=== PATIENT | male | born 1955 | race Caucasian/White ===

== ENCOUNTER 2023-12-10 17:35 | Inpatient (IN) | payer MEDICARE, OTHER, SELFPAY ==
[2023-12-10] VITALS (11 sets, daily range): BP systolic 107–170; BP diastolic 59–107; BMI 24.8; BMI 25.1
[2023-12-10 13:47] LABS: % Basophils 0.2 % (0-2); % Eosinophils 1.8 % (0-6); % Immature Granulocytes 0.8 % (0-0.5); % Lymphocytes 5.8 % (20.5-51.1); % Monocytes 6.8 % (1.7-9.3); % Neutrophils 84.6 % (42.2-75.2); Absolute Eosinophils 0.3 10^3/uL (0-0.7); Absolute Immature Granulocytes 0.1 10^3/uL (0-0.05); Absolute Monocytes 1.2 10^3/uL (0.1-0.6); Absolute Neutrophils 14.5 10^3/uL (1.4-6.5); Hemoglobin 11.4 g/dL (13.0-18.0); Mean Corp Hgb Conc. 33.5 g/dL (33.0-37.0); Mean Corpuscular Hgb 32.9 pg (27.0-31.0); Mean Platelet Volume 11.4 fL (7.4-10.4); Nucleated Red Blood Cells % 0 % (-); Platelet Count 210 10^3/uL (130-400); Red Blood Cell Count 3.47 10^6/uL (4.70-6.10); Red Cell Dist. Width 15.8 % (11.5-14.5); White Blood Cell Count 17.1 10^3/uL (4.8-10.8)
[2023-12-10 13:48] LABS: Urine Albumin Trace (Neg - Trace); Urine Bilirubin Negative (Negative); Urine Character Clear (Clear); Urine Color Yellow; Urine Glucose Negative (Negative); Urine Ketone Negative (Negative); Urine Leukocyte 2+ (Negative); Urine Nitrite Negative (Negative); Urine Occult Blood Negative (Negative); Urine Specific Gravity 1.015 (<1.030); Urine Urobilinogen Negative (Neg - 1+)
[2023-12-10 14:10] LABS: ALT (SGPT) 14 U/L (0-50); AST (SGOT) 17 U/L (17-59); Albumin 3.3 g/dl (3.5-5.0); Alkaline Phosphatase 100 U/L (38-126); Blood Urea Nitrogen 28 mg/dl (9-20); Calcium 9.2 mg/dl (8.4-10.2); Carbon Dioxide 20 mmol/L (22-30); Chloride 113 mmol/L (98-107); Estimated Creatinine Clearance 61 ml/min; Glucose 88 mg/dl (70-99); Lactic Acid 1.2 mmol/L (0.7-2.0); Potassium 3.8 mmol/L (3.5-5.1); Sodium 139 mmol/L (135-145); Total Bilirubin 0.5 mg/dl (0.2-1.3); Total Protein 5.8 g/dl (6.3-8.2); eGFR > 60.00
[2023-12-10 14:12] LABS: COVID-19 Antigen Negative (Negative)
[2023-12-10 14:12] LABS: Urine Red Blood Cell 0-2 /HPF (0-2)
[2023-12-10] MEDS: TYLENOL 650 MG PO (14:17)
--- NOTE | 2023-12-10 15:08 | ED.GENMED ---
History of Present Illness
General
Chief Complaint: Weakness
Source: patient and spouse
Exam Limitations: none
Time Seen by Provider: 12/10/23 14:36
Nursing documentation reviewed up to this point in time: agreed with
Travel History
Have you had any contact with someone who has COVID-19?: No
Do you have any symptoms of coronavirus? Fever > 100 degrees, chills, cough, shortness of breath, sore throat, loss of taste or smell, muscle aches, or headache?: Yes
Symptoms:: see note
History of Present Illness
History of Present Illness:
68-year-old male with significant past medical history including CAD with multiple stents, renal transplants x 2, chronic Castillo's palsy, chronic pain on chronic narcotics,reflux hypertension heart murmur hyperlipidemia SD presents to the ER for
evaluation by reports patient was very confused when he woke up this morning. They were not aware that he had a fever until patient got to the ER. Patient feels tired. Patient denies any chest pain shortness of breath. reports no cough
no complains of runny nose sore throat. Patient does make urine but denies any urinary problems.
reports that patient has been' off' the past several weeks to months. They have adjusted some of his medications. He is on chronic opiates for chronic jhbs-wd-hnak arthritis. He does take 1 tablet every 4 hours of oxycodone/acetaminophen.
He in addition is on Xanax 1 mg 2 tablets at bedtime.
Patient is on antirejection medication
Past History
Past History
ED Past Medical History: CAD, Cancer (Testicular CA with left testicle removed), CVA, HTN, Hypercholesterolemia, SD and Other (kidney transplant)
ED Past Surgical History: Cardiac (Stents X3, CABG) and Other (Kidney transplant, Hernia repair X7, Parathyroidectomy, Bladder surgery)
Social History
Tobacco: Former smoker
Alcohol: None
Drug: None
Personal:
Living: alone
Review of Systems
Review of Systems
Allergies reviewed?: Yes
Other source history: family
All Other Systems: ROS reviewed and negative except as documented in HPI and ROS
Constitutional: Reports fatigue; Denies fever
EENT: Reports no symptoms
Respiratory: Reports no symptoms; Denies cough or trouble breathing
Cardiac: Reports no symptoms
ABD/GI: Reports no symptoms
Musculoskeletal: Reports no symptoms
Skin: Reports no symptoms
Neurological: Reports other (Increased confusion)
Psychiatric: Reports no symptoms
Phy Exam
General Physical Exam
General Presentation: no apparent distress
General age: appears stated age
General Skin: warm and dry
General Habitus: normal
General Mental: alert
General Hydration: appears well hydrated
Cardiovascular Exam
Cardiovascular Exam: regular rate/rhythm, normal peripheral pulses and systolic murmur
Pulmonary Exam
Pulmonary Exam: no respiratory distress and other (crackles left mid )
Gastrointestinal Exam
Gastrointestinal Exam: non tender and soft
Neurological Exam
Neurological Exam: alert
Musculoskeletal Exam
Musculoskeletal Exam: full ROM
Skin Exam
Skin Exam: normal color and warm/dry
Psychiatric Exam
Psychiatric Exam: normal mood/affect
Course
Orders/Labs/Results
Orders:
Orders
12/10/23 13:36
Electrocardiogram (*1) Urgent
Reason for Study: Other
Other Reason for Exam: Possible Sepsis
Cardiac Monitoring- Treatment ONCE
EKG- Treatment ONCE
IV Insert/Care/Rem.- Treatment PRN
CR Chest - 2 Views Urgent
Comment:
Reason For Exam: suspected infection
O2 Therapy [RESP] Urgent
Titrate/Wean O2 to maintain O2 sat greater than (%): 93
Special Instructions: TO MAINTAIN CONTINUOUS O2 SATS > OR = 93%
Pulse Ox/cont/shift [RESP] Urgent
Quantity: 1
Special Instructions: CONTINUOUS
12/10/23 13:39
Comprehensive Metabolic Panel Urgent
Lactic Acid Q4H
Comment: ON ICE, CANCEL 2ND ORDER IF FIRST LACTIC ACID LEVEL <2
Urinalysis Reflex To Culture Urgent
Date Specimen was Collected: 12/10/23
Time Specimen was Collected: 13:36
Urine Microscopic Reflex Cult Urgent
Blood Culture Q30M
GUILLERMO Source: Blood/Venous
Specimen Description:
Comment: FROM 2 SEPARATE SITES
Urine Culture Urgent
GUILLERMO Source: U
Specimen Description:
Date Specimen was Collected: 12/10/23
Time Specimen was Collected: 13:36
12/10/23 13:40
Complete Blood Count/With Diff Urgent
12/10/23 13:47
Blood Culture Q30M
GUILLERMO Source: Blood/Venous
Specimen Description:
Comment: FROM 2 SEPARATE SITES
12/10/23 13:48
COVID-19 Antigen Urgent
Source: Nasal Swab
Influenza A+B Rapid Molecular Urgent
GUILLERMO Source: Nasal Swab
Specimen Description:
12/10/23 14:09
Acetaminophen [Tylenol] 650 mg .ROUTE .STK-MED ONE
12/10/23 14:10
Acetaminophen [Tylenol] 650 mg PO NOW STA
12/10/23 15:20
0.9% Sodium Chloride 500 ml [Nss] 500 ml IV BOLUS
Abnormal Lab Results
12/10/23 12/10/23
13:39 13:40
WBC 17.1 H 10^3/uL
(4.8-10.8)
RBC 3.47 L 10^6/uL
(4.70-6.10)
Hgb 11.4 L g/dL
(13.0-18.0)
Hct 34.0 L %
(39.0-52.0)
MCV 98.0 H fL
(80.0-94.0)
MCH 32.9 H pg
(27.0-31.0)
RDW 15.8 H %
(11.5-14.5)
MPV 11.4 H fL
(7.4-10.4)
Abs Immat Gran (auto) 0.1 H 10^3/uL
(0-0.05)
Absolute Neuts (auto) 14.5 H 10^3/uL
(1.4-6.5)
Absolute Lymphs (auto) 1.0 L 10^3/uL
(1.2-3.4)
Absolute Monos (auto) 1.2 H 10^3/uL
(0.1-0.6)
Immature Gran % 0.8 H %
(0-0.5)
Neutrophils % 84.6 H %
(42.2-75.2)
Lymphocytes % 5.8 L %
(20.5-51.1)
Chloride 113 H mmol/L
(98-107)
Carbon Dioxide 20 L mmol/L
(22-30)
BUN 28 H mg/dl
(9-20)
Total Protein 5.8 L g/dl
(6.3-8.2)
Albumin 3.3 L g/dl
(3.5-5.0)
Leukocyte Esterase Rfl 2+ A
(Negative)
12/10/23 13:40
12/10/23 13:39
Vital Signs
Initial and Last Documented VS:
Initial Vital Signs
BP
140/107
12/10/23 13:11
Last Documented Vital Signs
Temp Pulse Resp BP Pulse Ox
101.1 F H 67 19 135/59 93
12/10/23 13:13 12/10/23 15:15 12/10/23 15:15 12/10/23 15:00 12/10/23 14:00
Recruitment Manager consulted with Physician
Recruitment Manager consulted with physician?: Yes
Name of Physician Consulted: Victor M
MDM/Problems Addressed
Differential Diagnosis Includes:
Not limited to dehydration electrolyte abnormality infection
MDM/Problems Addressed:
Patient is a 68-year-old male with significant medical history as documented end-stage renal disease with renal transplant, CAD with multiple stents along with other medical history presented for confusion as per . Patient was found to be
febrile at one 1.1 with a white count of 17,000 normal lactic acid. X-ray does show left-sided pneumonia. Patient negative for COVID-negative for flu. Patient appears dry on exam with an elevated BUN of 28 with a normal creatinine normal stable
potassium 3.8 normal sodium of 139. Patient was given fluids blood culture sent IV antibiotics will require mission
Chronic conditions affecting care:
Renal transplant on antirejection medication, multiple cardiac stents hypertension
Acute Exacerbation and/or Progression of Chronic Illness: Immunosuppressed
*Radiology
Radiology exam reviewed: radiology read reviewed
*Pulse Oximetry
Patient hypoxic: no
*EKG
Interpreted by ED Provider?: Yes
Heart Rate: 70
Rate: normal
Rhythm: sinus
Ischemia: non-specific ST changes
*Critical Care Note
Total Time (30-74mins, 75-104mins- exclusive of procedures): Not Applicable
ED Attending Note
-
Portions of this chart may have been created with voice recognition software.� Occasional wrong word or��sound alike� substitutions may have occurred due to the inherent limitations of voice recognition software.
Discharge Plan
Departure
Patient Disposition: Admit
Date of Disposition: 12/10/23
Time of Disposition: 16:49
Admit to: Med/Surg
Admit to doctor: hospitalist
Presentation/result/management discussed w/ accepting MD/DO: Hospitalist
Patient with high blood pressure during this ER visit?: Yes
Condition: Fair
Covid-19: Negative COVID-19
Discharge Problem:
Pneumonia, Altered mental status, Fever
Prescriptions:
No Action
metoprolol tartrate 50 MG tablet
50 mg PO BID
colchicine 0.6 MG tablet
0.6 mg PO DAILY
prednisone 5 MG tablet
5 mg PO DAILY
oxycodone-acetaminophen [Percocet] 1 EACH tablet
1 tab PO Q4HPRN PRN (Reason: moderate RA ANKLE pain)
Patient Comments:
PATIENT LASTED PICKED UP ON 10/18/20 #180
tamsulosin 0.4 MG capsule
0.8 mg PO HS
allopurinol 300 MG tablet
300 mg PO DAILY
ranolazine 500 MG tablet extended release 12 hr
500 mg PO BID
cholecalciferol (vitamin D3) 1,000 UNITS tablet
1,000 units PO DAILY
clopidogrel 75 MG tablet
75 mg PO DAILY Qty: 90 3RF
pantoprazole 40 MG tablet,delayed release (DR/EC)
40 mg PO DAILY Qty: 90 3RF
aspirin 81 MG tablet,delayed release (DR/EC)
81 mg PO DAILY Qty: 1 0RF
ezetimibe 10 MG tablet
10 mg PO HS
atorvastatin 40 MG tablet
40 mg PO HS
mycophenolate mofetil [CellCept] 250 MG capsule
250 mg PO BID
senna 8.6 MG capsule
2 tab PO HS
PreserVision AREDS 1 CAP capsule
1 cap PO BID
Propylene Glycol/Peg 400 [Genteal Tears Severe Gel Drops] 8 ML Drops.Gel
8 ml OP HS
methenamine hippurate [Hiprex] 1 gram Tablet
1 g PO BID
nitroglycerin 0.4 mg Tablet, Sublingual
0.4 mg SUBLINGUAL Q5-15M PRN (Reason: chest pain)
alprazolam [Xanax] 1 mg Tablet
1 mg PO TID
tacrolimus [Prograf] 1 mg Capsule
See Rx Instructions .ROUTE .COMPLEX
Rx Instructions:
3 mg orally every morning
2 mg orally every evening
valsartan 40 mg Tablet
40 mg PO BID
bupropion HCl [Wellbutrin XL] 300 mg Tablet Extended Release 24 Hr
300 mg PO DAILY
gabapentin 100 mg Capsule
200 mg PO HS
Systane (PF) 0.4-0.3 % Dropperette
1 drp OPHTHALMIC (EYE) TID
docusate sodium 100 mg Capsule
100 mg PO HS
isosorbide mononitrate 30 mg Tablet Extended Release 24 Hr
30 mg PO DAILY Qty: 90 5RF
Referrals:
Mode Rubio MD [Family Provider] -
Interventions
Interventions:
*Risk Screen - Suicide Last Done: 12/10/23 15:05
*General Assessment Last Done: 12/10/23 15:05
*Neglect/Abuse Screening Last Done: 12/10/23 13:35
ED- Fall Risk Assessment Last Done: 12/10/23 14:04
*ED COVID-19 Vaccine History Last Done: 12/10/23 13:38
ED- Cardiac Assessment Last Done: 12/10/23 14:04
ED- Neurological Assessment Last Done: 12/10/23 14:04
ED- Pulmonary Assessment Last Done: 12/10/23 14:04
[2023-12-10] MEDS: NSS 500 IV (15:28)
[2023-12-10] MEDS: AZACTAM 2000 MG IV (17:06)
[2023-12-10] MEDS: VANCOCIN 200 IV (17:22)
--- NOTE | 2023-12-10 17:27 | HPS.HSE ---
Family Physician
-
Family Physician: Mode Rubio
Chief Complaint
-
malaise
History of Present Illness
68yo M with PMHx of HTN, HLD, CAD s/p stents, L Eden palsy, kidney transplany @1996 and 2007 cmae with 1 day of weakness and mild confusion. He fell to the floor and had no strength to get up. XR in ED showed L midlung pneumonia
Medical History
Past Medical History
Past Medical History: Reports Other
Additional Past Medical History:
See HPI
Past Surgical History: Reports Other
Additional Past Surgical History:
See HPI
Social History
Tobacco: Non-smoker
Alcohol: None
Drug: None
Family History
Family History: Not pertinent
Allergies / Home Medications
Allergies reflects when Allergies were last updated in [employer].
Home Medications with original date entered in [employer]
Allergy/Medication List:
Allergies
Allergy/AdvReac Type Severity Reaction Status Date / Time
adhesive tape Allergy Rash Verified 07/10/23 11:46
amoxicillin Allergy Rash/NAUSEA Verified 04/25/22 21:39
levofloxacin [From Levaquin] Allergy Nausea Verified 04/25/22 14:12
nitrofurantoin Allergy Rash Verified 04/25/22 14:12
[From Macrobid]
sulfamethoxazole Allergy Nausea Verified 07/10/23 11:46
[From Bactrim]
Tetracyclines Allergy Rash/'swells Verified 04/25/22 21:39
Palate'
trimethoprim [From Bactrim] Allergy Nausea Verified 07/10/23 11:46
Home Medications
colchicine 0.6 mg tablet 0.6 mg PO DAILY Gout 04/27/19
allopurinol 300 mg tablet 300 mg PO DAILY Gout 10/03/19
cholecalciferol (vitamin D3) 25 mcg (1,000 unit) tablet 1,000 units PO DAILY Supplement 10/03/19
prednisone 5 mg tablet 5 mg PO DAILY Transplant 10/03/19
ranolazine 500 mg tablet,extended release,12 hr 500 mg PO BID Heart Failure 10/03/19
tamsulosin 0.4 mg capsule 0.8 mg PO HS Urinary issue 10/03/19
clopidogrel 75 mg tablet 75 mg PO DAILY #90 tabs 10/04/19
pantoprazole 40 mg tablet,delayed release 40 mg PO DAILY #90 tabs 10/04/19
ezetimibe 10 mg tablet 10 mg PO HS High cholesterol 01/26/20
atorvastatin 40 mg tablet 40 mg PO HS High cholesterol 10/24/20
mycophenolate mofetil 250 mg capsule (CellCept) 250 mg PO BID 07/25/21
vitamins A,C,X-lgyd-pamzef 4,296 mcg-226 mg-90 mg capsule (PreserVision AREDS) 1 cap PO BID 07/25/21
methenamine hippurate 1 gram tablet (Hiprex) 1 g PO BID 04/25/22
nitroglycerin 0.4 mg sublingual tablet 0.4 mg sublingual [id number] PRN chest pain 04/25/22
alprazolam 1 mg tablet (Xanax) 2 mg PO HS 07/10/23
bupropion HCl 300 mg 24 hr tablet, extended release (Wellbutrin XL) 300 mg PO DAILY 07/10/23
docusate sodium 100 mg capsule 100 mg PO HS 07/10/23
gabapentin 100 mg capsule 200 mg PO HS 07/10/23
peg 400-propylene glycol (PF) 0.4 %-0.3 % eye drops in a dropperette (Systane (PF)) 1 drp BOTH EYES HS 07/10/23
tacrolimus 1 mg capsule, immediate-release (Prograf) 3 mg PO DAILY 07/10/23
alprazolam 1 mg tablet 1 mg PO DAILY PRN anxiety 12/10/23
aspirin 81 mg tablet,delayed release 81 mg PO HS 12/10/23
isosorbide mononitrate 60 mg tablet,extended release 24 hr 60 mg PO BID 12/10/23
metoprolol succinate 50 mg tablet,extended release 24 hr 50 mg PO BID 12/10/23
oxycodone-acetaminophen 10 mg-325 mg tablet 1 tab PO Q4H PRN moderate to severe pain 12/10/23
tacrolimus 1 mg capsule, immediate-release 2 mg PO HS 12/10/23
valsartan 80 mg tablet 80 mg PO BID 12/10/23
Review of Systems
-
A 12 point ROS was completed and negative except as noted: Yes
Constitutional: Reports See HPI
Physical Exam
Vital Signs
Vital Signs
Temp Pulse Resp BP Pulse Ox
101.1 F H 60 20 135/70 94
12/10/23 13:13 12/10/23 16:30 12/10/23 16:30 12/10/23 16:23 12/10/23 16:30
Physical Exam
General: Well Developed, Well Nourished and No Apparent Distress
HEENT: NormoCephalic, Anicteric and Moist mucous membranes
Respiratory: Rales (on L base)
Cardiac: S1/S2 and Regular Rhythm
GI: Soft, Non Tender and Non Distended
Musculoskeletal: No Clubbing, No Cyanosis and No Edema
Skin: Warm; No Rash
Neuro: Awake, Alert, Oriented, AO x 3 and Cranial Nerves Intact (L face bells palsy )
Psych: Calm
Laboratory Results
-
12/10/23 13:40
12/10/23 13:39
Laboratory Results
Lactic Acid 1.2 mmol/L (0.7-2.0) 12/10/23 13:39
Lactic Acid Cancelled 12/10/23 13:39
Total Bilirubin 0.5 mg/dl (0.2-1.3) 12/10/23 13:39
AST 17 U/L (17-59) 12/10/23 13:39
ALT 14 U/L (0-50) 03/14/24 13:39
Alkaline Phosphatase 100 U/L (38-126) 12/10/23 13:39
Impression/Plan
-
A/P:
#malaise 2/2 L pneumonia with unspecified organism in immunocompromized patient
Ceftriaxone/Doxy since patient is non-toxic appearing, hemodynamically stable
not producing sputum
Bcx pending
COVID-19 and Influenza neg
UA also pending
#Recent fall
CT head
not on blood thinner
#Hx of kidney transplant
check Prograf level
Cellcept 250mg BID
Prograf 2mg BID (recently AM dose decreased)
#Mild macrocytic anemia
check B12, folate
#Essential HTN
#HLD
#CAD s/p PCI
#Aortic insufficiency
#PAD
#Iatrogenic adrenal insufficiency
cont home meds
DVT ppx hep
Full code
This interaction required high level of medical decision making due to PMHx complexity
[2023-12-10] MEDS: ZITHROMAX INFUSION 250 IV (18:32)
--- NOTE | 2023-12-10 21:09 | PTCARENOTE ---
Pt admitted to room 2124 from Ed, aaox3, no c/o pain, oriented to room and call light. Pt stating that has dentures in his personal bag and will get them out when needed for breakfast.
[2023-12-10] MEDS: PROGRAF 2 MG PO (22:19)
[2023-12-10] MEDS: ZETIA 10 MG PO (22:20)
[2023-12-10] MEDS: RANEXA EXTENDED RELEASE 500 MG PO (22:20)
[2023-12-10] MEDS: NEURONTIN 200 MG PO (22:21)
[2023-12-10] MEDS: CELLCEPT 250 MG PO (22:21)
[2023-12-10] MEDS: ASPIR LOW (ENTERIC COATED) 81 MG PO (22:22)
[2023-12-10] MEDS: TOPROL XL 50 MG PO (22:22)
[2023-12-10] MEDS: FLOMAX 0.800000000000000044 MG PO (22:22)
[2023-12-10] MEDS: DIOVAN 80 MG PO (22:22)
[2023-12-10] MEDS: IMDUR (EXTENDED RELEASE) 60 MG PO (22:22)
[2023-12-10] MEDS: LIPITOR 40 MG PO (22:23)
[2023-12-10] MEDS: COLACE 100 MG PO (22:23)
[2023-12-10] MEDS: XANAX 1 MG PO (23:03)
[2023-12-10] MEDS: HEPARIN 5000 UNITS SC (23:05)
[2023-12-10] MEDS: STERILE WATER FOR INJECTION 10 ML IV (23:05)
[2023-12-10] MEDS: ROCEPHIN 1000 MG IV (23:05)
[2023-12-11 05:46] LABS: % Basophils 0.2 % (0-2); % Eosinophils 1.9 % (0-6); % Immature Granulocytes 0.8 % (0-0.5); % Lymphocytes 10.3 % (20.5-51.1); % Monocytes 7.3 % (1.7-9.3); % Neutrophils 79.5 % (42.2-75.2); Absolute Eosinophils 0.2 10^3/uL (0-0.7); Absolute Immature Granulocytes 0.1 10^3/uL (0-0.05); Absolute Lymphocytes 1.3 10^3/uL (1.2-3.4); Absolute Monocytes 0.9 10^3/uL (0.1-0.6); Absolute Neutrophils 10.1 10^3/uL (1.4-6.5); Hematocrit 31.9 % (39.0-52.0); Hemoglobin 10.6 g/dL (13.0-18.0); Mean Corp Hgb Conc. 33.2 g/dL (33.0-37.0); Mean Corpuscular Hgb 32.4 pg (27.0-31.0); Mean Corpuscular Volume 97.6 fL (80.0-94.0); Nucleated Red Blood Cells % 0 % (-); Platelet Count 180 10^3/uL (130-400); Red Blood Cell Count 3.27 10^6/uL (4.70-6.10); Red Cell Dist. Width 15.6 % (11.5-14.5); White Blood Cell Count 12.7 10^3/uL (4.8-10.8)
[2023-12-11 06:00] VITALS: BMI 25.0
[2023-12-11 06:13] LABS: ALT (SGPT) 13 U/L (0-50); AST (SGOT) 16 U/L (17-59); Albumin 2.9 g/dl (3.5-5.0); Alkaline Phosphatase 93 U/L (38-126); Blood Urea Nitrogen 27 mg/dl (9-20); Calcium 9.3 mg/dl (8.4-10.2); Carbon Dioxide 21 mmol/L (22-30); Chloride 116 mmol/L (98-107); Estimated Creatinine Clearance 65 ml/min; Glucose 86 mg/dl (70-99); Magnesium 1.2 mg/dl (1.6-2.3); Potassium 4.2 mmol/L (3.5-5.1); Sodium 139 mmol/L (135-145); Total Bilirubin 0.6 mg/dl (0.2-1.3); Total Protein 5.4 g/dl (6.3-8.2); eGFR > 60.00
[2023-12-11 07:16] LABS: Folate 12.7 ng/ml (2.76-20); Vitamin B12 502 pg/ml (239-931)
[2023-12-11 07:30] VITALS: BP 162/74
[2023-12-11] MEDS: PROGRAF 2 MG PO ×2 (08:30→20:20)
[2023-12-11] MEDS: WELLBUTRIN XL (24 hour extended release) 300 MG PO (08:30)
[2023-12-11] MEDS: COLCHICINE 0.599999999999999978 MG PO (08:31)
[2023-12-11] MEDS: PROTONIX 40 MG PO (08:31)
[2023-12-11] MEDS: IMDUR (EXTENDED RELEASE) 60 MG PO ×2 (08:31→20:24)
[2023-12-11] MEDS: CELLCEPT 250 MG PO ×2 (08:31→20:19)
[2023-12-11] MEDS: PLAVIX 75 MG PO (08:31)
[2023-12-11] MEDS: ZYLOPRIM 300 MG PO (08:31)
[2023-12-11] MEDS: DIOVAN 80 MG PO ×2 (08:31→20:24)
[2023-12-11] MEDS: DELTASONE 5 MG PO (08:31)
[2023-12-11] MEDS: RANEXA EXTENDED RELEASE 500 MG PO ×2 (08:31→20:25)
[2023-12-11] MEDS: TOPROL XL 50 MG PO ×2 (08:31→20:20)
[2023-12-11] MEDS: HEPARIN 5000 UNITS SC ×3 (08:32→23:05)
--- NOTE | 2023-12-11 10:19 | W.PN.HOSP.TC ---
Today's Communication/Plan
-
AB
Stools
ID eval
Assessment / Plan
Assessment / Plan
68-year-old male with generalized weakness and mild confusion
Cardiovascular system S1-S2 appreciated
Chest clear to auscultation
Abdomen soft and nontender
No evidence of cellulitis
# Pneumonia in an immunocompromise patient
Due to his current pneumonia with ceftriaxone doxycycline
If possible get sputum cultures
Blood cultures ordered
Fluids none COVID-negative
White count better
Patient complains of diarrhea-check stool studies also
ID evaluation
# Recent fall
CT head-no acute changes
# Mild anemia hemoglobin
# Hypomagnesemia-replace
# History of kidney transplant 1996 which failed and got another transplant in 2007
Continue Prograf 2 mg twice daily-recently morning dose decreased
Continue CellCept 250 twice daily
Prednisone 5 mg daily
Check Prograf level
# Hypertension-valsartan 80 mg p.o. twice daily, metoprolol 50 twice daily
# Hyperlipidemia/atherosclerosis-Zetia, statin
# Coronary artery disease with history of stent
History of CABG
History of non-STEMI
Cath 06/2023-severe calcific multivessel CAD with patent THIBODEAUX-LAD and patent LRA�RPDA bypass grafts�.Unsuccessful attempted PCI of distal OM 2 branch due to inability to pass balloon catheter to the lesion site.
Medical therapy recommended
Continue Ranexa 500 twice daily, metoprolol 50 twice daily, valsartan 80 mg p.o. twice daily, Imdur 60 twice daily, Plavix, atorvastatin, aspirin
EKG-anterior ischemia the inversions in anterior inferior leads
Check troponins
# Aortic regurgitation
# Peripheral artery disease, antiplatelets and statin
# History of Castillo's palsy
# Chronic back pain/arthritis/sciatica/Neuropathy
Gabapentin
Opiate dependent for pain
# History of TIA-on aspirin, Plavix, statin
# History of testicular cancer with history of left orchiectomy
# Diverticulosis/History of IBS/History of hiatal hernia/History of bowel obstruction
# Anxiety/depression-continue Xanax 1 mg daily as needed 90 mg p.o. at bedtime
Continue Wellbutrin 300 mg p.o. daily
# Gout-continue colchicine, allopurinol
# History of rheumatoid arthritis
# History of parathyroidectomy
# History of alcohol abuse sober since 2008
# Hypoalbuminemia
# Ex-smoker
# DVT prophylaxis subcutaneous heparin
# Full code
Discussed with nursing
Anticipated Discharge: 24 - 48 hours
Subjective/Interval History
-
Date of Service: December 11, 2023
Objective Data
-
Labs:
Laboratory Results
12/11/23
05:36
WBC 12.7 H
Hgb 10.6 L
Hct 31.9 L
Plt Count 180
Sodium 139
Potassium 4.2
Chloride 116 H
Carbon Dioxide 21 L
BUN 27 H
Creatinine 0.9
Glucose 86
Calcium 9.3
Total Bilirubin 0.6
AST 16 L
ALT 13
Alkaline Phosphatase 93
Vital Signs:
Vital Signs
Temp Pulse Resp BP Pulse Ox
98.2 F 68 18 162/74 96
12/11/23 07:30 12/11/23 07:30 12/11/23 07:30 12/11/23 08:31 12/11/23 07:30
I&O
12/10/23 12/11/23 12/12/23
06:59 06:59 06:59
Intake Total 420 / 420
Balance 420 / 420
--- NOTE | 2023-12-11 10:28 | CON.ID ---
Consultation
-
Date/Time Consultation Requested: 12/11/2023, 1020
Date/Time Consultation Performed: 12/11/2023, 1030
Requesting Provider: Dr. Perez Jorge
Performing Provider: Dr. Sadaf Capone
Reason for Consultation: Renal transplant, PNA
Chief Complaint / Past History
Chief Complaint
Weakness
History of Present Illness
68 year old male with history of CAD s/p CABG/stents, renal transplant x 2, who presented to ED 12/09 c/o 1 day history of weakness and lethargy. No fever/chills at home. No MATUTE, rhinorrhea, sore throat. No cough/SOB. No chest pain. No dysuria or
pain over transplant kidney. No N/V. Had diarrhea last night, better today. No abd pain. No ill contacts. No recent travel. In ED temp 101.7, wbc 17.1. CXR: right mid lung opacity. He is feeling a little better today.
Past History
Additional Past Medical History:
HTN
Dyslipidemia
CAD s/p CABG, stents
Renal transplant x 2 1996, 2007
CVA
Left Castillo's palsy
PVD
Gout
BPH
Allergy History:
adhesive tape Allergy (Verified 07/10/23 11:46)
Rash
amoxicillin Allergy (Verified 04/25/22 21:39)
Rash/NAUSEA
levofloxacin [From Levaquin] Allergy (Verified 04/25/22 14:12)
Nausea
nitrofurantoin [From Macrobid] Allergy (Verified 04/25/22 14:12)
Rash
sulfamethoxazole [From Bactrim] Allergy (Verified 07/10/23 11:46)
Nausea
Tetracyclines Allergy (Verified 04/25/22 21:39)
Rash/'swells Palate'
trimethoprim [From Bactrim] Allergy (Verified 07/10/23 11:46)
Nausea
Medications Reviewed: Yes
Current Antibiotics:
Azithromycin
Ceftriaxone
Social History
Tobacco: Former Smoker
Alcohol: None
Drug: None
Living: Other (Girlfriend)
Employment: Retired
Family History
Family History: Not Pertinent
Review of Systems
Review of Systems
General: Change in Appetite
HEENT: Negative Stiff Neck, Sinus Problems, Headache or Pharyngitis
Cardiovascular: Negative Chest Pain
Respiratory: Negative Dyspnea or Cough
Gasteroenterology: Negative Nausea or Vomiting
Genital / Urological: Negative Dysuria or Flank Pain
Endocrine: Weakness
Musculoskeletal: Negative Arthralgias
Neurological: Negative Headache or Dizziness
All systems: All other systems were reviewed and were negative
Vital Signs
Temp Pulse Resp BP Pulse Ox
98.2 F 68 18 162/74 96
12/11/23 07:30 12/11/23 07:30 12/11/23 07:30 12/11/23 08:31 12/11/23 07:30
Selected Entries
12/10/23
13:13
Temp 101.1 F H
Physical Exam
Physical Exam
Constitutional: No Acute Distress and Comfortable
Eyes: No Conjunctival Hemorrhage and Sclera Anicteric
Cardiovascular: Regular Rate and S1/S2
Pulmonary: Clear
Gastrointestinal: Soft, Non Tender, Non Distended and Normal Bowel Sounds
Genito-Urinary: Other (Left lower abdomen renal transplant nontender); Negative Suprapubic Tenderness
Extremities: Negative Edema
Neurological: AO x 3
Lab / Diagnostic Study Results
12/11/23 05:36
12/11/23 05:36
Abs Immat Gran (auto) 0.1 10^3/uL (0-0.05) H 12/11/23 05:36
Absolute Neuts (auto) 10.1 10^3/uL (1.4-6.5) H 12/11/23 05:36
Absolute Lymphs (auto) 1.3 10^3/uL (1.2-3.4) 12/11/23 05:36
Absolute Monos (auto) 0.9 10^3/uL (0.1-0.6) H 12/11/23 05:36
Absolute Basos (auto) 0.0 10^3/uL (0-0.2) 12/11/23 05:36
Immature Gran % 0.8 % (0-0.5) H 12/11/23 05:36
Neutrophils % 79.5 % (42.2-75.2) H 12/11/23 05:36
Lymphocytes % 10.3 % (20.5-51.1) L 12/11/23 05:36
Monocytes % 7.3 % (1.7-9.3) 12/11/23 05:36
Eosinophils % 1.9 % (0-6) 12/11/23 05:36
Basophils % 0.2 % (0-2) 12/11/23 05:36
Lactic Acid 1.2 mmol/L (0.7-2.0) 12/10/23 13:39
Lactic Acid Cancelled 12/10/23 13:39
Microbiology Results
Micro:
12/10/23 13:48 Influenza Types A & B ([facility]) - Final
Nasal Swab Negative for Influenza A & B, NAAT
Negative results must be combined with clinical observations
and patient history.
Nucleic Acid Amplification test (NAAT)performed on the
[employer] platform.
12/10/23 13:39 Urine Culture - Pending
Urine
12/10/23 13:47 Blood Culture - Pending
Blood/Venous
12/10/23 13:39 Blood Culture - Pending
Blood/Venous
12/10/23 CXR: Airspace opacity in the left midlung compatible with pneumonia.�
Assessment / Plan
# CAP
# fever, leukocytosis
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
# Multiple abx allergies/intolerances
- Check urine legionella and pneumococcal Ag
-Follow blood cx's
-Agree with ceftriaxone and azithromycin
- Follow temp, wbc
[2023-12-11 11:14] LABS: Troponin I 0.015 ng/ml
[2023-12-11] MEDS: MAGNESIUM SULFATE 50 IV (12:03)
--- NOTE | 2023-12-11 15:28 | FALL ---
Description of Fall:
ringing appropriately all day but decided to take himself to bathroom. he was on his knees when the tech went in. pt states 'this happens all the time at home' and that he is fine. pt states he did not fall on butt or hit his head.
Injuries Noted:
skin tear on R upper arm
Action Taken:
pt placed on bed alarm and chair alarm. pt adamately upset about this. pt educated on ringing for assistance. pt skin tear cleaned and dressed. small on arm.
Name of Provider Notified: Dr. Jorge
[2023-12-11 16:01] VITALS: BP 151/77
--- NOTE | 2023-12-11 16:24 | CM ---
Patient sleeping soundly. Initial assessment completed with significant other, Andrey. Patient and Andrey live in a one story home, no basement, with ramp. Patient uses a hurricane cane when out of the home and no device in the home. He does have
a RW, and w/ch. No in-home services, no psychiatric hospitalizations. Pharmacy is [place] and PCP is Dr. Mode Rubio. Anticipate home with no needs vs VN.
[2023-12-11] MEDS: ZITHROMAX INFUSION 250 IV (17:22)
[2023-12-11 17:31] LABS: Troponin I < 0.012 ng/ml
--- NOTE | 2023-12-11 17:35 | W.PN.UPDATE ---
Update Note
Progress Note Update
Pt had a fall.
Says he was in the bathroom was looking for something and lost balance. He landed on the right side he denies hitting his head. No pain. He has a small laceration/skin tear on the right elbow.
Spoke to patient's significant other and updated.
She said that he loses balance and he needs to be careful about this which she always reminds him.
Updated about his medical condition.
[2023-12-11] MEDS: REFRESH EYE DROPS (PF) 1 DROPS BOTH EYES (20:25)
[2023-12-11] MEDS: NEURONTIN 200 MG PO (20:32)
[2023-12-11] MEDS: FLOMAX 0.800000000000000044 MG PO (20:33)
[2023-12-11] MEDS: ZETIA 10 MG PO (20:33)
[2023-12-11] MEDS: ASPIR LOW (ENTERIC COATED) 81 MG PO (20:34)
[2023-12-11] MEDS: COLACE PO (20:34)
[2023-12-11] MEDS: LIPITOR 40 MG PO (20:38)
[2023-12-11 23:02] VITALS: BP 168/75
[2023-12-11] MEDS: ROCEPHIN 1000 MG IV (23:04)
[2023-12-11] MEDS: STERILE WATER FOR INJECTION 10 ML IV (23:04)
[2023-12-11] MEDS: XANAX 1 MG PO (23:05)
[2023-12-12 07:20] VITALS: BP 138/69
[2023-12-12 07:45] LABS: Hemoglobin 11.2 g/dL (13.0-18.0); Mean Corp Hgb Conc. 33.9 g/dL (33.0-37.0); Mean Corpuscular Hgb 32.3 pg (27.0-31.0); Mean Corpuscular Volume 95.1 fL (80.0-94.0); Mean Platelet Volume 11.3 fL (7.4-10.4); Platelet Count 204 10^3/uL (130-400); Red Blood Cell Count 3.47 10^6/uL (4.70-6.10); Red Cell Dist. Width 15.7 % (11.5-14.5)
[2023-12-12 08:48] LABS: Blood Urea Nitrogen 29 mg/dl (9-20); Calcium 10.2 mg/dl (8.4-10.2); Carbon Dioxide 18 mmol/L (22-30); Chloride 113 mmol/L (98-107); Estimated Creatinine Clearance 58 ml/min; Glucose 92 mg/dl (70-99); Magnesium 1.6 mg/dl (1.6-2.3); Potassium 3.6 mmol/L (3.5-5.1); Sodium 143 mmol/L (135-145); eGFR > 60.00
[2023-12-12] MEDS: DIOVAN 80 MG PO ×2 (09:07→19:59)
[2023-12-12] MEDS: PROGRAF 2 MG PO ×2 (09:08→19:59)
[2023-12-12] MEDS: CELLCEPT 250 MG PO ×2 (09:08→19:59)
[2023-12-12] MEDS: WELLBUTRIN XL (24 hour extended release) 300 MG PO (09:08)
[2023-12-12] MEDS: PROTONIX 40 MG PO (09:08)
[2023-12-12] MEDS: RANEXA EXTENDED RELEASE 500 MG PO ×2 (09:08→19:58)
[2023-12-12] MEDS: TOPROL XL 50 MG PO ×2 (09:08→19:59)
[2023-12-12] MEDS: VITAMIN D3 (cholecalciferol) 25 MCG PO (09:08)
[2023-12-12] MEDS: COLCHICINE 0.599999999999999978 MG PO (09:09)
[2023-12-12] MEDS: IMDUR (EXTENDED RELEASE) 60 MG PO ×2 (09:09→19:59)
[2023-12-12] MEDS: HEPARIN 5000 UNITS SC ×3 (09:09→23:00)
[2023-12-12] MEDS: ZYLOPRIM 300 MG PO (09:09)
[2023-12-12] MEDS: DELTASONE 5 MG PO (09:09)
[2023-12-12] MEDS: PLAVIX 75 MG PO (09:09)
--- NOTE | 2023-12-12 09:28 | W.PN.ID1 ---
Date of Service
Date of Service: December 12, 2023
Today's Communication
Start po Vancomycin.
Assessment / Plan
# CAP
# fever, leukocytosis: improving
# Multiple abx allergies/intolerances
- Urine legionella and pneumococcal Ag negative
-Blood cx's - negative to date
- ceftriaxone and azithromycin (d3)
- Follow wbc
# Probable C. diff diarrhea
-Multiple BM's
-C. diff Ag+, toxin negative
- Will tx with Vancomycin 125mg po q6
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
#Additional Past Medical History:
HTN
Dyslipidemia
CAD s/p CABG, stents
Renal transplant x 2 1996, 2007
CVA
Left Castillo's palsy
PVD
Gout
BPH
Chief Complaint
-: Pneumonia
Subjective / Review of Systems
Loss balance and feel in bathroom yesterday. No injury.
Still with diarrhea.
Vital Signs / Physical Exam
Vital Signs
Vital Signs
Temp Pulse Resp BP Pulse Ox
98.3 F 65 18 138/69 93
12/12/23 07:20 12/12/23 09:08 12/12/23 07:20 12/12/23 09:08 12/12/23 07:20
Physical Exam
Constitutional: No Acute Distress and Comfortable
Cardiovascular: Regular Rate and S1/S2
Pulmonary: Clear
Gastrointestinal: Non Tender and Non Distended
Objective Data
Lab Data
Lab Results
12/12/23 07:22
12/12/23 07:22
Estimated Creat Clear 58 ml/min 12/12/23 07:22
Lactic Acid 1.2 mmol/L (0.7-2.0) 12/10/23 13:39
Lactic Acid Cancelled 12/10/23 13:39
Total Bilirubin 0.6 mg/dl (0.2-1.3) 12/11/23 05:36
AST 16 U/L (17-59) L 12/11/23 05:36
ALT 13 U/L (0-50) 12/11/23 05:36
Alkaline Phosphatase 93 U/L (38-126) 12/11/23 05:36
Most recent labs reviewed.
Micro Results:
12/11/23 23:36 C. difficile GDH Antigen & Toxins - Final
Feces/Stool C. difficile antigen positive, toxin negative.
Clostridium difficile present, but toxin not detected.
Patient may be a carrier, colonized with nontoxinogenic
strain or the level of toxin in sample is below detection
limits. This information should be used in conjunction with
the patient's clinical history.
12/10/23 13:39 Legionella Urinary Antigen - Final
Urine Negative for Legionella pneumophila Serogroup 1 antigen.
A negative result does not rule out the possiblity of
Legionella infection due to other serogroups or species of
Legionella. Clinical correlation is recommended.
Streptococcus pneumoniae Antigen (M - Final
Negative for Streptococcus pneumoniae antigen.
A negative result does not exclude infection with
Streptococcus pneumoniae. Clinical correlation is
recommended.
12/11/23 23:36 Salmonella/Shigella Culture - Pending
Feces/Stool Campylobacter Culture - Pending
Shiga Toxin Test - Pending
Stool Leukocytes - Pending
12/10/23 13:47 Blood Culture - Preliminary
Blood/Venous No Growth in 24 hours- Final report to follow
12/10/23 13:39 Blood Culture - Preliminary
Blood/Venous No Growth in 24 hours- Final report to follow
12/10/23 13:39 Urine Culture - Final
Urine
12/10/23 13:48 Influenza Types A & B (GISELLE) - Final
Nasal Swab Negative for Influenza A & B, NAAT
Negative results must be combined with clinical observations
and patient history.
Nucleic Acid Amplification test (NAAT)performed on the
[employer] platform.
12/10/23 CXR: Airspace opacity in the left midlung compatible with pneumonia.�
[2023-12-12] MEDS: FIRVANQ 125 MG PO ×3 (11:43→23:00)
[2023-12-12] MEDS: ZITHROMAX 500 MG PO (11:46)
--- NOTE | 2023-12-12 12:33 | W.PN.HOSP.TC ---
Today's Communication/Plan
-
AB
PO Vanco
Labs in am
Assessment / Plan
Assessment / Plan
68-year-old male with generalized weakness and mild confusion
Diarrhea
Cardiovascular system S1-S2 appreciated
Chest clear to auscultation
Abdomen soft and nontender
No evidence of cellulitis
# Pneumonia in an immunocompromise patient
ceftriaxone Zithromax
Blood cultures neg
Fluids none COVID-negative
White count better
ID evaluation
#C diff Ag positive- PO Vanco
# Recent fall
CT head-no acute changes
# Mild anemia hemoglobin
# Hypomagnesemia-replace
# History of kidney transplant 1996 which failed and got another transplant in 2007
Continue Prograf 2 mg twice daily-recently morning dose decreased
Continue CellCept 250 twice daily
Prednisone 5 mg daily
Check Prograf level
# Hypertension-valsartan 80 mg p.o. twice daily, metoprolol 50 twice daily
# Hyperlipidemia/atherosclerosis-Zetia, statin
# Coronary artery disease with history of stent
History of CABG
History of non-STEMI
Cath 06/2023-severe calcific multivessel CAD with patent THIBODEAUX-LAD and patent LRA�RPDA bypass grafts�.Unsuccessful attempted PCI of distal OM 2 branch due to inability to pass balloon catheter to the lesion site.
Medical therapy recommended
Continue Ranexa 500 twice daily, metoprolol 50 twice daily, valsartan 80 mg p.o. twice daily, Imdur 60 twice daily, Plavix, atorvastatin, aspirin
EKG-anterior ischemia the inversions in anterior inferior leads
Check troponins
# Aortic regurgitation
# Peripheral artery disease, Antiplatelets and Statin
# History of Castillo's palsy
# Chronic back pain/arthritis/sciatica/Neuropathy
Gabapentin
Opiate dependent for pain
# History of TIA-on Aspirin, Plavix, Statin
# History of testicular cancer with history of left orchiectomy
# Diverticulosis/History of IBS/History of hiatal hernia/History of bowel obstruction
# Anxiety/depression-continue Xanax 1 mg daily as needed 90 mg p.o. at bedtime
Continue Wellbutrin 300 mg p.o. daily
# Gout-continue colchicine, allopurinol
# History of rheumatoid arthritis
# History of parathyroidectomy
# History of alcohol abuse sober since 2008
# Hypoalbuminemia
# Ex-smoker
# DVT prophylaxis subcutaneous heparin
# Full code
Discussed with nursing
Anticipated Discharge: 24 - 48 hours
Subjective/Interval History
-
Date of Service: December 12, 2023
Objective Data
-
Labs:
Laboratory Results
12/12/23
07:22
WBC 12.0 H
Hgb 11.2 L
Hct 33.0 L
Plt Count 204
Sodium 143
Potassium 3.6
Chloride 113 H
Carbon Dioxide 18 L
BUN 29 H
Creatinine 1.0
Glucose 92
Calcium 10.2
Vital Signs:
Vital Signs
Temp Pulse Resp BP Pulse Ox
98.3 F 65 18 138/69 93
12/12/23 07:20 12/12/23 09:08 12/12/23 07:20 12/12/23 09:08 12/12/23 07:20
I&O
12/11/23 12/12/23 12/13/23
06:59 06:59 06:59
Intake Total 420 / 420 480 / 480
Output Total 500 / 500
Balance 420 / 420 -20 / -20
[2023-12-12] MEDS: MAGNESIUM SULFATE 100 IV (13:32)
[2023-12-12 15:15] VITALS: BP 131/65
[2023-12-12] MEDS: OCUVITE SOFTGEL 1 CAP PO (19:59)
[2023-12-12] MEDS: ZETIA 10 MG PO (22:30)
[2023-12-12] MEDS: REFRESH EYE DROPS (PF) 1 DROPS BOTH EYES (22:30)
[2023-12-12] MEDS: NEURONTIN 200 MG PO (22:30)
[2023-12-12] MEDS: FLOMAX 0.800000000000000044 MG PO (22:30)
[2023-12-12] MEDS: LIPITOR 40 MG PO (22:30)
[2023-12-12] MEDS: ASPIR LOW (ENTERIC COATED) 81 MG PO (22:30)
[2023-12-12] MEDS: COLACE PO (22:36)
[2023-12-12 22:57] LABS: Tacrolimus (Prograft - FK506) 10.8 ng/mL
[2023-12-12] MEDS: STERILE WATER FOR INJECTION 10 ML IV (23:00)
[2023-12-12] MEDS: ROCEPHIN 1000 MG IV (23:00)
[2023-12-12] MEDS: XANAX 1 MG PO (23:05)
[2023-12-12 23:23] VITALS: BP 153/74
[2023-12-13] MEDS: FIRVANQ 125 MG PO ×4 (05:03→23:04)
[2023-12-13 06:00] VITALS: BMI 24.3
[2023-12-13 07:05] VITALS: BP 157/71
[2023-12-13] MEDS: IMDUR (EXTENDED RELEASE) 60 MG PO ×2 (07:35→21:11)
[2023-12-13] MEDS: RANEXA EXTENDED RELEASE 500 MG PO ×2 (07:35→21:11)
[2023-12-13] MEDS: DIOVAN 80 MG PO ×2 (07:35→21:11)
[2023-12-13] MEDS: WELLBUTRIN XL (24 hour extended release) 300 MG PO (07:36)
[2023-12-13] MEDS: ZITHROMAX 500 MG PO (07:36)
[2023-12-13] MEDS: VITAMIN D3 (cholecalciferol) 25 MCG PO (07:36)
[2023-12-13] MEDS: PROTONIX 40 MG PO (07:36)
[2023-12-13] MEDS: ZYLOPRIM 300 MG PO (07:36)
[2023-12-13] MEDS: OCUVITE SOFTGEL 1 CAP PO ×2 (07:36→21:12)
[2023-12-13] MEDS: PLAVIX 75 MG PO (07:36)
[2023-12-13] MEDS: TOPROL XL 50 MG PO ×2 (07:36→21:10)
[2023-12-13] MEDS: COLCHICINE 0.599999999999999978 MG PO (07:36)
[2023-12-13] MEDS: CELLCEPT 250 MG PO ×2 (07:36→21:11)
[2023-12-13] MEDS: DELTASONE 5 MG PO (07:36)
[2023-12-13] MEDS: PROGRAF 2 MG PO ×2 (07:36→21:11)
[2023-12-13] MEDS: HEPARIN 5000 UNITS SC ×3 (07:37→23:04)
[2023-12-13 07:57] LABS: Hemoglobin 10.1 g/dL (13.0-18.0); Mean Corp Hgb Conc. 33.7 g/dL (33.0-37.0); Mean Corpuscular Hgb 32.3 pg (27.0-31.0); Mean Corpuscular Volume 95.8 fL (80.0-94.0); Mean Platelet Volume 11.9 fL (7.4-10.4); Platelet Count 211 10^3/uL (130-400); Red Blood Cell Count 3.13 10^6/uL (4.70-6.10); Red Cell Dist. Width 15.6 % (11.5-14.5); White Blood Cell Count 11.1 10^3/uL (4.8-10.8)
[2023-12-13 08:48] LABS: Blood Urea Nitrogen 27 mg/dl (9-20); Calcium 9.9 mg/dl (8.4-10.2); Carbon Dioxide 19 mmol/L (22-30); Chloride 113 mmol/L (98-107); Estimated Creatinine Clearance 58 ml/min; Glucose 90 mg/dl (70-99); Magnesium 1.7 mg/dl (1.6-2.3); Potassium 3.4 mmol/L (3.5-5.1); Sodium 143 mmol/L (135-145); eGFR > 60.00
[2023-12-13] MEDS: KCL 40 MEQ PO (10:02)
[2023-12-13] MEDS: MAGNESIUM SULFATE 102 GRAMS IV (10:02)
--- NOTE | 2023-12-13 10:12 | W.PN.HOSP.TC ---
Today's Communication/Plan
-
Replace potassium and magnesium
Continue antibiotics
Assessment / Plan
Assessment / Plan
68-year-old male with generalized weakness and mild confusion
Diarrhea better
Cardiovascular system S1-S2 appreciated
Chest clear to auscultation
Abdomen soft and nontender
No evidence of cellulitis
# Pneumonia in an immunocompromise patient
ceftriaxone Zithromax
Blood cultures neg
Fluids none COVID-negative
White count better
ID evaluation
#C diff Ag positive- PO Vanco
# Recent fall
CT head-no acute changes
# Mild anemia hemoglobin
# Hypomagnesemia-replace
# Hypokalemia - Replace
# History of kidney transplant 1996 which failed and got another transplant in 2007
Continue Prograf 2 mg twice daily-recently morning dose decreased
Continue CellCept 250 twice daily
Prednisone 5 mg daily
Prograf level with in range
# Hypertension-valsartan 80 mg p.o. twice daily, metoprolol 50 twice daily
# Hyperlipidemia/atherosclerosis-Zetia, statin
# Coronary artery disease with history of stent
History of CABG
History of non-STEMI
Cath 06/2023-severe calcific multivessel CAD with patent THIBODEAUX-LAD and patent LRA�RPDA bypass grafts�.Unsuccessful attempted PCI of distal OM 2 branch due to inability to pass balloon catheter to the lesion site.
Medical therapy recommended
Continue Ranexa 500 twice daily, metoprolol 50 twice daily, valsartan 80 mg p.o. twice daily, Imdur 60 twice daily, Plavix, atorvastatin, aspirin
EKG-anterior ischemia the inversions in anterior inferior leads
Check troponins
# Aortic regurgitation
# Peripheral artery disease, Antiplatelets and Statin
# History of Castillo's palsy
# Chronic back pain/arthritis/sciatica/Neuropathy
Gabapentin
Opiate dependent for pain
# History of TIA-on Aspirin, Plavix, Statin
# History of testicular cancer with history of left orchiectomy
# Diverticulosis/History of IBS/History of hiatal hernia/History of bowel obstruction
# Anxiety/depression-continue Xanax 1 mg daily as needed 90 mg p.o. at bedtime
Continue Wellbutrin 300 mg p.o. daily
# Gout-continue colchicine, allopurinol
# History of rheumatoid arthritis
# History of parathyroidectomy
# History of alcohol abuse sober since 2008
# Hypoalbuminemia
# Ex-smoker
# DVT prophylaxis subcutaneous heparin
# Full code
Discussed with nursing
Anticipated Discharge: Within 24 hours
Subjective/Interval History
-
Date of Service: December 13, 2023
Objective Data
-
Labs:
Laboratory Results
12/13/23
06:42
WBC 11.1 H
Hgb 10.1 L
Hct 30.0 L
Plt Count 211
Sodium 143
Potassium 3.4 L
Chloride 113 H
Carbon Dioxide 19 L
BUN 27 H
Creatinine 1.0
Glucose 90
Calcium 9.9
Vital Signs:
Vital Signs
Temp Pulse Resp BP Pulse Ox
97.7 F 62 12 157/71 92
12/13/23 07:05 12/13/23 07:36 12/13/23 07:05 12/13/23 07:36 12/13/23 07:05
I&O
12/12/23 12/13/23 12/14/23
06:59 06:59 06:59
Intake Total 480 / 480 600 / 600
Output Total 500 / 500
Balance -20 / -20 600 / 600
[2023-12-13 11:59] VITALS: BP 163/67; PULSE 66; O2SAT 97
--- NOTE | 2023-12-13 12:09 | PTOTSP ---
Pt is at functional baseline. PT will sign off.
--- NOTE | 2023-12-13 13:28 | W.PN.ID1 ---
Date of Service
Date of Service: December 13, 2023
Today's Communication
Tomorrow last day of ceftriaxone/azithromycin.
Continue po Vancomycin x 10d.
Assessment / Plan
# Probable C. diff diarrhea
-Multiple BM's resolving
-C. diff Ag+, toxin negative
- Continue Vancomycin 125mg po q6 x 10d through 12/22/23
# CAP
- Urine legionella and pneumococcal Ag negative
-Blood cx's - negative to date
- ceftriaxone and azithromycin (d4 of 5)
# fever resolved.
# leukocytosis: improving
# Multiple abx allergies/intolerances
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
#Additional Past Medical History:
HTN
Dyslipidemia
CAD s/p CABG, stents
Renal transplant x 2 1996, 2007
CVA
Left Castillo's palsy
PVD
Gout
BPH
Chief Complaint
-: Pneumonia
Subjective / Review of Systems
Feeling much improved. Had 2 loose BM today.
Vital Signs / Physical Exam
Vital Signs
Vital Signs
Temp Pulse Resp BP Pulse Ox
97.7 F 62 12 157/71 92
12/13/23 07:05 12/13/23 07:36 12/13/23 07:05 12/13/23 07:36 12/13/23 10:57
Physical Exam
Constitutional: No Acute Distress
Pulmonary: Clear
Gastrointestinal: Soft, Non Tender and Non Distended
Extremities: Negative Edema
Neurological: AO x 3
Objective Data
Lab Data
Lab Results
12/13/23 06:42
12/13/23 06:42
Estimated Creat Clear 58 ml/min 12/13/23 06:42
Lactic Acid 1.2 mmol/L (0.7-2.0) 12/10/23 13:39
Lactic Acid Cancelled 12/10/23 13:39
Total Bilirubin 0.6 mg/dl (0.2-1.3) 12/11/23 05:36
AST 16 U/L (17-59) L 12/11/23 05:36
ALT 13 U/L (0-50) 12/11/23 05:36
Alkaline Phosphatase 93 U/L (38-126) 12/11/23 05:36
Most recent labs reviewed.
Micro Results:
12/11/23 23:36 Salmonella/Shigella Culture - Preliminary
Feces/Stool Culture in Progress
Campylobacter Culture - Preliminary
Culture in Progress
Shiga Toxin Test - Pending
Stool Leukocytes - Final
12/10/23 13:47 Blood Culture - Preliminary
Blood/Venous No Growth in 48 hours- Final report to follow
12/10/23 13:39 Blood Culture - Preliminary
Blood/Venous No Growth in 48 hours- Final report to follow
12/11/23 23:36 C. difficile GDH Antigen & Toxins - Final
Feces/Stool C. difficile antigen positive, toxin negative.
Clostridium difficile present, but toxin not detected.
Patient may be a carrier, colonized with nontoxinogenic
strain or the level of toxin in sample is below detection
limits. This information should be used in conjunction with
the patient's clinical history.
12/10/23 13:39 Legionella Urinary Antigen - Final
Urine Negative for Legionella pneumophila Serogroup 1 antigen.
A negative result does not rule out the possiblity of
Legionella infection due to other serogroups or species of
Legionella. Clinical correlation is recommended.
Streptococcus pneumoniae Antigen (M - Final
Negative for Streptococcus pneumoniae antigen.
A negative result does not exclude infection with
Streptococcus pneumoniae. Clinical correlation is
recommended.
12/10/23 13:39 Urine Culture - Final
Urine
12/10/23 13:48 Influenza Types A & B (GISELLE) - Final
Nasal Swab Negative for Influenza A & B, NAAT
Negative results must be combined with clinical observations
and patient history.
Nucleic Acid Amplification test (NAAT)performed on the
[employer] platform.
12/10/23 CXR: Airspace opacity in the left midlung compatible with pneumonia.�
[2023-12-13 15:10] VITALS: BP 113/62
--- NOTE | 2023-12-13 15:48 | CM ---
Patient seen at bedside with . IMM completed and signed form placed on chart. Patient declined VN supports at this time. CM will continue to follow for discharge planning needs.
Plan; home with no needs
[2023-12-13] MEDS: REFRESH EYE DROPS (PF) 1 DROPS BOTH EYES (21:10)
[2023-12-13] MEDS: LIPITOR 40 MG PO (21:11)
[2023-12-13] MEDS: ASPIR LOW (ENTERIC COATED) 81 MG PO (21:12)
[2023-12-13] MEDS: NEURONTIN 200 MG PO (21:12)
[2023-12-13] MEDS: FLOMAX 0.800000000000000044 MG PO (21:12)
[2023-12-13] MEDS: COLACE PO (21:12)
[2023-12-13] MEDS: ZETIA 10 MG PO (21:12)
[2023-12-13] MEDS: STERILE WATER FOR INJECTION 10 ML IV (23:04)
[2023-12-13] MEDS: ROCEPHIN 1000 MG IV (23:04)
[2023-12-13] MEDS: XANAX 1 MG PO (23:05)
[2023-12-13 23:45] VITALS: BP 145/64
[2023-12-14] MEDS: FIRVANQ 125 MG PO ×3 (05:10→17:29)
[2023-12-14 05:38] LABS: Hematocrit 30.4 % (39.0-52.0); Hemoglobin 10.2 g/dL (13.0-18.0); Mean Corp Hgb Conc. 33.6 g/dL (33.0-37.0); Mean Corpuscular Volume 95.3 fL (80.0-94.0); Mean Platelet Volume 11.3 fL (7.4-10.4); Platelet Count 219 10^3/uL (130-400); Red Blood Cell Count 3.19 10^6/uL (4.70-6.10); Red Cell Dist. Width 15.6 % (11.5-14.5); White Blood Cell Count 8.1 10^3/uL (4.8-10.8)
[2023-12-14 05:52] LABS: Blood Urea Nitrogen 23 mg/dl (9-20); Calcium 9.7 mg/dl (8.4-10.2); Carbon Dioxide 18 mmol/L (22-30); Chloride 119 mmol/L (98-107); Estimated Creatinine Clearance 53 ml/min; Glucose 90 mg/dl (70-99); Magnesium 1.8 mg/dl (1.6-2.3); Potassium 3.9 mmol/L (3.5-5.1); Sodium 142 mmol/L (135-145); eGFR > 60.00
[2023-12-14 07:39] VITALS: BP 128/59
[2023-12-14] MEDS: OCUVITE SOFTGEL 1 CAP PO (09:06)
[2023-12-14] MEDS: PROGRAF 2 MG PO (09:06)
[2023-12-14] MEDS: RANEXA EXTENDED RELEASE 500 MG PO (09:07)
[2023-12-14] MEDS: HEPARIN 5000 UNITS SC ×2 (09:07→16:27)
[2023-12-14] MEDS: WELLBUTRIN XL (24 hour extended release) 300 MG PO (09:07)
[2023-12-14] MEDS: CELLCEPT 250 MG PO (09:07)
[2023-12-14] MEDS: ZITHROMAX 500 MG PO (09:08)
[2023-12-14] MEDS: PLAVIX 75 MG PO (09:08)
[2023-12-14] MEDS: ZYLOPRIM 300 MG PO (09:08)
[2023-12-14] MEDS: DELTASONE 5 MG PO (09:08)
[2023-12-14] MEDS: PROTONIX 40 MG PO (09:09)
[2023-12-14] MEDS: VITAMIN D3 (cholecalciferol) 25 MCG PO (09:09)
[2023-12-14] MEDS: COLCHICINE 0.599999999999999978 MG PO (09:09)
--- NOTE | 2023-12-14 09:16 | W.PN.HOSP.TC ---
Addendum entered and electronically signed by Perez Jorge MD 12/15/23 20:21:
TME from infection resolved
Addendum entered and electronically signed by Perez Jorge MD 12/14/23 10:01:
Per ID pharmacist okay to give Rocephin at 5 pm.
Changed. Spoke to patient's significant other she stated that he has mild confusion every now and then. We discussed about getting cognitive evaluation as outpatient.
She will be here to pick him up around 6 PM therefore will finish antibiotics prior to that.
D/W ID-Okay for discharge today
Time spent 33 min
Original Note:
Today's Communication/Plan
-
? Discharge
Assessment / Plan
Assessment / Plan
68-year-old male with generalized weakness and mild confusion
Diarrhea better. Pt feels 'great'. No diarrhea
Wants to walk on his own.
Cardiovascular system S1-S2 appreciated
Chest clear to auscultation
Abdomen soft and nontender
No evidence of cellulitis
# Pneumonia in an immunocompromise patient
ceftriaxone Zithromax
Blood cultures neg
Fluids none COVID-negative
White count better
ID evaluation
#C diff Ag positive- PO Vanco while on AB
# Recent fall
CT head-no acute changes
# Mild anemia hemoglobin
# Hypomagnesemia-replace
# Hypokalemia - Replace
# History of kidney transplant 1996 which failed and got another transplant in 2007
Continue Prograf 2 mg twice daily-recently morning dose decreased
Continue CellCept 250 twice daily
Prednisone 5 mg daily
Prograf level with in range
# Hypertension-valsartan 80 mg p.o. twice daily, metoprolol 50 twice daily
# Hyperlipidemia/atherosclerosis-Zetia, statin
# Coronary artery disease with history of stent
History of CABG
History of non-STEMI
Cath 06/2023-severe calcific multivessel CAD with patent THIBODEAUX-LAD and patent LRA�RPDA bypass grafts�.Unsuccessful attempted PCI of distal OM 2 branch due to inability to pass balloon catheter to the lesion site.
Medical therapy recommended
Continue Ranexa 500 twice daily, metoprolol 50 twice daily, valsartan 80 mg p.o. twice daily, Imdur 60 twice daily, Plavix, atorvastatin, aspirin
EKG-anterior ischemia the inversions in anterior inferior leads
Negative Trop
# Aortic regurgitation
# Peripheral artery disease, Antiplatelets and Statin
# History of Castillo's palsy
# Chronic back pain/arthritis/sciatica/Neuropathy
Gabapentin
Opiate dependent for pain
# History of TIA-on Aspirin, Plavix, Statin
# History of testicular cancer with history of left orchiectomy
# Diverticulosis/History of IBS/History of hiatal hernia/History of bowel obstruction
# Anxiety/depression-continue Xanax 1 mg daily as needed 90 mg p.o. at bedtime
Continue Wellbutrin 300 mg p.o. daily
# Gout-continue colchicine, allopurinol
# History of rheumatoid arthritis
# History of parathyroidectomy
# History of alcohol abuse sober since 2008
# Hypoalbuminemia
# Ex-smoker
# DVT prophylaxis subcutaneous heparin
# Full code
Discussed with nursing
Anticipated Discharge: Today
Subjective/Interval History
-
Date of Service: December 14, 2023
Objective Data
-
Labs:
Laboratory Results
12/14/23
05:06
WBC 8.1
Hgb 10.2 L
Hct 30.4 L
Plt Count 219
Sodium 142
Potassium 3.9
Chloride 119 H
Carbon Dioxide 18 L
BUN 23 H
Creatinine 1.1
Glucose 90
Calcium 9.7
Vital Signs:
Vital Signs
Temp Pulse Resp BP Pulse Ox
98.0 F 54 14 128/59 94
12/14/23 07:39 12/14/23 07:39 12/14/23 07:39 12/14/23 07:39 12/14/23 07:39
I&O
12/13/23 12/14/23 12/15/23
06:59 06:59 06:59
Intake Total 600 / 600 1320 / 1320
Balance 600 / 600 1320 / 1320
[2023-12-14] MEDS: TOPROL XL 50 MG PO (09:17)
[2023-12-14] MEDS: DIOVAN 80 MG PO (09:17)
[2023-12-14] MEDS: IMDUR (EXTENDED RELEASE) 60 MG PO (09:17)
[2023-12-14 12:25] VITALS: BP 135/64; PULSE 67; O2SAT 94
--- NOTE | 2023-12-14 12:34 | W.PN.ID1 ---
Date of Service
Date of Service: December 14, 2023
Today's Communication
Can dc home today to complete po Vancomycin.
See below.
Assessment / Plan
# Probable C. diff diarrhea
-Multiple BM's resolving
-C. diff Ag+, toxin negative
- Continue Vancomycin 125mg po q6 x 10d through 12/22/23
# CAP
- Urine legionella and pneumococcal Ag negative
-Blood cx's - negative to date
- ceftriaxone and azithromycin (d5 of 5)
# fever resolved.
# leukocytosis: improving
# Multiple abx allergies/intolerances
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
#Additional Past Medical History:
HTN
Dyslipidemia
CAD s/p CABG, stents
Renal transplant x 2 1996, 2007
CVA
Left Castillo's palsy
PVD
Gout
BPH
Chief Complaint
-: Pneumonia
Subjective / Review of Systems
No diarrhea. Feels good.
Vital Signs / Physical Exam
Vital Signs
Vital Signs
Temp Pulse Resp BP Pulse Ox
98.0 F 54 14 128/59 94
12/14/23 07:39 12/14/23 07:39 12/14/23 07:39 12/14/23 09:17 12/14/23 07:39
Physical Exam
Constitutional: No Acute Distress and Comfortable
Pulmonary: Clear
Gastrointestinal: Soft, Non Tender and Non Distended
Neurological: AO x 3
Objective Data
Lab Data
Lab Results
12/14/23 05:06
12/14/23 05:06
Estimated Creat Clear 53 ml/min 12/14/23 05:06
Lactic Acid 1.2 mmol/L (0.7-2.0) 12/10/23 13:39
Lactic Acid Cancelled 12/10/23 13:39
Total Bilirubin 0.6 mg/dl (0.2-1.3) 12/11/23 05:36
AST 16 U/L (17-59) L 12/11/23 05:36
ALT 13 U/L (0-50) 12/11/23 05:36
Alkaline Phosphatase 93 U/L (38-126) 12/11/23 05:36
Most recent labs reviewed.
Micro Results:
12/11/23 23:36 Salmonella/Shigella Culture - Preliminary
Feces/Stool Culture in Progress
Campylobacter Culture - Preliminary
No Campylobacter species isolated.
Shiga Toxin Test - Final
No E. coli Shiga Toxin 1 or 2 detected.
Stool Leukocytes - Final
12/10/23 13:47 Blood Culture - Preliminary
Blood/Venous No Growth in 72 hours- Final report to follow
12/10/23 13:39 Blood Culture - Preliminary
Blood/Venous No Growth in 72 hours- Final report to follow
12/11/23 23:36 C. difficile GDH Antigen & Toxins - Final
Feces/Stool C. difficile antigen positive, toxin negative.
Clostridium difficile present, but toxin not detected.
Patient may be a carrier, colonized with nontoxinogenic
strain or the level of toxin in sample is below detection
limits. This information should be used in conjunction with
the patient's clinical history.
12/10/23 13:39 Legionella Urinary Antigen - Final
Urine Negative for Legionella pneumophila Serogroup 1 antigen.
A negative result does not rule out the possiblity of
Legionella infection due to other serogroups or species of
Legionella. Clinical correlation is recommended.
Streptococcus pneumoniae Antigen (M - Final
Negative for Streptococcus pneumoniae antigen.
A negative result does not exclude infection with
Streptococcus pneumoniae. Clinical correlation is
recommended.
12/10/23 13:39 Urine Culture - Final
Urine
12/10/23 13:48 Influenza Types A & B (GISELLE) - Final
Nasal Swab Negative for Influenza A & B, NAAT
Negative results must be combined with clinical observations
and patient history.
Nucleic Acid Amplification test (NAAT)performed on the
[employer] platform.
12/10/23 CXR: Airspace opacity in the left midlung compatible with pneumonia.�
Care Review
Plan reviewed with: Physician (Dr. Jorge.)
--- NOTE | 2023-12-14 12:42 | PTOTSP ---
pt currently requires supervision to no assistance to complete simple ADLs, functional transfers, ambulation. no acute OT needs identified at this time, will sign off.
[2023-12-14 15:30] VITALS: BP 146/73
--- NOTE | 2023-12-14 15:34 | W.DS.TRANS ---
Addendum entered and electronically signed by Perez Jorge MD 12/14/23 15:37:
Dictation- [id number]
Original Note:
DC Summary - Opal Miner
-
Discharge Instructions:
Discharge Diagnosis/Procedures Pneumonia,C diff antigen Positive, fall, anemia,
low magnesium and potassium, history of kidney
transplant, hypertension, high cholesterol,
coronary artery disease, peripheral artery
disease, Castillo's palsy, neuropathy, history of
TIA, anxiety depression, gout
Diet 2 Gram Sodium,Low Cholesterol
Activity As tolerated
Driving Restrictions As prior to admission
Others Tests Chest x-ray 4 to 6 weeks to ensure clearing of
pneumonia.
Other Services VN
Instructions:
Stand-Alone Forms:
Changes to Home Medications: Yes
Discharge Medications:
DC Medications w/original date entered in [employer]
colchicine 0.6 mg tablet 0.6 mg PO DAILY Gout 04/27/19
allopurinol 300 mg tablet 300 mg PO DAILY Gout 10/03/19
cholecalciferol (vitamin D3) 25 mcg (1,000 unit) tablet 1,000 units PO DAILY Supplement 10/03/19
prednisone 5 mg tablet 5 mg PO DAILY Transplant 10/03/19
ranolazine 500 mg tablet,extended release,12 hr 500 mg PO BID Heart Failure 10/03/19
tamsulosin 0.4 mg capsule 0.8 mg PO HS Urinary issue 10/03/19
ezetimibe 10 mg tablet 10 mg PO HS High cholesterol 01/26/20
atorvastatin 40 mg tablet 40 mg PO HS High cholesterol 10/24/20
methenamine hippurate 1 gram tablet (Hiprex) 1 g PO BID 04/25/22
nitroglycerin 0.4 mg sublingual tablet 0.4 mg sublingual [id number] PRN chest pain 04/25/22
alprazolam 1 mg tablet 1 mg PO DAILY PRN anxiety 12/10/23
oxycodone-acetaminophen 10 mg-325 mg tablet 1 tab PO Q4H PRN moderate to severe pain 12/10/23
aspirin 81 mg tablet,delayed release 81 mg PO HS Blood clot prevention/tx #0 tabs 12/14/23
bupropion HCl 300 mg 24 hr tablet, extended release (Wellbutrin XL) 300 mg PO DAILY Mental Health/Anxiety #0 tabs 12/14/23
clopidogrel 75 mg tablet 75 mg PO DAILY Blood clot prevention/tx #90 tabs 12/14/23
docusate sodium 100 mg capsule 100 mg PO HS Constipation #0 caps 12/14/23
gabapentin 100 mg capsule 200 mg PO HS Neurological Condition #0 caps 12/14/23
isosorbide mononitrate 60 mg tablet,extended release 24 hr 60 mg PO BID Heart disease/condition #0 tabs 12/14/23
metoprolol succinate 50 mg tablet,extended release 24 hr 50 mg PO BID Heart disease/condition #0 tabs 12/14/23
mycophenolate mofetil 250 mg capsule (CellCept) 250 mg PO BID Transplant #0 caps 12/14/23
pantoprazole 40 mg tablet,delayed release 40 mg PO DAILY Gastrointestinal issue #90 tabs 12/14/23
peg 400-propylene glycol (PF) 0.4 %-0.3 % eye drops in a dropperette (Systane (PF)) 1 drp BOTH EYES HS Eye condition #0 ea 12/14/23
tacrolimus 1 mg capsule, immediate-release 2 mg PO Q12 Transplant #0 caps 12/14/23
valsartan 80 mg tablet 80 mg PO BID Blood pressure #0 tabs 12/14/23
vancomycin 125 mg capsule 125 mg PO QID cdiff #40 caps 12/14/23
vitamins A,C,D-xbjn-cjbwzz 4,296 mcg-226 mg-90 mg capsule (PreserVision AREDS) 1 cap PO BID Supplement #0 caps 12/14/23
Home Medication Changes
new
vancomycin 125 mg capsule 125 mg PO QID cdiff #40 caps 12/14/23
Pending Results: No
[2023-12-14] MEDS: ROCEPHIN 1000 MG IV (16:27)
[2023-12-14] MEDS: STERILE WATER FOR INJECTION 10 ML IV (16:28)
--- NOTE | 2023-12-14 16:32 | CM ---
Patient has been medically cleared for discharge to home with no additional skilled services. will transport home
--- NOTE | 2023-12-15 09:22 | PN.CDI ---
Addendum entered and electronically signed by Perez Jorge MD 12/15/23 20:25:
no change
Original Note:
CDI
- -
CDI:
Physician Documentation Request
Admit Date: 12/10/23 17:35
Dear Doctor Ania,
Please review the following and provide your response in the progress notes.
Clinical Indicators:
ER, 12/09
#Pneumonia, Altered mental status, Fever
12/09 Initial VS:101.1 67 19 135/59 93%
H+P, 12/09
#malaise 2/2 L pneumonia with unspecified organism in immunocompromized patient
Laboratory Tests
12/10/23 12/11/23 12/12/23
13:40 05:36 07:22
WBC 17.1 H 12.7 H 12.0 H
12/13/23 12/14/23
06:42 05:06
WBC 11.1 H 8.1
Please clarify which of the following most accurately describes the status of the patient's infection, POA:
Sepsis, POA
Localized Infection Only, Without Systemic Illness
- indicate the site/source, such as UTI, pneumonia etc.
Other
Sepsis
- Systemic manifestations of infection, with 2 or more SIRS criteria which include:
- Fever >100.4 degrees F or hypothermia < 96.8 degrees F
- Leukocytosis - WBC > 12,000 or leukopenia - WBC < 4,000 or > 10% bands
- Tachycardia > 90 beats per minute
- Tachypnea - RR > 20 breaths per minute or PaCO2 , 32mmHg
Source: Merck Manual 2013
- Indicate the known or suspected underlying infection, such as UTI, pneumonia or cellulitis
Use of terms such as suspected, likely, concern for, or probable (associated with a specific diagnosis that is being evaluated, monitored, or treated as if it exists) are acceptable and can be coded in the inpatient setting, when documented at the
time of discharge.
Thank you,
Tracy Babcock RN BSN CCDS
CDI Specialist
please contact via tiger text
Please use your independent medical judgment in providing your response.
--- NOTE | 2023-12-15 09:31 | PN.CDI ---
Addendum entered and electronically signed by Perez Jorge MD 12/15/23 20:22:
my note says opiate dependend . I done understand what other clarification is needed.
Original Note:
CDI
- -
CDI:
Physician Documentation Request
Admit Date: 12/10/23 17:35
Dear Doctor Ania,
Please review the following and provide your response in the progress notes.
Clinical Indicators:
ED, 12/09
#...past medical history including CAD ....chronic pain on chronic narcotics,
#...evaluation by reports patient was very confused when he woke up this morning. T
#He is on chronic opiates for chronic mvfm-gf-rads arthritis.
#He does take 1 tablet every 4 hours of oxycodone/acetaminophen.
#He in addition is on Xanax 1 mg 2 tablets at bedtime.
Home Meds:
oxycodone-acetaminophen 10 mg-325 mg tablet 1 tab PO Q4H PRN moderate to severe pain 12/10/23
Based on the above and you clinical assessment, please provide further specificity as outlined below:
Opioid Dependence, without abuse
Other
Unable to determine
Use of terms such as suspected, likely, concern for, or probable (associated with a specific diagnosis that is being evaluated, monitored, or treated as if it exists) are acceptable and can be coded in the inpatient setting, when documented at the
time of discharge.
Thank you,
Tracy Babcock RN BSN CCDS
CDI Specialist
please contact via tiger text
Please use your independent medical judgment in providing your response.
--- NOTE | 2023-12-15 09:40 | PN.CDI ---
CDI
- -
CDI:
Physician Documentation Request
Admit Date: 12/10/23 17:35
Dear Doctor Ania,
Please review the following and provide your response in the progress notes.
Clinical Indicators:
ED, 12/09
#...past medical history including CAD with multiple stents, renal transplants x 2,
#...chronic Castillo's palsy, chronic pain on chronic narcotics,
#...reflux hypertension heart murmur hyperlipidemia ID
#presents to the ER for evaluation by reports patient was very confused when he woke up this morning.
#They were not aware that he had a fever until patient got to the ER.
# reports that patient has been' off' the past several weeks to months.
#They have adjusted some of his medications.
#He is on chronic opiates for chronic vsnt-mp-stdq arthritis.
#He does take 1 tablet every 4 hours of oxycodone/acetaminophen.
#He in addition is on Xanax 1 mg 2 tablets at bedtime.
#Patient is on antirejection medication
#Pneumonia, Altered mental status, Fever
Discharge Summary, 12/13
#...admitted because of confusion.
#...found to have pneumonia.
#...immunocompromised state.
#...history of renal transplant.
#...started on Zithromax and ceftriaxone, which he finished a five-day course today.
#He also had diarrhea,and he was C diff antigen positive, toxin negative.
#...vancomycin was started, and the plan is to continue with the treatment
#...for 10 more days after discharge given his immunocompromised state.
#Patient had a lot of confusion on admission, which is slowly resolving.
#DISCHARGE INSTRUCTIONS:
#...Discharge Diagnosis/Procedures Pneumonia,C diff antigen Positive, fall, anemia,
Based on the above and your clinical assessment, please clarify in the Progress Note/Discharge Summary is the most likely etiology of the confusion/altered mental status.
Multifactorial, metabolic/septic encephalopathy, please specify,(PNA, C Diff antigen +, immunocompromised, multiple medications/opioids/benzodiazepine, etc.)
Altered mental status
Other
Use of terms such as suspected, likely, concern for, or probable (associated with a specific diagnosis that is being evaluated, monitored, or treated as if it exists) are acceptable and can be coded in the inpatient setting, when documented at the
time of discharge.
Thank you,
Tracy Babcock RN BSN CCDS
CDI Specialist
please contact via tiger text
Please use your independent medical judgment in providing your response.
== END 2023-12-14 18:04 | disposition home or self-care (01) | DRG 193 ==
LOC: 2 NORTH 17:35
PROVIDERS: Emergency Medicine; ADMITTING PHYSICIAN Internal Medicine; ATTENDING PHYSICIAN Hospitalist; CONSULT PHYSICIAN Internal Medicine Infectious Disease; EMERGENCY PHYSICIAN Student in an Organized Health Care Education/Training Program; FAMILY PHYSICIAN Family Medicine
DX: J18.9 Pneumonia, unspecified organism (principal); G92.8 Other toxic encephalopathy; F11.20 Opioid dependence, uncomplicated; Z94.0 Kidney transplant status; D84.821 Immunodeficiency due to drugs; A04.72 Enterocolitis due to Clostridium difficile, not specified as recurrent; D53.9 Nutritional anemia, unspecified; E83.42 Hypomagnesemia; I10 Essential (primary) hypertension; E78.00 Pure hypercholesterolemia, unspecified; I25.10 Atherosclerotic heart disease of native coronary artery without angina pectoris; I73.9 Peripheral vascular disease, unspecified; F41.9 Anxiety disorder, unspecified; M10.9 Gout, unspecified; M06.9 Rheumatoid arthritis, unspecified; F32.A Depression, unspecified; I25.2 Old myocardial infarction; Z95.1 Presence of aortocoronary bypass graft; Z87.891 Personal history of nicotine dependence
CPT/HCPCS: 70450; 71046; 80048; 80053; 80197; 81003; 81015; 82248; 82607; 82746; 83605; 83735; 84484; 85025; 85027; 87040; 87045; 87046; 87077; 87086; 87324; 87427; 87449; 87502; 87811; 87899; 89055; 93005; 96361; 96374; 97162; 97166; 99285

== ENCOUNTER 2023-12-21 11:14 | Emergency (ER) | payer MEDICARE, OTHER, SELFPAY ==
[2023-12-21] VITALS (10 sets, daily range): BP systolic 123–174; BP diastolic 64–113; PULSE 72; O2SAT 95; BMI 25.1
--- NOTE | 2023-12-21 11:35 | EDRN ---
Dr. Lopez in room w/ pt at this time.
--- NOTE | 2023-12-21 11:50 | ED.GENMED ---
History of Present Illness
General
Chief Complaint: Change in Mental Status
Source: patient
Time Seen by Provider: 12/21/23 11:29
Travel History
Have you had any contact with someone who has COVID-19?: No
Do you have any symptoms of coronavirus? Fever > 100 degrees, chills, cough, shortness of breath, sore throat, loss of taste or smell, muscle aches, or headache?: No
History of Present Illness
History of Present Illness:
This patient is a 68-year-old male presents to the emergency department with his long-term partner. He does not feel that he needs to be here and is upset that she encouraged him to come here. She states that ever since patient was discharged on
December 13, his confusion that developed while he was in the hospital has not resolved. She describes episodes where he does not seem to know what he is doing. For example, she notices that he took his iPhone lead producer and incorrectly tried to plug it
into the wall instead of into the phone. She says that he has been very fatigued, sleepy, with very poor appetite. She denies noticing patient is actually confused to person place or time. The patient states that he feels 'fine'. He does
acknowledge that his appetite has not yet returned fully, but he denies other complaints. He was recently admitted for pneumonia and he denies cough, dyspnea, chest pain or pressure, fever, chills, headache, dizziness, numbness, tingling, focal
weakness, nausea, vomiting, or other complaints. When asked about episodes of confusion in the past, his partner states that he he did see a neurologist last year, and his Prograf dosing was modified which resolved his confusion. Otherwise he has
not had confusion recently
Past History
Past History
ED Past Medical History: CAD, Cancer (Testicular CA with left testicle removed), CVA, HTN, Hypercholesterolemia, [place] and Other (kidney transplant)
ED Past Surgical History: Cardiac (Stents X3, CABG) and Other (Kidney transplant, Hernia repair X7, Parathyroidectomy, Bladder surgery)
Social History
Tobacco: Former smoker
Alcohol: None
Drug: None
Personal:
Living: other (Significant other)
Phy Exam
Physical Exam
Physical Exam:
GENERAL: Alert , in no apparent distress
EYE: pupils equal and reactive, conjunctive a pink, EOMI
NECK: Supple, no significant adenopathy.
ENT: o/p clr, mmm.
CARDIAC: Regular rate and rhythm .
LUNGS: Clear breath sounds bilaterally, no acute respiratory distress, no wheezes/rales/rhonchi
ABDOMEN: Soft, without focal tenderness, no r/g, no cvat
NEUROLOGICAL: Alert and oriented, left-sided 7th nerve palsy noted which is baseline as per patient, sbtdei-gu-yzbk normal, motor 5 out of 5, sensory intact to light touch. Patient has questionably slightly slurred speech which patient and
significant other status baseline. No imbalance with standing or walking.
SKIN: Warm and dry, skin intact.
MUSCULOSKELETAL: No edema, well perfused.
PSYCH: Normal and appropriate interaction.
Course
Orders/Labs/Results
Orders:
Orders
12/21/23 12:19
Complete Blood Count/With Diff Urgent
Comprehensive Metabolic Panel Urgent
Tacrolimus (Prograft - [id number]) [S] Urgent
Comment: ADD ON
Troponin I Urgent
12/21/23 13:00
Add On- LAB Urgent
Tests Added?: tacrolimus
12/21/23 13:44
Urinalysis Reflex To Culture Urgent
Date Specimen was Collected: 12/21/23
Time Specimen was Collected: 13:42
Urine Microscopic Reflex Cult Urgent
12/21/23 15:00
CT Head W/o Iv Contrast Urgent
Comment:
Reason For Exam: confusion
12/21/23 15:27
Case Management Consult ONCE
Case Management Consult: Other
PT Consult [Pt Eval And Treat] Urgent
Activity Level: Out of Bed-Early Mobility
Abnormal Lab Results
12/21/23 12/21/23
12:19 13:44
RBC 3.35 L 10^6/uL
(4.70-6.10)
Hgb 10.8 L g/dL
(13.0-18.0)
Hct 33.1 L %
(39.0-52.0)
MCV 98.8 H fL
(80.0-94.0)
MCH 32.2 H pg
(27.0-31.0)
MCHC 32.6 L g/dL
(33.0-37.0)
RDW 15.9 H %
(11.5-14.5)
MPV 10.9 H fL
(7.4-10.4)
Abs Immat Gran (auto) 0.2 H 10^3/uL
(0-0.05)
Absolute Neuts (auto) 7.6 H 10^3/uL
(1.4-6.5)
Immature Gran % 2.2 H %
(0-0.5)
Lymphocytes % 14.0 L %
(20.5-51.1)
Chloride 113 H mmol/L
(98-107)
Carbon Dioxide 21 L mmol/L
(22-30)
BUN 22 H mg/dl
(9-20)
Glucose 109 H mg/dl
(70-99)
Calcium 10.3 H mg/dl
(8.4-10.2)
Total Protein 6.1 L g/dl
(6.3-8.2)
Urine Bilirubin 1+ A
(Negative)
Leukocyte Esterase Rfl Trace A
(Negative)
Urine Bacteria (Reflex) Few A
(Negative)
Urine Albumin (Reflex) 1+ A
(Neg - Trace)
12/21/23 12:19
12/21/23 12:19
Vital Signs
Initial and Last Documented VS:
Initial Vital Signs
Temp Pulse Resp BP Pulse Ox
98.0 F 63 18 123/72 96
12/21/23 11:17 12/21/23 11:17 12/21/23 11:17 12/21/23 11:17 12/21/23 11:17
Last Documented Vital Signs
Temp Pulse Resp BP Pulse Ox
98.0 F 64 24 144/113 96
12/21/23 11:17 12/21/23 16:30 12/21/23 16:30 12/21/23 16:03 12/21/23 15:15
*Critical Care Note
Total Time (30-74mins, 75-104mins- exclusive of procedures): Not Applicable
Update Note
Update Note:
Patient presents to the Emergency Department with ___mental status change reportedly
Number and Complexity of Problems Addressed at the Encounter
� Chronic conditions affecting care:
� Acute Exacerbation and/or Progression of Chronic Illness:
� Differential Diagnosis includes: But not limited to electrolyte disorder, infection, CVA, etc.
Amount and/or Complexity of Data to be Reviewed and Analyzed
� I performed an independent evaluation of and my interpretation is:
EKG:
CT:ead by kiana spaulding
Xrays:
Laboratory Studies:no new abnl, baseline anemia, prograft level pending
Other:
� Review of other/old records reveals: Discharge summary reviewed from December 13, patient noted to be confused at that time but it was reportedly 'slowly resolving' upon discharge.
� Clinical information was obtained by an independent historian: Significant who is at bedside
� Prescriptions/Medications Considered but not given:
� Further testing considered but not performed:
Risk of Complications and/or Morbidity or Mortality of Patient Management
� Social determinants of health affecting care:
� Discussion with other providers (PCP, Hospitalists, Consultants, etc):
� Escalation of care including admission/observation vs risk of discharge considered: Although pt s.o. describes events of confusion, he is neuro intact here, no specific etiology noteda t this time. d/w pt and s.o. import ff/u
with neuro for futher eval, and reasons to rted. He is in PT once week, requesitn gmore frequent, cm consult ordered.....PTevaluated pt and agree with recommendation to continue PT as outpt, pt will do with pcp.
He remained aao times three in ED.
ED Attending Note
-
Portions of this chart may have been created with voice recognition software.� Occasional wrong word or��sound alike� substitutions may have occurred due to the inherent limitations of voice recognition software.
Discharge Plan
Departure
Patient Disposition: Home (Routine Discharge)
Date of Disposition: 12/21/23
Time of Disposition: 15:29
Patient with high blood pressure during this ER visit?: Yes
Condition: Good
Discharge Problem:
(reported) confusion
Instructions: BLOOD PRESSURE
Prescriptions:
No Action
colchicine 0.6 MG tablet
0.6 mg PO DAILY
prednisone 5 MG tablet
5 mg PO DAILY
tamsulosin 0.4 MG capsule
0.8 mg PO HS
allopurinol 300 MG tablet
300 mg PO DAILY
ranolazine 500 MG tablet extended release 12 hr
500 mg PO BID
cholecalciferol (vitamin D3) 1,000 UNITS tablet
1,000 units PO DAILY
ezetimibe 10 MG tablet
10 mg PO HS
atorvastatin 40 MG tablet
40 mg PO HS
methenamine hippurate [Hiprex] 1 gram Tablet
1 g PO BID
nitroglycerin 0.4 mg Tablet, Sublingual
0.4 mg SUBLINGUAL [id number] PRN (Reason: chest pain)
alprazolam 1 mg tablet
1 mg PO HS
Patient Comments:
12/10/2023: last filled 11/30/23, 90 tabs for 30 days from [facility]
tacrolimus 1 mg Capsule
2 mg PO Q12 Qty: 0 0RF
vancomycin 125 mg capsule
125 mg PO QID Qty: 40 0RF
metoprolol succinate 50 mg tablet extended release 24 hr
50 mg PO BID Qty: 0 0RF
mycophenolate mofetil [CellCept] 250 MG capsule
250 mg PO BID Qty: 0 0RF
valsartan 80 mg tablet
80 mg PO BID Qty: 0 0RF
clopidogrel 75 MG tablet
75 mg PO DAILY Qty: 90 3RF
aspirin 81 MG tablet,delayed release (DR/EC)
81 mg PO HS Qty: 0 0RF
isosorbide mononitrate 60 mg tablet extended release 24 hr
60 mg PO BID Qty: 0 0RF
pantoprazole 40 MG tablet,delayed release (DR/EC)
40 mg PO DAILY Qty: 90 3RF
docusate sodium 100 mg Capsule
100 mg PO HS Qty: 0 0RF
gabapentin 100 mg Capsule
200 mg PO HS Qty: 0 0RF
bupropion HCl [Wellbutrin XL] 300 mg Tablet Extended Release 24 Hr
300 mg PO DAILY Qty: 0 0RF
Systane (PF) 0.4-0.3 % Dropperette
1 drp BOTH EYES HS Qty: 0 0RF
PreserVision AREDS 1 CAP capsule
1 cap PO BID Qty: 0 0RF
Referrals:
Mode Rubio MD [Family Provider] -
Activity Restrictions/Additional Instructions:
PLEASE SEE NEUROLOGY IN CLOSE FOLLOW UP. IF YOU DEVELOP FEVER, VOMITING, DIZZINESS, CHEST PAIN, TROUBLE BREATHING, PERSISTENT/RECURRENT CONFUSION OR OTHER WORRISOME SIGNS, GO TO THE ER IMMEDIATELY!
Interventions
Interventions:
*Risk Screen - Suicide Last Done: 12/21/23 11:17
*General Assessment Last Done: 12/21/23 11:17
*Neglect/Abuse Screening Last Done: 12/21/23 11:17
ED- Fall Risk Assessment Last Done: 12/21/23 11:59
*ED COVID-19 Vaccine History Last Done: 12/21/23 11:59
*Nursing Disposition Last Done: 12/21/23 16:55
ED- Pulmonary Assessment Last Done: 12/21/23 11:59
ED-Psychological Assessment Last Done: 12/21/23 11:59
ED- Neurological Assessment Last Done: 12/21/23 11:59
ED- Cardiac Assessment Last Done: 12/21/23 11:59
ED Swallowing Screen Last Done: 12/21/23 12:05
Discharge Date and Time
Discharge Date/Time: 12/21/23 16:56
[2023-12-21 12:30] LABS: % Basophils 0.5 % (0-2); % Eosinophils 3.2 % (0-6); % Immature Granulocytes 2.2 % (0-0.5); % Monocytes 5.5 % (1.7-9.3); % Neutrophils 74.6 % (42.2-75.2); Absolute Basophils 0.1 10^3/uL (0-0.2); Absolute Eosinophils 0.3 10^3/uL (0-0.7); Absolute Immature Granulocytes 0.2 10^3/uL (0-0.05); Absolute Lymphocytes 1.4 10^3/uL (1.2-3.4); Absolute Monocytes 0.6 10^3/uL (0.1-0.6); Absolute Neutrophils 7.6 10^3/uL (1.4-6.5); Hematocrit 33.1 % (39.0-52.0); Hemoglobin 10.8 g/dL (13.0-18.0); Mean Corp Hgb Conc. 32.6 g/dL (33.0-37.0); Mean Corpuscular Hgb 32.2 pg (27.0-31.0); Mean Corpuscular Volume 98.8 fL (80.0-94.0); Mean Platelet Volume 10.9 fL (7.4-10.4); Nucleated Red Blood Cells % 0 % (-); Platelet Count 254 10^3/uL (130-400); Red Blood Cell Count 3.35 10^6/uL (4.70-6.10); Red Cell Dist. Width 15.9 % (11.5-14.5); White Blood Cell Count 10.2 10^3/uL (4.8-10.8)
--- NOTE | 2023-12-21 12:32 | EDRN ---
Pt informed urine spec needed at this time.
--- NOTE | 2023-12-21 12:40 | EDRN ---
Pt's partner came out and said pt needs help to void in urinal. This RN said she would be in. Pt upon leaving room just a couple of minutes prior said he could not void at this time. On return to room just now. Pt awoke from nap and said he cannot
void at this time. At present Shraddha roa is in room doing med rec.
[2023-12-21 12:43] LABS: ALT (SGPT) 16 U/L (0-50); AST (SGOT) 17 U/L (17-59); Albumin 3.7 g/dl (3.5-5.0); Alkaline Phosphatase 93 U/L (38-126); Blood Urea Nitrogen 22 mg/dl (9-20); Calcium 10.3 mg/dl (8.4-10.2); Carbon Dioxide 21 mmol/L (22-30); Chloride 113 mmol/L (98-107); Estimated Creatinine Clearance 49 ml/min; Glucose 109 mg/dl (70-99); Potassium 3.9 mmol/L (3.5-5.1); Sodium 138 mmol/L (135-145); Total Bilirubin 0.6 mg/dl (0.2-1.3); Total Protein 6.1 g/dl (6.3-8.2); eGFR > 60.00
[2023-12-21 12:54] LABS: Troponin I < 0.012 ng/ml
--- NOTE | 2023-12-21 13:02 | EDRN ---
CT for PE study cancelled.
[2023-12-21 14:24] LABS: Urine Albumin 1+ (Neg - Trace); Urine Bilirubin 1+ (Negative); Urine Character Clear (Clear); Urine Color Yellow; Urine Glucose Negative (Negative); Urine Ketone Negative (Negative); Urine Leukocyte Trace (Negative); Urine Nitrite Negative (Negative); Urine Occult Blood Negative (Negative); Urine Urobilinogen 1+ (Neg - 1+)
[2023-12-21 14:36] LABS: Urine Bacteria Few (Negative); Urine Red Blood Cell 0-2 /HPF (0-2)
--- NOTE | 2023-12-21 15:11 | EDRN ---
Pt OOB to commode on return from CT and had a BM at this time, small unformed brown.
--- NOTE | 2023-12-21 15:20 | EDRN ---
Pt requesting to eat at this time.
--- NOTE | 2023-12-21 15:28 | EDRN ---
Dr. Lopez said okay for pt to have turkey sandwich. Dr. Lopez was in to see pt. Pt was just administered a turkey sandwich.
--- NOTE | 2023-12-21 16:08 | EDRN ---
Physical Therapy in room w/ pt at this time.
--- NOTE | 2023-12-21 16:35 | EDRN ---
CM spoke to both pt and his terminal carman partner in detail at this time.
--- NOTE | 2023-12-21 16:37 | EDRN ---
Dr. Lopez was informed that PT was in to see pt. Pt ambulated well with walker in HW w/ PT. Parent and skilled nursing partner requested reinstitution of PT at home, needing a prescription. senior care partner stated can get script from his PCP. THis RN
attempted to cancel CM consult and CM called me and is now speaking w/ pt at this time.
--- NOTE | 2023-12-21 16:43 | CM ---
Patient with Dx confusion. Head CT done. PT Eval; No skilled PT needed.
Spoke with patient and his SO Andrey;
the patient resides with his SO in a one story house with ramp at entrance.
He has been independent in ADLs and ambulation without using any assistive devices.
The patient had recently been going to [facility], however he is not going there currently.
The patient fell on the day of his last admission on 12/10/23.
DME: RW, najma, jesse gtz, w/c
PCP - Mode Rubio
[facility]
Patient was instructed by Dr Leslie Lopez to request a script for outpatient PT from the PCP, and Andrey is aware.
Andrey works from home and feels she is able to stay with the patient and assist him as needed.
Andrey will provide transport home today.
No CM d/c needs identified.
Plan home.
--- NOTE | 2023-12-21 17:00 | CM ---
Patient with Dx confusion. Head CT done. PT Eval; No skilled PT needed.
Spoke with patient and his SO Andrey;
the patient resides with his SO in a one story house with ramp at entrance.
He has been independent in ADLs and ambulation without using any assistive devices.
The patient had recently been going to [facility], however he is not going there currently.
The patient fell on the day of his last admission on 12/10/23.
Andrey says patient's mentation seems improved to her however not completely at his baseline.
DME: RW, commode, hurry cane, w/c
No prior VN.
PCP - Mode Rubio
[facility]
Patient was instructed by Dr Leslie Lopez to request a script for outpatient PT from the PCP, and Andrey is aware.
Andrey works from home and feels she is able to stay with the patient and assist him as needed.
Andrey will provide transport home today.
No CM d/c needs identified.
Plan home.
[2023-12-24 01:18] LABS: Tacrolimus (Prograft - FK506) 15.6 ng/mL
== END 2023-12-21 16:56 | disposition home or self-care (01) ==
LOC: EMR 11:14
PROVIDERS: EMERGENCY PHYSICIAN Emergency Medicine; FAMILY PHYSICIAN Family Medicine
DX: R41.0 Disorientation, unspecified (principal); I10 Essential (primary) hypertension; Z87.891 Personal history of nicotine dependence
CPT/HCPCS: 99284; 70450; 80053; 80197; 81003; 81015; 84484; 85025

== ENCOUNTER 2024-03-13 14:31 | Inpatient (IN) | payer MEDICARE, OTHER, SELFPAY ==
[2024-03-13] VITALS (16 sets, daily range): BP systolic 105–182; BP diastolic 50–78; BMI 24.6; BMI 24.3
[2024-03-13 07:50] LABS: % Basophils 0.3 % (0-2); % Immature Granulocytes 0.5 % (0-0.5); % Lymphocytes 11.2 % (20.5-51.1); % Monocytes 5.2 % (1.7-9.3); % Neutrophils 79.8 % (42.2-75.2); Absolute Eosinophils 0.4 10^3/uL (0-0.7); Absolute Immature Granulocytes 0.1 10^3/uL (0-0.05); Absolute Lymphocytes 1.3 10^3/uL (1.2-3.4); Absolute Monocytes 0.6 10^3/uL (0.1-0.6); Absolute Neutrophils 9.6 10^3/uL (1.4-6.5); Hematocrit 32.1 % (39.0-52.0); Hemoglobin 10.5 g/dL (13.0-18.0); Mean Corp Hgb Conc. 32.7 g/dL (33.0-37.0); Mean Corpuscular Hgb 32.7 pg (27.0-31.0); Mean Platelet Volume 11.1 fL (7.4-10.4); Nucleated Red Blood Cells % 0 % (-); Platelet Count 216 10^3/uL (130-400); Red Blood Cell Count 3.21 10^6/uL (4.70-6.10)
[2024-03-13] MEDS: TYLENOL 650 MG PO (07:52)
[2024-03-13] MEDS: DUONEB 3 ML INH (07:52)
--- NOTE | 2024-03-13 07:56 | ED.GENMED ---
Addendum entered and electronically signed by Leighton Christianson DO 03/13/24 11:54:
Repeat EKG noted appears improved, will trend his troponin, give full dose aspirin
CRITICAL CARE STATEMENT: A total of 31 minutes of critical care time was provided for this patient. This includes management of unstable vital signs, evaluation of the patient at bedside, reviewing the patient's pertinent medical records discussion
with EMS providers and patient's family in addition to discussion with consultants, review of old EKGs and review of pertinent medical records. This time with separate from time utilized to perform the aforementioned documented procedures
Addendum entered and electronically signed by Leighton Christianson DO 03/13/24 11:45:
Update second troponin noted will repeat EKG
Original Note:
History of Present Illness
General
Chief Complaint: Chest Pain
Source: patient and records
Exam Limitations: none
Time Seen by Provider: 03/13/24 07:36
Nursing documentation reviewed up to this point in time: agreed with
Travel History
Have you had any contact with someone who has COVID-19?: No
Do you have any symptoms of coronavirus? Fever > 100 degrees, chills, cough, shortness of breath, sore throat, loss of taste or smell, muscle aches, or headache?: No
History of Present Illness
History of Present Illness:
69-year-old male presents with chest pain
Woke up from his sleep around 4 AM with cough fever chills
Significant other has been sick with similar complaints
History of renal transplant x 2 CAD status post multiple stenting procedures
Patient states he had pain in his chest similar to his prior angina
See nurses notes for what transpired prior to the patient's arrival by EMS of note patient had pulse ox in the high 80s placed on oxygen
Past History
Past History
ED Past Medical History: CAD, Cancer (Testicular CA with left testicle removed), CVA, HTN, Hypercholesterolemia, [place] and Other (kidney transplant)
ED Past Surgical History: Cardiac (Stents X3, CABG) and Other (Kidney transplant, Hernia repair X7, Parathyroidectomy, Bladder surgery)
Social History
Tobacco: Former smoker
Alcohol: None
Drug: None
Personal:
Living: other (Significant other)
Employment: Retired
Review of Systems
Review of Systems
All Other Systems: Not applicable
Constitutional: Reports fever, fatigue and chills
Respiratory: Reports cough and trouble breathing
Cardiac: Reports chest pain; Denies syncope
ABD/GI: Reports no symptoms
: Reports no symptoms
Musculoskeletal: Reports no symptoms
Skin: Reports no symptoms
Neurological: Reports weakness
Hematologic/Lymphatic: Reports no symptoms
Phy Exam
Physical Exam
Physical Exam:
Physical Exam
General: Chronically ill-appearing warm to touch
Neck: No jaundice
Heart: Tachycardia
Lungs: Crackles or rhonchi
Abdomen: Not tender
Neuro: alert and oriented. no focal neurological deficits
Skin: no rash
Psychiatric: well kept. interactive and cooperative
Extremities: no edema.
Scores
Heart Score for Chest Pain Patients
STEMI patient?: No
History: Moderately Suspicious
ECG: Nonspecific Repolarization
Age: >/= 65 years
Risk Factors: >/= 3 Risk Factors or History of CAD
Troponin: </= Normal Limit
Heart Score for Chest Pain Patients: 6
Heart Score Risk: 20.3% MACE over next 6 weeks
Course
Orders/Labs/Results
Orders:
Orders
03/13/24 07:25
Electrocardiogram (*1) Urgent
Reason for Study: Chest Pain
CR Chest - 2 Views Urgent
Comment:
Reason For Exam: shortness of breath
03/13/24 07:27
EKG- Treatment ONCE
03/13/24 07:28
C-Reactive Protein Urgent
Comprehensive Metabolic Panel Urgent
Blood Culture Urgent
GUILLERMO Source: Blood/Venous
Specimen Description:
03/13/24 07:29
COVID-19 Antigen Urgent
Source: Nasal Swab
Complete Blood Count/With Diff Urgent
Lactic Acid Urgent
NT-proBNP Urgent
Troponin I Urgent
Influenza A+B Rapid Molecular Urgent
GUILLERMO Source: Nasal Swab
Specimen Description:
Date Specimen was Collected: 03/13/24
Time Specimen was Collected: 07:26
03/13/24 07:46
Acetaminophen [Tylenol] 650 mg PO NOW STA
03/13/24 07:47
Ipratropium/Albuterol Sulfate [Duoneb] 3 ml INH R NOW STA
03/13/24 08:57
CefTRIAXone [Rocephin] 1,000 mg IV NOW STA
03/13/24 08:58
Dexamethasone Sod Phosphate [Decadron] 6 mg IV NOW STA
03/13/24 09:08
Lorazepam [Ativan] 1 mg .ROUTE .STK-MED ONE
03/13/24 09:11
Lorazepam [Ativan] 1 mg PO NOW STA
03/13/24 16:00
Alprazolam [Xanax] 1 mg PO TID
Abnormal Lab Results
03/13/24 03/13/24
07:28 07:29
WBC 12.0 H 10^3/uL
(4.8-10.8)
RBC 3.21 L 10^6/uL
(4.70-6.10)
Hgb 10.5 L g/dL
(13.0-18.0)
Hct 32.1 L %
(39.0-52.0)
MCV 100.0 H fL
(80.0-94.0)
MCH 32.7 H pg
(27.0-31.0)
MCHC 32.7 L g/dL
(33.0-37.0)
RDW 16.0 H %
(11.5-14.5)
MPV 11.1 H fL
(7.4-10.4)
Abs Immat Gran (auto) 0.1 H 10^3/uL
(0-0.05)
Absolute Neuts (auto) 9.6 H 10^3/uL
(1.4-6.5)
Neutrophils % 79.8 H %
(42.2-75.2)
Lymphocytes % 11.2 L %
(20.5-51.1)
Chloride 108 H mmol/L
(98-107)
BUN 26 H mg/dl
(9-20)
C-Reactive Protein 19.60 H mg/L
(0.0-10.00)
SARS-CoV-2 Antigen Positive A
(Negative)
03/13/24 07:29
03/13/24 07:28
Vital Signs
Initial and Last Documented VS:
Initial Vital Signs
Temp Pulse Resp BP Pulse Ox
99.5 F 93 22 182/78 94
03/13/24 07:28 03/13/24 07:28 03/13/24 07:28 03/13/24 07:28 03/13/24 07:28
Last Documented Vital Signs
Temp Pulse Resp BP Pulse Ox
99.5 F 97 20 166/73 96
03/13/24 07:28 03/13/24 08:30 03/13/24 08:30 03/13/24 08:27 03/13/24 08:30
MDM/Problems Addressed
Differential Diagnosis Includes:
Angina in the setting of infection, immunosuppressed with infection, pneumonia UTI bacteremia
MDM/Problems Addressed:
Chest pain fever cough
Chronic conditions affecting care: CAD, Neurological disorder, Immunosuppressed and Kidney disease
Acute Exacerbation and/or Progression of Chronic Illness: CAD, Neurological disorder, Immunosuppressed and Kidney disease
*Radiology
Radiology exam reviewed: preliminary read by ED provider
*Pulse Oximetry
Patient hypoxic: no
*EKG
Interpreted by ED Provider?: Yes
Interpretation: abnormal
Comparison EKG: no changes
Heart Rate: 78
Rate: normal
Rhythm: sinus
Ischemia: ST depression
*Md Urologist Interpretation
Rate: normal
Interpretation: normal
Heart Rate: 78
Rhythm: sinus
*Critical Care Note
Total Time (30-74mins, 75-104mins- exclusive of procedures): 15
ED Attending Note
-
Portions of this chart may have been created with voice recognition software.� Occasional wrong word or��sound alike� substitutions may have occurred due to the inherent limitations of voice recognition software.
Discharge Plan
Departure
Patient Disposition: Admit
Date of Disposition: 03/13/24
Time of Disposition: 09:52
Admit to: Telemetry
Presentation/result/management discussed w/ accepting MD/DO: Hospitalist
Patient with high blood pressure during this ER visit?: No
Condition: Fair
Covid-19: Confirmed COVID-19
Discharge Problem:
Fever, Immunocompromised, History of kidney transplant, Kidney transplant status
Prescriptions:
No Action
colchicine 0.6 MG tablet
0.6 mg PO DAILY
prednisone 5 MG tablet
5 mg PO DAILY
tamsulosin 0.4 MG capsule
0.8 mg PO HS
allopurinol 300 MG tablet
300 mg PO DAILY
ranolazine 500 MG tablet extended release 12 hr
500 mg PO BID
cholecalciferol (vitamin D3) 1,000 UNITS tablet
1,000 units PO DAILY
ezetimibe 10 MG tablet
10 mg PO HS
atorvastatin 40 MG tablet
40 mg PO HS
methenamine hippurate [Hiprex] 1 gram Tablet
1 g PO BID
nitroglycerin 0.4 mg Tablet, Sublingual
0.4 mg SUBLINGUAL [id number] PRN (Reason: chest pain)
alprazolam 1 mg tablet
1 mg PO TID PRN (Reason: anxiety)
Patient Comments:
12/10/2023: last filled 11/30/23, 90 tabs for [address] days [facility]
tacrolimus 1 mg Capsule
2 mg PO Q12 Qty: 0 0RF
metoprolol succinate 50 mg tablet extended release 24 hr
50 mg PO BID Qty: 0 0RF
mycophenolate mofetil [CellCept] 250 MG capsule
250 mg PO BID Qty: 0 0RF
valsartan 80 mg tablet
80 mg PO BID Qty: 0 0RF
clopidogrel 75 MG tablet
75 mg PO DAILY Qty: 90 3RF
aspirin 81 MG tablet,delayed release (DR/EC)
81 mg PO HS Qty: 0 0RF
isosorbide mononitrate 60 mg tablet extended release 24 hr
60 mg PO BID Qty: 0 0RF
pantoprazole 40 MG tablet,delayed release (DR/EC)
40 mg PO DAILY Qty: 90 3RF
docusate sodium 100 mg Capsule
100 mg PO HS Qty: 0 0RF
bupropion HCl [Wellbutrin XL] 300 mg Tablet Extended Release 24 Hr
300 mg PO DAILY Qty: 0 0RF
Systane (PF) 0.4-0.3 % Dropperette
1 drp BOTH EYES HS Qty: 0 0RF
PreserVision AREDS 1 CAP capsule
1 cap PO BID Qty: 0 0RF
Referrals:
Mode Rubio MD [Family Provider] -
Interventions
Interventions:
*Risk Screen - Suicide Last Done: 03/13/24 07:28
*General Assessment Last Done: 03/13/24 07:28
*Neglect/Abuse Screening Last Done: 03/13/24 07:28
ED- Fall Risk Assessment Last Done: 03/13/24 07:28
*ED COVID-19 Vaccine History Last Done: 03/13/24 07:28
ED- Cardiac Assessment Last Done: 03/13/24 07:28
Discharge Date and Time
Print Language: ARMENIAN
[2024-03-13 07:59] LABS: Lactic Acid 1.9 mmol/L (0.7-2.0)
[2024-03-13 08:01] LABS: ALT (SGPT) 15 U/L (0-50); AST (SGOT) 19 U/L (17-59); Albumin 3.7 g/dl (3.5-5.0); Alkaline Phosphatase 105 U/L (38-126); Blood Urea Nitrogen 26 mg/dl (9-20); Calcium 10.2 mg/dl (8.4-10.2); Carbon Dioxide 25 mmol/L (22-30); Chloride 108 mmol/L (98-107); Estimated Creatinine Clearance 58 ml/min; Glucose 92 mg/dl (70-99); Potassium 4.8 mmol/L (3.5-5.1); Sodium 142 mmol/L (135-145); Total Bilirubin 0.4 mg/dl (0.2-1.3); Total Protein 6.5 g/dl (6.3-8.2); eGFR > 60.00
[2024-03-13 08:05] LABS: COVID-19 Antigen Positive (Negative)
[2024-03-13 08:11] LABS: NT-proBNP 1710 pg/ml; Troponin I < 0.012 ng/ml
[2024-03-13] MEDS: DECADRON 6 MG IV (09:10)
[2024-03-13] MEDS: ROCEPHIN 1000 MG IV (09:10)
[2024-03-13] MEDS: ATIVAN 1 MG PO (09:11)
--- NOTE | 2024-03-13 09:55 | EDRN ---
the pt is resting in stretcher in the lowest position, side rails up x2, call machado within reach, HOB elevated, VS WNL, no c/o chest pain, no c/o SOB, the pt rings the call machado when he needs to get up and use the bathroom, the pt is a x1 assist to
and from the bathroom, the pts fiance is currently at the pts bedside, will continue to monitor the pt closely
[2024-03-13 11:44] LABS: Troponin I 0.373 ng/ml
[2024-03-13] MEDS: ASPIRIN 325 MG PO (11:55)
--- NOTE | 2024-03-13 13:25 | HPS.HSE ---
Family Physician
-
Family Physician: Mode Rubio
Chief Complaint
-
Chest pain
History of Present Illness
69-year-old male workup with chest pain around 4 AM. States that he had pain at the 'heart area' with no radiation. No shortness of breath. He took 4 nitro tablets and then called ambulance to come to the hospital. Pain slowly got better. He
also had cough with chills.
Medical History
Past Medical History
Past Medical History: Reports Other
Additional Past Medical History:
Hypertension, hyperlipidemia, atherosclerosis, coronary artery disease with history of stent, aortic regurgitation, peripheral artery disease, history of Castillo's palsy, chronic back pain/arthritis/sciatica/neuropathy, history of TIA, history of
testicular cancer, anxiety and depression, gout, rheumatoid arthritis,, history of alcohol abuse sober since 2008
Past Surgical History: Reports Other
Additional Past Surgical History:
History of kidney transplant 1997 failed and got another transplant in 2007, CABG, orchiectomy, history of parathyroidectomy
Social History
Tobacco: Former Smoker
Alcohol: Former
Drug: None
Family History
Family History: Not pertinent
Allergies / Home Medications
Allergies reflects when Allergies were last updated in [employer].
Home Medications with original date entered in [employer]
Allergy/Medication List:
Allergies
Allergy/AdvReac Type Severity Reaction Status Date / Time
adhesive tape Allergy Rash Verified 07/10/23 11:46
amoxicillin Allergy Rash/NAUSEA Verified 04/25/22 21:39
levofloxacin [From Levaquin] Allergy Nausea Verified 04/25/22 14:12
nitrofurantoin Allergy Rash Verified 04/25/22 14:12
[From Macrobid]
sulfamethoxazole Allergy Nausea Verified 07/10/23 11:46
[From Bactrim]
Tetracyclines Allergy Rash/'swells Verified 04/25/22 21:39
Palate'
trimethoprim [From Bactrim] Allergy Nausea Verified 07/10/23 11:46
Allergies
Allergy/AdvReac Type Severity Reaction Status Date / Time
adhesive tape Allergy Rash Verified 12/21/23 11:16
amoxicillin Allergy Rash/NAUSEA Verified 12/21/23 11:16
levofloxacin [From Levaquin] Allergy Nausea Verified 12/21/23 11:16
nitrofurantoin Allergy Rash Verified 12/21/23 11:16
[From Macrobid]
sulfamethoxazole Allergy Nausea Verified 12/21/23 11:16
[From Bactrim]
Tetracyclines Allergy Rash/'swells Verified 12/21/23 11:16
Palate'
trimethoprim [From Bactrim] Allergy Nausea Verified 12/21/23 11:16
Home Medications
colchicine 0.6 mg tablet 0.6 mg PO DAILY Gout 04/27/19
allopurinol 300 mg tablet 300 mg PO DAILY Gout 10/03/19
prednisone 5 mg tablet 5 mg PO DAILY Transplant 10/03/19
ranolazine 500 mg tablet,extended release,12 hr 500 mg PO BID Heart Failure 10/03/19
tamsulosin 0.4 mg capsule 0.4 mg PO BID@1700,2200 Urinary issue 10/03/19
ezetimibe 10 mg tablet 10 mg PO HS High cholesterol 01/26/20
atorvastatin 40 mg tablet 40 mg PO HS High cholesterol 10/24/20
methenamine hippurate 1 gram tablet (Hiprex) 1 g PO BID 04/25/22
nitroglycerin 0.4 mg sublingual tablet 0.4 mg sublingual [id number] PRN chest pain 04/25/22
alprazolam 1 mg tablet 2 mg PO HSPRN PRN anxiety 12/10/23
bupropion HCl 300 mg 24 hr tablet, extended release (Wellbutrin XL) 300 mg PO DAILY Mental Health/Anxiety #0 tabs 12/14/23
clopidogrel 75 mg tablet 75 mg PO DAILY Blood clot prevention/tx #90 tabs 12/14/23
docusate sodium 100 mg capsule 100 mg PO HS Constipation #0 caps 12/14/23
isosorbide mononitrate 60 mg tablet,extended release 24 hr 60 mg PO BID Heart disease/condition #0 tabs 12/14/23
metoprolol succinate 50 mg tablet,extended release 24 hr 50 mg PO BID Heart disease/condition #0 tabs 12/14/23
mycophenolate mofetil 250 mg capsule (CellCept) 250 mg PO BID Transplant #0 caps 12/14/23
pantoprazole 40 mg tablet,delayed release 40 mg PO DAILY Gastrointestinal issue #90 tabs 12/14/23
valsartan 80 mg tablet 80 mg PO BID Blood pressure #0 tabs 12/14/23
artificial tears(hypromellose) 0.3 % eye gel 1 drp BOTH EYES HS 03/13/24
aspirin 81 mg tablet,delayed release 81 mg PO DAILY Blood clot prevention/tx 03/13/24
cholecalciferol (vitamin D3) 25 mcg (1,000 unit) tablet 25 mcg PO DAILY 03/13/24
isosorbide mononitrate 30 mg tablet,extended release 24 hr 30 mg PO BID 03/13/24
oxycodone-acetaminophen 10 mg-325 mg tablet 1 tab PO Q4H PRN severe pain 03/13/24
propylene glycol 0.6 % eye drops (Systane Complete) 1 drp BOTH EYES TID 03/13/24
sennosides 8.6 mg tablet (senna) 17.2 mg PO HS 03/13/24
tacrolimus 1 mg capsule, immediate-release 1 mg PO Q12H Transplant 03/13/24
vitamins A,C,[id number] 4,296 mcg-226 mg-90 mg capsule (PreserVision AREDS) 1 cap PO BID 03/13/24
Review of Systems
-
A 12 point ROS was completed and negative except as noted: Yes
Respiratory: Denies Trouble Breathing
Cardiac: Reports Chest Pain; Denies Palpitations
Abdomen/GI: Denies Abdominal Pain or Diarrhea
Physical Exam
Vital Signs
Vital Signs
Temp Pulse Resp BP Pulse Ox
98.5 F 73 19 134/63 96
03/13/24 11:49 03/13/24 12:30 03/13/24 12:30 03/13/24 12:00 03/13/24 11:49
Physical Exam
General: Conversant
Respiratory: Rales (left) and Rhonchi (left)
Cardiac: S1/S2 and Regular Rhythm
GI: Soft, Non Tender and Normal Bowel Sounds
Musculoskeletal: No Edema
Neuro: Nonfocal/grossly intact
Psych: Calm
Laboratory Results
-
03/13/24 07:29
03/13/24 07:28
Laboratory Results
Lactic Acid 1.9 mmol/L (0.7-2.0) 03/13/24 07:29
Total Bilirubin 0.4 mg/dl (0.2-1.3) 03/13/24 07:28
AST 19 U/L (17-59) 03/13/24 07:28
ALT 15 U/L (0-50) 03/13/24 07:28
Alkaline Phosphatase 105 U/L (38-126) 03/13/24 07:28
Troponin I 0.373 ng/ml H* D 03/13/24 11:10
Data Reviewed
-
Diagnostic Radiology: Image Personally Visualized and interpreted (Moderate left lower lobe pneumonia)
Medical Tests (Nuc Med, Echo, EKG etc): Image Personally Visualized and interpreted (EKG-sinus rhythm nonspecific ST-T changes)
Impression/Plan
-
IMPRESSION/PLAN:
# Elevated troponin treat as non-STEMI
Follow troponin
EKG without acute ischemia
Heparin drip started
Aspirin load was given
Continue baby aspirin and also Plavix with a now dose
Continue metoprolol Statin, and valsartan
Patient is also on Ranexa as outpatient
Imdur was recently increased to 90 twice daily-continue
Cardiology evaluation
Routine echo
# Coronary artery disease with history of stent
History of CABG
History of non-STEMI
Cath 06/2023-severe calcific multivessel CAD with patent THIBODEAUX-LAD and patent LRA�RPDA bypass grafts�.Unsuccessful attempted PCI of distal OM 2 branch due to inability to pass balloon catheter to the lesion site.
Medical therapy recommended
# COVID-19 infection
Not hypoxic
Start Paxlovid given high risk
Infectious disease consultation requested
# Left lower lobe pneumonia-because of low immunity will also treat for bacterial pneumonia
Ceftriaxone and Zithromax
Sputum cultures are possible
Check blood cultures
# Anemia-check iron studies
# History of kidney transplant 1996 which failed and got another transplant in 2007
Continue Prograf 1 mg twice daily
Continue CellCept 250 twice daily
Prednisone 5 mg daily
Follow[address] with Dr. Diane at [facility] had a Zoom appointment on January 19, [address]24
[address] with [address] Murrieta at [facility]
Recent YURY treated at [facility] per patient
# Hypertension-valsartan 80 mg p.o. twice daily, metoprolol 50 twice daily
# Hyperlipidemia/atherosclerosis-Zetia, statin
# Aortic regurgitation
# Peripheral artery disease, Antiplatelets and Statin
# History of Castillo's palsy
# Chronic back pain/arthritis/sciatica/Neuropathy
Gabapentin
Opiate dependent for pain
# History of TIA-on Aspirin, Plavix, Statin
# History of testicular cancer with history of left orchiectomy
# Diverticulosis/History of IBS/History of hiatal hernia/History of bowel obstruction
# Anxiety/depression-continue Xanax 1 mg daily as needed
Continue Wellbutrin 300 mg p.o. daily
# Gout-continue colchicine, allopurinol
# History of rheumatoid arthritis
# History of parathyroidectomy
# History of alcohol abuse sober since 2008
# Hypoalbuminemia
# Ex-smoker
# DVT prophylaxis subcutaneous heparin
# Full code
D/W Significant other at bed side
D/W ER attending
Time spent over 75 min
--- NOTE | 2024-03-13 13:44 | CON.CAR ---
Consultation
Consultation Request
Date/Time Consultation Requested: 03/13/2024
Date/Time Consultation Performed: 03/13/2024
Reason for Consultation: Chest pain
Medical History
-
Chief Complaint: Chest pain
History of Present Illness:
69-year-old gentleman with a known history of coronary artery disease, status post coronary bypass graft with THIBODEAUX to LAD and LRA to RPDA, end-stage renal failure status post kidney transplant 1996, failed and second transplant in 2007,
hypertension, hyperlipidemia, peripheral artery disease, Castillo's palsy, chronic back pain, neuropathy, TIA, history of testicular cancer, anxiety and depression, gout, rheumatoid arthritis, history of alcohol abuse with sobriety since 2008,
orchiectomy, history of parathyroidectomy presented with new onset of chest pain starting at 4 AM this morning. Patient took 4 tablets of nitroglycerin and called paramedics to come to the ER. Patient was noted to be COVID-positive in the ER.
In the ER patient was noted to have no significant ischemic changes on the EKG. Patient's initial troponin was negative but the repeat shows increased in troponin levels. Patient does have a history of severe multivessel coronary disease with
history of CABG. Cardiac catheterization in June 2023 showed severe calcific multivessel CAD with patent THIBODEAUX-LAD and patent LRA�RPDA bypass grafts, Unsuccessful attempted PCI of distal OM 2 branch due to inability to pass balloon catheter to
the lesion site.
Patient has been deemed medical management since then and nitroglycerin has been increased.
Left heart cath 07/10/2023:
1: Systemic hypertension
2: Normal left ventricular function with EF 61%
3.� Severe calcific multivessel CAD with patent THIBODEAUX-LAD and patent LRA�RPDA bypass grafts
4.� Unsuccessful attempted PCI of distal OM 2 branch due to inability to pass balloon catheter to the lesion site
5.� Continue medical therapy.� We will increase the Isordil from 10 mg daily to 30 mg daily.
Past Medical History
Past Medical History: CAD (Severe calcific multivessel CAD with patent THIBODEAUX-LAD and patent LRA-RPDA bypass grafts, Unsuccessful attempted PCI of distal OM 2 branch due to inability to pass balloon catheter to the lesion site. ), HTN,
Hypercholesterolemia and Other (aortic regurgitation, peripheral artery disease, history of Castillo's palsy, chronic back pain/arthritis/sciatica/neuropathy, history of TIA, history of testicular cancer, anxiety and depression, gout, rheumatoid
arthritis,, history of alcohol abuse sober since 2008)
Social History
Tobacco: Former Smoker
Alcohol: Former
Drug: None
Family History
Family History: Reviewed & Not Pertinent
Allergies / Home Medications
Allergy/AdvReac Type Severity Reaction Status Date / Time
adhesive tape Allergy Rash Verified 12/21/23 11:16
amoxicillin Allergy Rash/NAUSEA Verified 12/21/23 11:16
levofloxacin [From Levaquin] Allergy Nausea Verified 12/21/23 11:16
nitrofurantoin Allergy Rash Verified 12/21/23 11:16
[From Macrobid]
sulfamethoxazole Allergy Nausea Verified 12/21/23 11:16
[From Bactrim]
Tetracyclines Allergy Rash/'swells Verified 12/21/23 11:16
Palate'
trimethoprim [From Bactrim] Allergy Nausea Verified 12/21/23 11:16
�Medication �Instructions �Recorded �Confirmed �Type
colchicine 0.6 mg tablet 0.6 mg PO DAILY Gout 04/27/19 03/13/24 History
allopurinol 300 mg tablet 300 mg PO DAILY Gout 10/03/19 03/13/24 History
prednisone 5 mg tablet 5 mg PO DAILY Transplant 10/03/19 03/13/24 History
ranolazine 500 mg tablet,extended 500 mg PO BID Heart Failure 10/03/19 03/13/24 History
release,12 hr
tamsulosin 0.4 mg capsule 0.4 mg PO BID@1700,2200 Urinary 10/03/19 03/13/24 History
issue
ezetimibe 10 mg tablet 10 mg PO HS High cholesterol 01/26/20 03/13/24 History
atorvastatin 40 mg tablet 40 mg PO HS High cholesterol 10/24/20 03/13/24 History
methenamine hippurate 1 gram 1 g PO BID 04/25/22 03/13/24 History
tablet (Hiprex)
nitroglycerin 0.4 mg sublingual 0.4 mg sublingual [id number] PRN 04/25/22 03/13/24 History
tablet chest pain
alprazolam 1 mg tablet 2 mg PO HSPRN PRN anxiety 12/10/23 03/13/24 History
bupropion HCl 300 mg 24 hr tablet, 300 mg PO DAILY Mental 12/14/23 03/13/24 Rx
extended release (Wellbutrin XL) Health/Anxiety #0 tabs
clopidogrel 75 mg tablet 75 mg PO DAILY Blood clot 12/14/23 03/13/24 Rx
prevention/tx #90 tabs
docusate sodium 100 mg capsule 100 mg PO HS Constipation #0 caps 12/14/23 03/13/24 Rx
isosorbide mononitrate 60 mg 60 mg PO BID Heart 12/14/23 03/13/24 Rx
tablet,extended release 24 hr disease/condition #0 tabs
metoprolol succinate 50 mg 50 mg PO BID Heart 12/14/23 03/13/24 Rx
tablet,extended release 24 hr disease/condition #0 tabs
mycophenolate mofetil 250 mg 250 mg PO BID Transplant #0 caps 12/14/23 03/13/24 Rx
capsule (CellCept)
pantoprazole 40 mg tablet,delayed 40 mg PO DAILY Gastrointestinal 12/14/23 03/13/24 Rx
release issue #90 tabs
valsartan 80 mg tablet 80 mg PO BID Blood pressure #0 tabs 12/14/23 03/13/24 Rx
artificial tears(hypromellose) 0.3 1 drp BOTH EYES HS 03/13/24 03/13/24 History
% eye gel
aspirin 81 mg tablet,delayed 81 mg PO DAILY Blood clot 03/13/24 03/13/24 History
release prevention/tx
cholecalciferol (vitamin D3) 25 25 mcg PO DAILY 03/13/24 03/13/24 History
mcg (1,000 unit) tablet
isosorbide mononitrate 30 mg 30 mg PO BID 03/13/24 03/13/24 History
tablet,extended release 24 hr
oxycodone-acetaminophen 10 mg-325 1 tab PO Q4H PRN severe pain 03/13/24 03/13/24 History
mg tablet
propylene glycol 0.6 % eye drops 1 drp BOTH EYES TID 03/13/24 03/13/24 History
(Systane Complete)
sennosides 8.6 mg tablet (senna) 17.2 mg PO HS 03/13/24 03/13/24 History
tacrolimus 1 mg capsule, 1 mg PO Q12H Transplant 03/13/24 03/13/24 History
immediate-release
vitamins A,C,G-hnqr-rznbeg 4,296 1 cap PO BID 03/13/24 03/13/24 History
mcg-226 mg-90 mg capsule
(PreserVision AREDS)
Review of Systems
-
All other systems: Negative unless noted
Physical Exam
Vital Signs
Temp Pulse Resp BP Pulse Ox
98.5 F 73 19 134/63 96
03/13/24 11:49 03/13/24 12:30 03/13/24 12:30 03/13/24 12:00 03/13/24 11:49
Lab Results
03/13/24 07:29
03/13/24 07:28
Troponin I 0.373 ng/ml H* D 03/13/24 11:10
Jlw-Q-Ypmqijzuhwf Pept 1710 pg/ml 03/13/24 07:29
Physical Exam
General: Well Developed, Well Nourished, No Apparent Distress and Other (Limited examination done due to COVID-positive isolation restrictions. Patient is chest pain free. Appears comfortable.)
HEENT: Normocephalic and Moist Mucous Membranes
Impression / Plan
-
69-year-old gentleman with severe coronary disease status post CABG with patent THIBODEAUX to LAD and LRA to RPDA on last cath, end-stage renal failure status post kidney transplant 1996, failed and second transplant in 2007, hypertension, hyperlipidemia,
peripheral artery disease, Castillo's palsy, chronic back pain, neuropathy, TIA, history of testicular cancer, anxiety and depression, gout, rheumatoid arthritis, history of alcohol abuse with sobriety since 2008, orchiectomy, history of
parathyroidectomy presented with chest pain.
Coronary artery disease
-Last cardiac cath in June 2023 with unsuccessful attempt of PCI to OM
-Patent THIBODEAUX to LAD and LRA to RPDA graft. Severe agdaagux vessel disease not amenable to intervention.
-Mild troponin leak could be manifestation of severe coronary disease as noted above.
-Currently chest pain-free. If chest pain starts, okay to start nitroglycerin drip.
-Sublingual nitroglycerin as needed.
-Continue Imdur 90 mg twice a day
-Continue metoprolol 50 mg twice a day
-Continue aspirin and Plavix 81/75 once a day.
-Continue Lipitor 40 mg nightly and Zetia 10 mg once a day
Hypertension
-On valsartan 80 mg twice a day and metoprolol 50 twice daily along with Imdur 90 twice daily
-With possible need for nitroglycerin, hold valsartan.
Renal transplant
-On immunosuppressive therapy including tacrolimus, allopurinol, colchicine
Data Reviewed
-
EKG: Tracing Personally Visualized and interpreted
Radiology: Report Reviewed by me
Medical Tests (Nuc Med, Echo etc): Image Personally Visualized and interpreted and Report Reviewed by me
Labs: Labs Reviewed by me
Old Records: Reviewed
Total Time Spent with Patient (in minutes): 76
[2024-03-13] MEDS: HEPARIN 25000 UNITS/250 ML IV (13:49)
[2024-03-13] MEDS: HEPARIN 3900 UNITS IV (13:49)
[2024-03-13 14:09] LABS: APTT 32.2 Sec (23.4-35.0)
[2024-03-13 14:56] LABS: Iron 34 ug/dl (49-181)
[2024-03-13 15:05] LABS: Percent Saturation 15 % (20-50); Total Iron Binding Capacity 217 ug/dl (261-462)
[2024-03-13] MEDS: PROTONIX 40 MG PO (15:35)
[2024-03-13] MEDS: ZITHROMAX 500 MG PO (15:35)
[2024-03-13] MEDS: PLAVIX 75 MG PO (15:35)
[2024-03-13] MEDS: XANAX 1 MG PO (15:38)
--- NOTE | 2024-03-13 15:50 | EDRN ---
verbal report called to the receiving IMU nurse
[2024-03-13] MEDS: CELLCEPT 250 MG PO ×2 (15:52→20:51)
[2024-03-13] MEDS: PROGRAF 1 MG PO ×2 (15:52→20:39)
[2024-03-13 16:04] LABS: Vitamin B12 435 pg/ml (239-931)
--- NOTE | 2024-03-13 16:32 | W.PN.UPDATE ---
Update Note
Progress Note Update
Discussed with pharmacy.
Paxlovid has interaction with Tacrolimus
Molnupiravir with no contraindications
Patient was given materials to read about Molnupiravir.
I have also reached out to ID.
[2024-03-13] MEDS: REFRESH EYE DROPS (PF) 1 DROPS BOTH EYES (18:20)
[2024-03-13] MEDS: FLOMAX 0.400000000000000022 MG PO ×2 (18:20→20:37)
[2024-03-13 20:03] LABS: APTT 54.6 Sec (23.4-35.0)
[2024-03-13] MEDS: SENOKOT 17.1999999999999993 MG PO (20:34)
[2024-03-13] MEDS: COLACE 100 MG PO (20:34)
[2024-03-13] MEDS: MUCINEX 600 MG PO (20:34)
[2024-03-13] MEDS: ZETIA 10 MG PO (20:35)
[2024-03-13] MEDS: LIPITOR 40 MG PO (20:35)
[2024-03-13] MEDS: REFRESH CELLUVISC GEL 1 DROPS BOTH EYES (20:35)
[2024-03-13] MEDS: IMDUR (EXTENDED RELEASE) 90 MG PO (20:36)
[2024-03-13] MEDS: TOPROL XL 50 MG PO (20:37)
[2024-03-13] MEDS: DIOVAN 80 MG PO (20:38)
[2024-03-13] MEDS: RANEXA EXTENDED RELEASE 500 MG PO (20:50)
--- NOTE | 2024-03-13 23:00 | PTCARENOTE ---
Care assumed of Pt from previous RN. Pt alert, forgetful at times, bed alarm on as precautions. Pt ringing to use bathroom as needed. Heparin gtt at 1000 units/ hr / 10 ml/hr, based off of most recent PTT which was 54.6. Pt took all Pm meds with
water. This RN provided education regarding purpose and use of each med with Pt. Pt Provided pm snack of jello and crackers. See nursing shift assessment for full head to toe. Call machado in reach.
[2024-03-13] MEDS: MOLNUPIRAVIR (EUA) 800 MG PO (23:31)
[2024-03-13] MEDS: XANAX 2 MG PO (23:36)
[2024-03-14] VITALS (13 sets, daily range): BP systolic 110–142; BP diastolic 60–125; BMI 24.1
[2024-03-14 01:17] LABS: Troponin I 0.505 ng/ml
[2024-03-14 03:12] LABS: APTT 69.8 Sec (23.4-35.0)
[2024-03-14 06:35] LABS: Magnesium 1.7 mg/dl (1.6-2.3)
[2024-03-14] MEDS: PROGRAF 1 MG PO ×2 (08:06→20:34)
[2024-03-14] MEDS: ROCEPHIN 1000 MG IV (08:07)
[2024-03-14] MEDS: TOPROL XL 50 MG PO ×2 (08:07→20:33)
[2024-03-14] MEDS: WELLBUTRIN XL (24 hour extended release) 300 MG PO (08:07)
[2024-03-14] MEDS: REFRESH EYE DROPS (PF) 1 DROPS BOTH EYES ×3 (08:08→16:39)
[2024-03-14] MEDS: STERILE WATER FOR INJECTION 10 ML IV (08:08)
[2024-03-14] MEDS: MOLNUPIRAVIR (EUA) 800 MG PO (08:08)
[2024-03-14] MEDS: DIOVAN 80 MG PO ×2 (08:08→20:36)
[2024-03-14] MEDS: MUCINEX 600 MG PO ×2 (08:08→20:33)
[2024-03-14] MEDS: RANEXA EXTENDED RELEASE 500 MG PO ×2 (08:09→20:34)
[2024-03-14] MEDS: VITAMIN D3 (cholecalciferol) 25 MCG PO (08:09)
[2024-03-14] MEDS: COLCHICINE 0.599999999999999978 MG PO (08:09)
[2024-03-14] MEDS: DELTASONE 5 MG PO (08:09)
[2024-03-14] MEDS: PLAVIX 75 MG PO (08:09)
[2024-03-14] MEDS: PROTONIX 40 MG PO (08:09)
[2024-03-14] MEDS: ZYLOPRIM 300 MG PO (08:09)
[2024-03-14] MEDS: ASPIR LOW (ENTERIC COATED) 81 MG PO (08:12)
[2024-03-14] MEDS: CELLCEPT 250 MG PO ×2 (08:17→20:34)
[2024-03-14] MEDS: MAGNESIUM SULFATE 102 GRAMS IV (08:18)
[2024-03-14] MEDS: ZITHROMAX 500 MG PO (08:32)
[2024-03-14] MEDS: IMDUR (EXTENDED RELEASE) PO (08:32)
--- NOTE | 2024-03-14 08:46 | W.PN.HOSP.TC ---
Today's Communication/Plan
-
Echo
Heparin drip
Continue antibiotics and molnupiravir
Follow labs-pending
Assessment / Plan
Assessment / Plan
69-year-old male workup with chest pain around 4 AM. States that he had pain at the 'heart area' with no radiation. No shortness of breath. He took 4 nitro tablets and then called ambulance to come to the hospital. Pain slowly got better. He
also had cough with chills.
Had one episode of CP this am. Resolved with SL Nitro.
CVS: S1-S2 normal
Chest: raeles left base
Abdomen: Soft, NT / Bowel sounds present
Extremities: No edema
SOIL CHEMIST: Non focal exam
# Elevated troponin treated as non-STEMI
Troponin trending down
EKG without acute ischemia
Heparin drip
Aspirin / Plavix /metoprolol /Statin /valsartan/Imdur
Imdur was recently increased to 90 twice daily
Patient is also on Ranexa as outpatient
Cardiology following
Routine echo
# Coronary artery disease with history of stent
History of CABG
History of non-STEMI
Cath 06/2023-severe calcific multivessel CAD with patent THIBODEAUX-LAD and patent LRA�RPDA bypass grafts�.Unsuccessful attempted PCI of distal OM 2 branch due to inability to pass balloon catheter to the lesion site.
Medical therapy recommended
# COVID-19 infection
Not hypoxic
Paxlovid has interaction with Tacrolimus. So Molnupiravir started
(Patient was given materials to read about)
Infectious disease consultation requested
# Left lower lobe pneumonia-because of low immunity will also treat for bacterial pneumonia
Ceftriaxone and Zithromax
Sputum cultures are possible
Pending blood cultures
# Anemia-add p.o. iron
# Leukocytosis-likely secondary to Decadron given in the ER yesterday
# History of kidney transplant 1996 which failed and got another transplant in 2007
Continue Prograf 1 mg twice daily
Continue CellCept 250 twice daily
Prednisone 5 mg daily
Follow[address] with Dr. Diane at [facility] had a Zoom appointment on January 19, 2024
[address] follows with [address] Murrieta at [facility]
Recent YURY treated at [facility] per patient
# Hypertension-valsartan 80 mg p.o. twice daily, metoprolol 50 twice daily
# Hyperlipidemia/atherosclerosis-Zetia, statin
# Aortic regurgitation
# Peripheral artery disease, Antiplatelets and Statin
# History of Castillo's palsy
# Chronic back pain/arthritis/sciatica/Neuropathy
Gabapentin
Opiate dependent for pain
# History of TIA-on Aspirin, Plavix, Statin
# History of testicular cancer with history of left orchiectomy
# Diverticulosis/History of IBS/History of hiatal hernia/History of bowel obstruction
# Anxiety/depression-continue Xanax
Patient states that he takes 2 mg at nighttime and 1 mg usually around 2 PM when he feels anxious.
Continue Wellbutrin 300 mg p.o. daily
# Gout-continue colchicine, allopurinol
# History of rheumatoid arthritis
# History of parathyroidectomy
# History of alcohol abuse sober since 2008
# Hypoalbuminemia
# Ex-smoker
# DVT prophylaxis subcutaneous heparin
# Full code
Discussed with patient's on the phone -from his cell phone reviewed about. Troponin, COVID, treatment plan
Patient requested a probiotic therefore added
Discussed with nursing
time spent 54 min
Anticipated Discharge: > 48 hours
Subjective/Interval History
-
Date of Service: March 14, 2024
Objective Data
-
Labs:
Laboratory Results
03/14/24 03/14/24
02:38 09:30
APTT 69.8 H Pending
Vital Signs:
Vital Signs
Temp Pulse Resp BP Pulse Ox
98.4 F 71 23 135/79 95
03/14/24 03:10 03/14/24 08:07 03/14/24 04:15 03/14/24 08:07 03/14/24 04:15
I&O
03/13/24 03/14/24 03/15/24
06:59 06:59 06:59
Intake Total 720 / 720
Balance 720 / 720
[2024-03-14] MEDS: NITROSTAT (SUBLINGUAL) 0.400000000000000022 MG SL ×5 (09:22→19:57)
--- NOTE | 2024-03-14 09:22 | PTCARENOTE ---
Pt Is AAOx3 very anxious and fearful that he is ging to . At 8a he had cp asked for Nitro, EKG done, Dr Jorge tt nitro order given, when I tried to give him Nitro he refused because CP was gone. Now he is yelling for a nurse because he has CP
and needs nitro one nitro given as ordered. Pt has stated his pian was a 10, immediately after getting Nitro he states the pain is subsiding
--- NOTE | 2024-03-14 09:27 | PTCARENOTE ---
2nd nitro given as he states his pain is at 3.vss good color
[2024-03-14 10:01] LABS: Hematocrit 28.3 % (39.0-52.0); Hemoglobin 9.2 g/dL (13.0-18.0); Mean Corp Hgb Conc. 32.5 g/dL (33.0-37.0); Mean Corpuscular Hgb 32.2 pg (27.0-31.0); Mean Platelet Volume 11.2 fL (7.4-10.4); Platelet Count 198 10^3/uL (130-400); Red Blood Cell Count 2.86 10^6/uL (4.70-6.10); Red Cell Dist. Width 16.2 % (11.5-14.5); White Blood Cell Count 14.3 10^3/uL (4.8-10.8)
[2024-03-14 10:11] LABS: APTT 52.1 Sec (23.4-35.0)
[2024-03-14 10:24] LABS: Blood Urea Nitrogen 29 mg/dl (9-20); Carbon Dioxide 23 mmol/L (22-30); Chloride 107 mmol/L (98-107); Estimated Creatinine Clearance 82 ml/min; Glucose 145 mg/dl (70-99); Sodium 139 mmol/L (135-145); eGFR > 60.00
[2024-03-14] MEDS: IMDUR (EXTENDED RELEASE) 60 MG PO (10:52)
[2024-03-14] MEDS: FLORASTOR 250 MG PO (10:52)
[2024-03-14] MEDS: FEOSOL 325 MG PO (10:52)
[2024-03-14] MEDS: ROXICODONE 10 MG PO ×2 (11:32→17:01)
--- NOTE | 2024-03-14 11:34 | PTCARENOTE ---
Pt states he has cp of 8 nitro given also roxicodone that he takes at home. Pt moaning and hamnging over the side of the bed . Now states CP is decreasing
--- NOTE | 2024-03-14 11:40 | W.PN.CD ---
Addendum entered and electronically signed by Jermain Chavez MD 03/14/24 19:27:
reviewed with [employer]OTE [employer] UNDERWRITER. agree with below.
Echo with normal LVF
Continue with medical therapy for CAD as patient is treated for Covid
Original Note:
Today's Communication / Plan
-
Echocardiogram today
Impression / Plan
-
BACKGROUND: 69M with severe coronary disease status post CABG with patent THIBODEAUX to LAD and LRA to RPDA on last cath, end-stage renal failure status post kidney transplant 1996, failed and second transplant in 2007, hypertension, hyperlipidemia,
peripheral artery disease, Castillo's palsy, chronic back pain, neuropathy, TIA, history of testicular cancer, anxiety and depression, gout, rheumatoid arthritis, history of alcohol abuse with sobriety since 2008, orchiectomy, history of
parathyroidectomy presented with chest pain & chills.
Cafeteria Server: BRIA
Associate Professor Of Surgery: Dr. Murrieta
Transplant: Dr. Diane ([facility])
Abnormal troponin, likely Type II AR
-Chest pain free
-Known medically managed CAD (see below)
-Peak troponin 0.540
-Echocardiogram today
Coronary artery disease
-Last cardiac cath in June 2023 with unsuccessful attempt of PCI to OM
-Patent THIBODEAUX to LAD and LRA to RPDA graft. Severe [place] vessel disease not amenable to intervention.
-Currently chest pain-free
-Continue medical mgmt (Imdur 90 mg twice a day, Ranexa 500 mg BID, metoprolol succinate 50 mg twice a day, aspirin 81mg, clopidogrel 75mg)
-Continue Lipitor 40 mg nightly and Zetia 10 mg once a day
Covid-19 infection, in an immunosuppressed host, not hypoxic, per primary
Hypertension, on valsartan 80 mg twice a day and metoprolol 50 twice daily along with Imdur 90 twice daily
Prior renal transplant, on immunosuppressive therapy including tacrolimus, allopurinol, colchicine
Prior TIA
Physical Exam
Vital Signs/Labs
Vital Signs
Temp Pulse Resp BP Pulse Ox
97.8 F 71 23 135/79 95
03/14/24 07:13 03/14/24 08:07 03/14/24 04:15 03/14/24 08:07 03/14/24 04:15
03/13/24 03/14/24 03/15/24
06:59 06:59 06:59
Actual Weight 63.6 kg
03/14/24 09:39
03/14/24 09:39
APTT 52.1 Sec (23.4-35.0) H 03/14/24 09:39
Magnesium 1.7 mg/dl (1.6-2.3) 03/14/24 06:06
03/13/24
07:29
Yec-Y-Btxpsabqftd Pept 1710
LAB Results
03/13/24 03/13/24 03/13/24
07:29 11:10 17:21
Troponin I < 0.012 0.373 H* D 0.540 H* D
03/13/24 03/14/24
23:26 00:12
Troponin I Cancelled 0.505 H*
Physical Exam
Constitutional: No acute distress and Comfortable
EENT: Anicteric and Moist mucous membranes
Cardiovascular: Rhythm & rate is regular, S1S2 is normal and Murmur/rub/gallop absent
Respiratory: Respiratory effort normal
GI: Soft, Distention absent, Flat, Non tender and Normal bowel sounds
Neuro/Psych: AO x 3
Other: Skin (warm and dry)
Data Reviewed
-
Date of Service: March 14, 2024
[2024-03-14] MEDS: XANAX 1 MG PO (13:21)
[2024-03-14] MEDS: HEPARIN 25000 UNITS/250 ML IV (13:21)
--- NOTE | 2024-03-14 14:33 | CM ---
Addendum entered by Vida Deng RN 03/14/24 14:45:
correction typo below: quad mac = quad cane
Original Note:
Patient with Dx NSTEMI, COVID-19 infection, pneumonia, anemia. Room air. Receiving IV Abx, Heparin gtt, molnupiravir. Per nurse assessment; assist of 1, ambulatory, forgetful. PT Screen; No skilled PT needed.
Spoke with patient's SO Andrey;
the patient resides with Andrey in a 1 story house with ramp.
He has been independent in ADLs an ambulation using his SPC when he goes out.
DME - RW, SPC, quad mac, shower chair, commode, w/c
Prior remote VN, possibly [facility]
No prior SNF
PCP - Mode Rubio
[facility]
Andrey is a nurse and works at a call center. She is unsure if patient will agree to VN for nurse check as after his last admission he cancelled it. She can assist the patient at home as needed.
Plan home.
--- NOTE | 2024-03-14 14:39 | W.CON.NEPH ---
Consultation
-
Date/Time Consultation Requested: 03/13/2024 16:30
Date/Time Consultation Performed: 03/14/2024 2:39PM
Requesting Provider: Perez Jorge
Performing Provider: Belkis Mcmahon
Reason for Consultation: hx of txp
Medical History
-
Chief Complaint: renal transplant
History of Present Illness:
Mr. Portillo is a 69YOM with PMH of renal transplant, HTN, DLD, AR, PAD, back pain, hx of TIA, diverticulosis, anxiety/depression, gout, RA, alcohol abuse who presents to the hospital after having an episode of chest pain. The patient was also found to
be COVID +.
Regarding his renal transplant, he originally had a kidney translant in 1996 which failed. He recieved another transplant in 2007. He is followed by Dr. Diane at [facility]. He also follows with Dr. Murrieta at [facility]. He states
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 His baseline Cr is normally around 0.7-1.
For his hypertension, he is managed with valsartan and metoprolol. Typically he is well coontrolled.
He also has a history of stroke for which he is on AC.
Regarding his chest pain, he states that he had another episode just prior to my initial visit with him. Improved with nitro.
Past Medical History
Hypertension, hyperlipidemia, atherosclerosis, coronary artery disease with history of stent, aortic regurgitation, peripheral artery disease, history of Castillo's palsy, chronic back pain/arthritis/sciatica/neuropathy, history of TIA, history of
testicular cancer, anxiety and depression, gout, rheumatoid arthritis,, history of alcohol abuse sober since 2008
Past Surgical History: Other
Social History
Tobacco: Former Smoker
Alcohol: Former
Drug: None
Family History
Family History: Not Pertinent
Allergies / Home Medications
Allergy/AdvReac Type Severity Reaction Status Date / Time
adhesive tape Allergy Rash Verified 12/21/23 11:16
amoxicillin Allergy Rash/NAUSEA Verified 12/21/23 11:16
levofloxacin [From Levaquin] Allergy Nausea Verified 12/21/23 11:16
nitrofurantoin Allergy Rash Verified 12/21/23 11:16
[From Macrobid]
sulfamethoxazole Allergy Nausea Verified 12/21/23 11:16
[From Bactrim]
Tetracyclines Allergy Rash/'swells Verified 12/21/23 11:16
Palate'
trimethoprim [From Bactrim] Allergy Nausea Verified 12/21/23 11:16
�Medication �Instructions �Recorded �Confirmed �Type
colchicine 0.6 mg tablet 0.6 mg PO DAILY Gout 04/27/19 03/13/24 History
allopurinol 300 mg tablet 300 mg PO DAILY Gout 10/03/19 03/13/24 History
prednisone 5 mg tablet 5 mg PO DAILY Transplant 10/03/19 03/13/24 History
ranolazine 500 mg tablet,extended 500 mg PO BID Heart Failure 10/03/19 03/13/24 History
release,12 hr
tamsulosin 0.4 mg capsule 0.4 mg PO BID@1700,2200 Urinary 10/03/19 03/13/24 History
issue
ezetimibe 10 mg tablet 10 mg PO HS High cholesterol 01/26/20 03/13/24 History
atorvastatin 40 mg tablet 40 mg PO HS High cholesterol 10/24/20 03/13/24 History
methenamine hippurate 1 gram 1 g PO BID Urinary Issue 04/25/22 03/13/24 History
tablet (Hiprex)
nitroglycerin 0.4 mg sublingual 0.4 mg sublingual [id number] PRN 04/25/22 03/13/24 History
tablet chest pain
alprazolam 1 mg tablet 2 mg PO HSPRN PRN anxiety 12/10/23 03/13/24 History
bupropion HCl 300 mg 24 hr tablet, 300 mg PO DAILY Mental 12/14/23 03/13/24 Rx
extended release (Wellbutrin XL) Health/Anxiety #0 tabs
clopidogrel 75 mg tablet 75 mg PO DAILY Blood clot 12/14/23 03/13/24 Rx
prevention/tx #90 tabs
docusate sodium 100 mg capsule 100 mg PO HS Constipation #0 caps 12/14/23 03/13/24 Rx
isosorbide mononitrate 60 mg 60 mg PO BID Heart 12/14/23 03/13/24 Rx
tablet,extended release 24 hr disease/condition #0 tabs
metoprolol succinate 50 mg 50 mg PO BID Heart 12/14/23 03/13/24 Rx
tablet,extended release 24 hr disease/condition #0 tabs
mycophenolate mofetil 250 mg 250 mg PO BID Transplant #0 caps 12/14/23 03/13/24 Rx
capsule (CellCept)
pantoprazole 40 mg tablet,delayed 40 mg PO DAILY Gastrointestinal 12/14/23 03/13/24 Rx
release issue #90 tabs
valsartan 80 mg tablet 80 mg PO BID Blood pressure #0 tabs 12/14/23 03/13/24 Rx
artificial tears(hypromellose) 0.3 1 drp BOTH EYES HS Eye Condition 03/13/24 03/13/24 History
% eye gel
aspirin 81 mg tablet,delayed 81 mg PO DAILY Blood clot 03/13/24 03/13/24 History
release prevention/tx
cholecalciferol (vitamin D3) 25 25 mcg PO DAILY Supplement 03/13/24 03/13/24 History
mcg (1,000 unit) tablet
isosorbide mononitrate 30 mg 30 mg PO BID Heart 03/13/24 03/13/24 History
tablet,extended release 24 hr Disease/Condition
oxycodone-acetaminophen 10 mg-325 1 tab PO Q4H PRN severe pain 03/13/24 03/13/24 History
mg tablet
propylene glycol 0.6 % eye drops 1 drp BOTH EYES TID Eye Condition 03/13/24 03/13/24 History
(Systane Complete)
sennosides 8.6 mg tablet (senna) 17.2 mg PO HS Gastrointestinal 03/13/24 03/13/24 History
Issue
tacrolimus 1 mg capsule, 1 mg PO Q12H Transplant 03/13/24 03/13/24 History
immediate-release
vitamins A,C,N-bybj-nhwqbi 4,296 1 cap PO BID Supplement 03/13/24 03/13/24 History
mcg-226 mg-90 mg capsule
(PreserVision AREDS)
Review of Systems
-
History Source: Patient
All other systems: Negative unless noted
Constitutional: Fatigue
Respiratory: Trouble Breathing
Cardiac: Chest Pain
Physical Exam
Vital Signs
Vital Signs
Temp Pulse Resp BP Pulse Ox
97.8 F 64 20 140/68 95
03/14/24 11:12 03/14/24 12:00 03/14/24 12:00 03/14/24 12:00 03/14/24 10:15
Lab Results
WBC 14.3 10^3/uL (4.8-10.8) H 03/14/24 09:39
RBC 2.86 10^6/uL (4.70-6.10) L 03/14/24 09:39
Hgb 9.2 g/dL (13.0-18.0) L 03/14/24 09:39
Hct 28.3 % (39.0-52.0) L 03/14/24 09:39
Plt Count 198 10^3/uL (130-400) 03/14/24 09:39
Sodium 139 mmol/L (135-145) 03/14/24 09:39
Potassium 5.0 mmol/L (3.5-5.1) 03/14/24 09:39
Chloride 107 mmol/L (98-107) 03/14/24 09:39
Carbon Dioxide 23 mmol/L (22-30) 03/14/24 09:39
BUN 29 mg/dl (9-20) H 03/14/24 09:39
Creatinine 0.7 mg/dL (0.7-1.3) 03/14/24 09:39
eGFR > 60.00 03/14/24 09:39
Glucose 145 mg/dl (70-99) H 03/14/24 09:39
Calcium 10.0 mg/dl (8.4-10.2) 03/14/24 09:39
Rkz-I-Odgtmucftxw Pept 1710 pg/ml 03/13/24 07:29
Albumin 3.7 g/dl (3.5-5.0) 03/13/24 07:28
Physical Exam
General: AOx3, No Distress and Nontoxic
HEENT: PERRL, EOMI, Anicteric, Conjunctivae Clear, Ear/Nose Intact, Hearing Normal, Dentition Intact, Facial Symmetry, Neck Supple and Trachea Midline
Respiratory: Rhonchi (L side)
Cardiac: S1/S2, Regular Rate/Rhythm and No Edema
Breast: N/A
Abdomen: Soft, Nontender, Nondistended, Normal Bowel Sounds and No Hepatosplenomegaly
Rectal: Deferred by Provider
Genito-urinary: No Costovertebral Tender
Musculoskeletal: No Clubbing, No Cyanosis and No Edema
Skin: No Rash, Warm and Dry
Neuro: Nonfocal/Grossly Intact
Hematologic/Lymphatic: No Cervical Lymphadenopathy
Psych: Mood/afflect pleasant, Insight/judgement good and Appropriate
Data Reviewed
-
Radiology: Image Personally Visualized and interpreted (LLL PNA)
Labs: Labs Reviewed by me, Discussed with Physician, Discussed with Nurse and Discussed with Patient
Old Records: Reviewed
Assessment/Plan
-
Assessment:
renal txp in 2007 (prior 1996, failed)
COVID 19
LLL PNA
Type II [place]
CAD
HTN
back pain
hx of TIA
Plan:
- Cr is currently at baseline
- cardiology on board for chest pain and known CAD, no plans for cath
- COVID-19 infection. should NOT use paxlovid as this can affect tac levels
- continue current IS with MMF, tac and prednisone as he is on room air. no need to hold MMF at this time
- plan for tac level tomorrow AM
--- NOTE | 2024-03-14 15:21 | CON.ID ---
Consultation
-
Date/Time Consultation Requested: 03/13/24 14:00
Date/Time Consultation Performed: 03/14/24 15:21
Requesting Provider: Dr Jorge
Performing Provider: Dr Roberts
Reason for Consultation: COVID,PNA
Chief Complaint / Past History
Chief Complaint
chest pain
History of Present Illness
Mr Portillo is a 69 year old male with history of RT s/p transplant x2 last 2007 (MMF 250 mg PO BID, tacro 1 q12, Pred 5 mg; solitary kidney with reflux nephropathy), RA, numerous antibiotic intolerances/allergies, presented here for chest pain which
has responded to nitro. EKG without ischemic changed, troponin negative. COVID ag positive. Patient previously vaccinated for covid.
Since arrival here he has been afebrile, bp stable, saturating mid to low 90s on room air, afebrile, bp stable, minimal O2 requirement, mild leukocytosis on home dose of prednisone which is 5 mg PO qday, wbc 14 on arrival, L shfit and mild
lymphopenia noted, cr 0.7, troponins mildly elevated at 0.5 - now downtrending, crp 19, pro bnp 1710, CXR: moderate LLL pneumonia, covid ag +, flu pcr neg, single blood culture done, currently on cefdinir/azithromycin/molnupiravir. ID is consulted
for assistance with management.
Past History
Additional Past Medical History:
Hypertension, hyperlipidemia, atherosclerosis, coronary artery disease with history of stent, aortic regurgitation, peripheral artery disease, history of Castillo's palsy, chronic back pain/arthritis/sciatica/neuropathy, history of TIA, history of
testicular cancer, anxiety and depression, gout, rheumatoid arthritis,, history of alcohol abuse sober since 2008
Additional Past Surgical History:
History of kidney transplant 1997 failed and got another transplant in 2007, CABG, orchiectomy, history of parathyroidectomy
Allergy History:
adhesive tape Allergy (Verified 12/21/23 11:16)
Rash
amoxicillin Allergy (Verified 12/21/23 11:16)
Rash/NAUSEA
levofloxacin [From Levaquin] Allergy (Verified 12/21/23 11:16)
Nausea
nitrofurantoin [From Macrobid] Allergy (Verified 12/21/23 11:16)
Rash
sulfamethoxazole [From Bactrim] Allergy (Verified 12/21/23 11:16)
Nausea
Tetracyclines Allergy (Verified 12/21/23 11:16)
Rash/'swells Palate'
trimethoprim [From Bactrim] Allergy (Verified 12/21/23 11:16)
Nausea
Medications Reviewed: Yes
Social History
Tobacco: Former Smoker
Alcohol: Former
Drug: None
Family History
Family History: Not Pertinent
Review of Systems
Review of Systems
General: Negative Fever or Chills
All systems: All other systems were reviewed and were negative
Vital Signs
Temp Pulse Resp BP Pulse Ox
97.8 F 64 20 140/68 95
03/14/24 11:12 03/14/24 12:00 03/14/24 12:00 03/14/24 12:00 03/14/24 10:15
Physical Exam
Lab / Diagnostic Study Results
03/14/24 09:39
03/14/24 09:39
Abs Immat Gran (auto) 0.1 10^3/uL (0-0.05) H 03/13/24 07:29
Absolute Neuts (auto) 9.6 10^3/uL (1.4-6.5) H 03/13/24 07:29
Absolute Lymphs (auto) 1.3 10^3/uL (1.2-3.4) 03/13/24 07:29
Absolute Monos (auto) 0.6 10^3/uL (0.1-0.6) 03/13/24 07:29
Absolute Basos (auto) 0.0 10^3/uL (0-0.2) 03/13/24 07:29
Immature Gran % 0.5 % (0-0.5) 03/13/24 07:
Neutrophils % 79.8 % (42.2-75.2) H 03/13/24 07:
Lymphocytes % 11.2 % (20.5-51.1) L 03/13/24 07:
Monocytes % 5.2 % (1.7-9.3) 03/13/24:
Eosinophils % 3.0 % (0-6) 03/13/24 07:
Basophils % 0.3 % (0-2) 03/13/24:
Lactic Acid 1.9 mmol/L (0.7-2.0) 03/13/24:
C-Reactive Protein 19.60 mg/L (0.0-10.00) H 03/13/24 07:28
Microbiology Results
Micro:
03/13/24 07:28 Blood Culture - Preliminary
Blood/Venous No Growth in 24 hours- Final report to follow
03/13/24 07:29 Influenza Types A & B (GISELLE) - Final
Nasal Swab Negative for Influenza A & B, NAAT
Negative results must be combined with clinical observations
and patient history.
Nucleic Acid Amplification test (NAAT)performed on the
[employer] platform.
Assessment / Plan
COVID 19 Infection
Immunosuppression - MMF, tacrolimus
Renal Transplant
RA
Multiple drug allergies/intolerances
- cat D interaction between tacrolimus and Paxlovid; AST recommends against combination outside of intensive monitoring
- saturations acceptable on room air
- agree with molnupiravir x5 days - called in molnupiravir to [facility] at patient request - it is in stock
- would not increase steroids at this time
- agree with cefdinir/azithromcyin x5 days - still needs script
- echo is planned
- likely stable for dc in the near future
Care Review
Plan reviewed with: Other Provider (pharmacy - [facility])
[2024-03-14] MEDS: FLOMAX 0.400000000000000022 MG PO ×2 (16:39→20:36)
--- NOTE | 2024-03-14 17:02 | PTCARENOTE ---
Pt yelling help states he has heart pain at 9 given Nitro sl states its decreasing. DRawing lsbs for PTT and blood cultures
[2024-03-14 19:10] LABS: Hepatitis C Antibody Negative (Negative)
--- NOTE | 2024-03-14 19:42 | PTCARENOTE ---
awaiting results from PTT drawn at 17:19. Called lab, states pending in [facility]. I was told it was never received. Placed repeat order for PTT.
--- NOTE | 2024-03-14 20:30 | PTCARENOTE ---
Addendum entered by Chester Burciaga RN 03/14/24 20:50:
trop sent
Original Note:
Pt c/o 04/06 chest pain. Pt awake engaging in conversation with nurse, sitting upright in bed. Pt given nitro 1x. EKG done. NSR. EKG sent to [facility]. Pt admitted to relief of pain after nitro.
[2024-03-14] MEDS: LIPITOR 40 MG PO (20:33)
[2024-03-14] MEDS: ZETIA 10 MG PO (20:33)
[2024-03-14] MEDS: SENOKOT 17.1999999999999993 MG PO (20:33)
[2024-03-14] MEDS: COLACE 100 MG PO (20:33)
[2024-03-14] MEDS: REFRESH CELLUVISC GEL 1 DROPS BOTH EYES (20:34)
[2024-03-14 21:23] LABS: Troponin I 0.452 ng/ml
[2024-03-14] MEDS: XANAX 2 MG PO (22:13)
[2024-03-14] MEDS: IMDUR (EXTENDED RELEASE) 90 MG PO (22:13)
[2024-03-15] VITALS (12 sets, daily range): BP systolic 98–144; BP diastolic 49–97; PULSE 79; O2SAT 95; BMI 23.6
[2024-03-15] MEDS: MOLNUPIRAVIR (EUA) 800 MG PO ×3 (00:20→20:17)
[2024-03-15 02:36] LABS: APTT 89.6 Sec (23.4-35.0)
[2024-03-15 04:29] LABS: Hematocrit 27.4 % (39.0-52.0); Hemoglobin 9.2 g/dL (13.0-18.0); Mean Corp Hgb Conc. 33.6 g/dL (33.0-37.0); Mean Corpuscular Hgb 32.4 pg (27.0-31.0); Mean Corpuscular Volume 96.5 fL (80.0-94.0); Mean Platelet Volume 11.6 fL (7.4-10.4); Platelet Count 205 10^3/uL (130-400); Red Blood Cell Count 2.84 10^6/uL (4.70-6.10); Red Cell Dist. Width 16.1 % (11.5-14.5); White Blood Cell Count 13.3 10^3/uL (4.8-10.8)
[2024-03-15 04:58] LABS: Blood Urea Nitrogen 31 mg/dl (9-20); Calcium 10.5 mg/dl (8.4-10.2); Carbon Dioxide 26 mmol/L (22-30); Chloride 107 mmol/L (98-107); Estimated Creatinine Clearance 72 ml/min; Glucose 95 mg/dl (70-99); Magnesium 1.9 mg/dl (1.6-2.3); Potassium 4.5 mmol/L (3.5-5.1); Sodium 140 mmol/L (135-145); eGFR > 60.00
[2024-03-15] MEDS: PROGRAF 1 MG PO ×2 (07:59→20:16)
[2024-03-15] MEDS: CELLCEPT 250 MG PO ×2 (07:59→20:16)
[2024-03-15] MEDS: FLORASTOR 250 MG PO (08:00)
[2024-03-15] MEDS: TOPROL XL 50 MG PO ×2 (08:00→20:16)
[2024-03-15] MEDS: ZITHROMAX 500 MG PO (08:01)
[2024-03-15] MEDS: ROXICODONE 10 MG PO ×2 (08:01→20:22)
[2024-03-15] MEDS: IMDUR (EXTENDED RELEASE) 90 MG PO ×2 (08:02→20:16)
[2024-03-15] MEDS: ASPIR LOW (ENTERIC COATED) 81 MG PO (08:02)
[2024-03-15] MEDS: REFRESH EYE DROPS (PF) 1 DROPS BOTH EYES ×3 (08:03→16:37)
[2024-03-15] MEDS: DIOVAN 80 MG PO ×2 (08:04→20:16)
[2024-03-15] MEDS: MUCINEX 600 MG PO ×2 (08:04→20:16)
[2024-03-15] MEDS: DELTASONE 5 MG PO (08:04)
[2024-03-15] MEDS: RANEXA EXTENDED RELEASE 500 MG PO ×2 (08:04→20:16)
[2024-03-15] MEDS: ZYLOPRIM 300 MG PO (08:05)
[2024-03-15] MEDS: FEOSOL 325 MG PO (08:05)
[2024-03-15] MEDS: PLAVIX 75 MG PO (08:05)
[2024-03-15] MEDS: COLCHICINE 0.599999999999999978 MG PO (08:05)
[2024-03-15] MEDS: PROTONIX 40 MG PO (08:05)
[2024-03-15] MEDS: WELLBUTRIN XL (24 hour extended release) 300 MG PO (08:05)
[2024-03-15] MEDS: VITAMIN D3 (cholecalciferol) 25 MCG PO (08:06)
[2024-03-15] MEDS: ROCEPHIN 1000 MG IV (08:06)
[2024-03-15] MEDS: STERILE WATER FOR INJECTION 10 ML IV (08:07)
--- NOTE | 2024-03-15 10:15 | W.PN.ID1 ---
Date of Service
Date of Service: March 15, 2024
Today's Communication
- agree with molnupiravir x5 days - called in molnupiravir to [facility] at patient request - it is in stock
- would not increase steroids at this time
- agree with cefdinir/azithromcyin x5 days 03/13-03/17
- follow clinically
Assessment / Plan
COVID 19 Infection - mild
Immunosuppression - MMF, tacrolimus
Renal Transplant
RA
Multiple drug allergies/intolerances
- cat D interaction between tacrolimus and Paxlovid; AST recommends against combination outside of intensive monitoring
- saturations mid 90s on room air throughout my exam
- agree with molnupiravir x5 days - called in molnupiravir to [facility] at patient request - it is in stock
- would not increase steroids at this time
- agree with cefdinir/azithromcyin x5 days 03/13-03/17
- follow clinically
Chief Complaint
-: Other (covid-19 infection, immunosuppression)
Subjective / Review of Systems
remains afebrile
remains on room air saturating high 80s to low 90s
wbc slight improvement
cr 0.8
blood cultures non growth to date
echo: normal EF
Vital Signs / Physical Exam
Vital Signs
Vital Signs
Temp Pulse Resp BP Pulse Ox
97.6 F 68 17 135/70 90
03/15/24 08:22 03/15/24 08:00 03/15/24 06:30 03/15/24 08:00 03/15/24 06:30
Physical Exam
Constitutional: No Acute Distress and Chronically Ill
Cardiovascular: Regular Rate and S1/S2; Negative Murmur or Rub
Pulmonary: Clear and Symmetric; Negative Wheezes or Rales
Gastrointestinal: Soft, Non Tender, Non Distended and Normal Bowel Sounds
Skin: Warm and Dry; Negative Rash or Jaundice
Neurological: Awake
Objective Data
Lab Data
Lab Results
03/15/24 04:16
03/15/24 04:16
APTT 89.6 Sec (23.4-35.0) H 03/15/24 02:14
Estimated Creat Clear 72 ml/min 03/15/24 04:16
Lactic Acid 1.9 mmol/L (0.7-2.0) 03/13/24 07:29
Total Bilirubin 0.4 mg/dl (0.2-1.3) 03/13/24 07:28
AST 19 U/L (17-59) 03/13/24 07:28
ALT 15 U/L (0-50) 03/13/24 07:28
Alkaline Phosphatase 105 U/L (38-126) 03/13/24 07:28
C-Reactive Protein 19.60 mg/L (0.0-10.00) H 03/13/24 07:28
Most recent labs reviewed.
Micro Results:
03/13/24 07:28 Blood Culture - Preliminary
Blood/Venous No Growth in 48 hours- Final report to follow
03/14/24 17:19 Blood Culture - Pending
Blood/Venous
03/13/24 07:29 Influenza Types A & B (GISELLE) - Final
Nasal Swab Negative for Influenza A & B, NAAT
Negative results must be combined with clinical observations
and patient history.
Nucleic Acid Amplification test (NAAT)performed on the
[employer] platform.
Care Review
Plan reviewed with: Physician (Dr Ania laura)
[2024-03-15] MEDS: HEPARIN 25000 UNITS/250 ML IV (10:46)
--- NOTE | 2024-03-15 11:07 | W.PN.HOSP.TC ---
Today's Communication/Plan
-
Per discussion with cardiology heparin drip can be stopped today and watch patient another 24 hours and if stable can be discharged tomorrow.
PT OT
Assessment / Plan
Assessment / Plan
69-year-old male workup with chest pain around 4 AM. States that he had pain at the 'heart area' with no radiation. No shortness of breath. He took 4 nitro tablets and then called ambulance to come to the hospital. Pain slowly got better. He
also had cough with chills.
CVS: S1-S2 normal
Chest:few rales left base
Abdomen: Soft, NT / Bowel sounds present
Extremities: No edema
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
# Elevated troponin -type II [place] per discussion cardiology
Troponin trending down
EKG without acute ischemia
Heparin drip to be stopped per cards
Aspirin / Plavix /metoprolol /Statin /valsartan/Imdur
Imdur was recently increased to 90 twice daily
Patient is also on Ranexa as outpatient
Cardiology following
Routine echo-03/14/2024-normal LV size and function. Mild concentric LVH. EF 65 to 70%. Mild MR. Trace AI. Trace TR
# Coronary artery disease with history of stent
History of CABG
History of non-STEMI
Cath 06/2023-severe calcific multivessel CAD with patent THIBODEAUX-LAD and patent LRA�RPDA bypass grafts�.Unsuccessful attempted PCI of distal OM 2 branch due to inability to pass balloon catheter to the lesion site.
Medical therapy recommended
# COVID-19 infection
Not hypoxic
Paxlovid has interaction with Tacrolimus. So Molnupiravir started
(Patient was given materials to read about)
Infectious disease consultation appreciated
# Left lower lobe pneumonia-because of low immunity will also treat for bacterial pneumonia
Ceftriaxone and Zithromax
Sputum cultures are possible
Cultures negative
# Anemia-added p.o. iron
# Leukocytosis-likely secondary to Decadron given in the ER -improving
# History of kidney transplant 1996 which failed and got another transplant in 2007
Continue Prograf 1 mg twice daily
Continue CellCept 250 twice daily
Prednisone 5 mg daily
Follow[address] with Dr. Diane at [facility] had a Zoom appointment on January 19, 2024
Also follows with Dr. Murrieta at [facility]
Recent YURY treated at [facility] per patient
# Hypertension-valsartan 80 mg p.o. twice daily, metoprolol 50 twice daily
# Hyperlipidemia/atherosclerosis-Zetia, statin
# Aortic regurgitation
# Peripheral artery disease, Antiplatelets and Statin
# History of Castillo's palsy
# Chronic back pain/arthritis/sciatica/Neuropathy
Gabapentin
Opiate dependent for pain
# History of TIA-on Aspirin, Plavix, Statin
# History of testicular cancer with history of left orchiectomy
# Diverticulosis/History of IBS/History of hiatal hernia/History of bowel obstruction
# Anxiety/depression-continue Xanax
Patient states that he takes 2 mg at nighttime and 1 mg usually around 2 PM when he feels anxious.
Continue Wellbutrin 300 mg p.o. daily
# Gout-continue colchicine, allopurinol
# History of rheumatoid arthritis
# History of parathyroidectomy
# History of alcohol abuse sober since 2008
# Hypoalbuminemia
# Ex-smoker
# DVT prophylaxis subcutaneous heparin
# Full code
Discussed with Cards
D/W ID
D/W Nephrology
Patient requested a probiotic therefore added 03/14/24
Discussed with nursing
time spent 51 min
Anticipated Discharge: Within 24 hours
Subjective/Interval History
-
Date of Service: March 15, 2024
Objective Data
-
Labs:
Laboratory Results
03/15/24 03/15/24
02:14 04:16
WBC 13.3 H
Hgb 9.2 L
Hct 27.4 L
Plt Count 205
APTT 89.6 H
Sodium 140
Potassium 4.5
Chloride 107
Carbon Dioxide 26
BUN 31 H
Creatinine 0.8
Glucose 95
Calcium 10.5 H
Vital Signs:
Vital Signs
Temp Pulse Resp BP Pulse Ox
97.6 F 68 17 135/70 90
03/15/24 08:22 03/15/24 08:00 03/15/24 06:30 03/15/24 08:00 03/15/24 06:30
I&O
03/14/24 03/15/24 03/16/24
06:59 06:59 06:59
Intake Total 720 / 720 720 / 720
Balance 720 / 720 720 / 720
--- NOTE | 2024-03-15 12:31 | W.PN.CD ---
Today's Communication / Plan
-
-
-
Will stop IV heparin.
-
Impression / Plan
-
Background: 69M with severe coronary disease status post CABG with patent THIBODEAUX to LAD and LRA to RPDA on last cath, end-stage renal failure status post kidney transplant 1996, failed and second transplant in 2007, hypertension, hyperlipidemia,
peripheral artery disease, Castillo's palsy, chronic back pain, neuropathy, TIA, history of testicular cancer, anxiety and depression, gout, rheumatoid arthritis, history of alcohol abuse with sobriety since 2008, orchiectomy, history of
parathyroidectomy presented with chest pain & chills. Casino Runner: BRIA Director Of Casework Department: Dr. Murrieta Transplant: Dr. Diane ([facility])
Covid-19 infection, in an immunosuppressed host
Left lobe pneumonia
Abnormal troponin with chest pain on admit, peak trop 0.54. Will call it a Type II KS
- echo normal LVEF/wall motion, EKG w/o dynamic changes
- Given known CAD the stress to infection likely precipitated this small KS, cannot ruled out non-ischemic myocardial injury from Covid infection
Established CAD
- Last cardiac cath in June 2023 with unsuccessful attempt of PCI to OM with Patent THIBODEAUX to LAD and LRA to RPDA graft. Severe [place] vessel disease not amenable to intervention.
Hypertension, on valsartan 80 mg twice a day and metoprolol 50 twice daily along with Imdur 90 twice daily
Prior renal transplant, on immunosuppressive therapy including tacrolimus, allopurinol, colchicine
Prior TIA
Subjective:
No CP
Physical Exam
Vital Signs/Labs
Vital Signs
Temp Pulse Resp BP Pulse Ox
97.6 F 65 23 143/77 94
03/15/24 08:22 03/15/24 11:45 03/15/24 11:45 03/15/24 08:00 03/15/24 11:45
03/14/24 03/15/24 03/16/24
06:59 06:59 06:59
Actual Weight 63.6 kg 62.4 kg
03/15/24 04:16
03/15/24 04:16
APTT 89.6 Sec (23.4-35.0) H 03/15/24 02:14
Magnesium 1.9 mg/dl (1.6-2.3) 03/15/24 04:16
03/13/24
07:29
Ppc-Y-Ycuuzcultva Pept 1710
LAB Results
03/13/24 03/13/24 03/13/24
07:29 11:10 17:21
Troponin I < 0.012 0.373 H* D 0.540 H* D
03/13/24 03/14/24 03/14/24
23:26 00:12 20:45
Troponin I Cancelled 0.505 H* 0.452 H*
Physical Exam
Constitutional: No acute distress
EENT: Anicteric
Cardiovascular: Rhythm & rate is regular and Pedal edema is absent
Respiratory: Respiratory effort normal and Crackles Present (only at left base)
GI: Soft and Distention absent
Neuro/Psych: AO x 3
Data Reviewed
-
Date of Service: March 15, 2024
--- NOTE | 2024-03-15 13:14 | PTCARENOTE ---
Pt AAOx3 no cp today. Heparin DC awaiting PT . visited for a short time
--- NOTE | 2024-03-15 14:39 | W.PN.NEPH.PH ---
Today's Communication / Plan
-
plan for discharge tomorrow
awaiting tac elvel
Assessment/Plan
-
Assessment:
renal txp in 2007 (prior 1996, failed)
COVID 19
LLL PNA
Type II [place]
CAD
HTN
back pain
hx of TIA
Plan:
- Cr is currently at baseline
- cardiology on board for chest pain and known CAD, no plans for cath
- COVID-19 infection. should NOT use paxlovid as this can affect tac levels
- continue current IS with MMF, tac and prednisone as he is on room air. no need to hold MMF at this time
- awaiting tac level from this AM
-
-
Date of Service: March 15, 2024
CC / HPI / ROS
-
Chief Complaint:
hx of renal txp
History of Present Illness:
COVID
chest pain
Review of Systems:
feeling improved
Labs
-
Labs:
WBC 13.3 10^3/uL (4.8-10.8) H 03/15/24 04:16
RBC 2.84 10^6/uL (4.70-6.10) L 03/15/24 04:16
Hgb 9.2 g/dL (13.0-18.0) L 03/15/24 04:16
Hct 27.4 % (39.0-52.0) L 03/15/24 04:16
Plt Count 205 10^3/uL (130-400) 03/15/24 04:16
Sodium 140 mmol/L (135-145) 03/15/24 04:16
Potassium 4.5 mmol/L (3.5-5.1) 03/15/24 04:16
Chloride 107 mmol/L (98-107) 03/15/24 04:16
Carbon Dioxide 26 mmol/L (22-30) 03/15/24 04:16
BUN 31 mg/dl (9-20) H 03/15/24 04:16
Creatinine 0.8 mg/dL (0.7-1.3) 03/15/24 04:16
eGFR > 60.00 03/15/24 04:16
Glucose 95 mg/dl (70-99) 03/15/24 04:16
Calcium 10.5 mg/dl (8.4-10.2) H 03/15/24 04:16
Ksf-G-Jhbedyijxvi Pept 1710 pg/ml 03/13/24 07:29
Albumin 3.7 g/dl (3.5-5.0) 03/13/24 07:28
Physical Exam
-
Vital Signs:
Vital Signs
Temp Pulse Resp BP Pulse Ox
97.6 F 65 23 143/77 94
03/15/24 08:22 03/15/24 11:45 03/15/24 11:45 03/15/24 08:00 03/15/24 11:45
Cardiovascular:: Regular rate and rhythm
Respiratory:: Bilateral: Coarse
Lung Excursion:: Normal
Abdomen:: Nontender and Soft
Bowel Sounds:: Normal
Extremity Edema:: None: Bilateral:
Lopez Catheter: No
[2024-03-15] MEDS: LOVENOX 40 MG SC (16:36)
[2024-03-15] MEDS: FLOMAX 0.400000000000000022 MG PO ×2 (16:36→20:16)
[2024-03-15] MEDS: ZETIA 10 MG PO (20:16)
[2024-03-15] MEDS: LIPITOR 40 MG PO (20:16)
[2024-03-15] MEDS: COLACE 100 MG PO (20:16)
[2024-03-15] MEDS: REFRESH CELLUVISC GEL 1 DROPS BOTH EYES (20:17)
[2024-03-15] MEDS: XANAX 2 MG PO (21:26)
[2024-03-16] VITALS (8 sets, daily range): BP systolic 110–162; BP diastolic 59–78; PULSE 66; O2SAT 95; BMI 23.8
--- NOTE | 2024-03-16 03:49 | DOWNTIME ---
There was a [employer] Client Surgical Training Specialist Downtime on 03/16/2024 from 0100 to 03/16/2024 at 0337. Downtime documentation of patient's care, including medication administrations, has been reconciled in the electronic record per guidelines. Refer to the
patient's paper chart under the miscellaneous tab to see printed paper medication records and downtime forms.
[2024-03-16 06:12] LABS: Blood Urea Nitrogen 26 mg/dl (9-20); Calcium 10.3 mg/dl (8.4-10.2); Carbon Dioxide 24 mmol/L (22-30); Chloride 107 mmol/L (98-107); Estimated Creatinine Clearance 72 ml/min; Glucose 86 mg/dl (70-99); Potassium 4.5 mmol/L (3.5-5.1); Sodium 138 mmol/L (135-145); eGFR > 60.00
--- NOTE | 2024-03-16 08:24 | W.PN.CD ---
Today's Communication / Plan
-
-
-
Cardiology will sign off
He knows to see his usual human resources benefits specialist in followup.
-
-
Impression / Plan
-
Background: 69M with severe coronary disease status post CABG with patent THIBODEAUX to LAD and LRA to RPDA on last cath, end-stage renal failure status post kidney transplant 1996, failed and second transplant in 2007, hypertension, hyperlipidemia,
peripheral artery disease, Castillo's palsy, chronic back pain, neuropathy, TIA, history of testicular cancer, anxiety and depression, gout, rheumatoid arthritis, history of alcohol abuse with sobriety since 2008, orchiectomy, history of
parathyroidectomy presented with chest pain & chills. Chief Risk Officer: BRIA Barclay Plum Packer: Dr. Murrieta Transplant: Dr. Diane ([place])
Current Issues:
Covid-19 infection, in an immunosuppressed host
Left lobe pneumonia
Abnormal troponin with chest pain on admit, peak trop 0.54. Will call it a Type II WY
- echo normal LVEF/wall motion, EKG w/o dynamic changes
- Given known CAD the stress to infection likely precipitated this small WY, cannot ruled out non-ischemic myocardial injury from Covid infection
- No further CP despite being off IV heparin
Established CAD
- Last cardiac cath in June 2023 with unsuccessful attempt of PCI to OM with Patent THIBODEAUX to LAD and LRA to RPDA graft. Severe [place] vessel disease not amenable to intervention.
Hypertension, on valsartan 80 mg twice a day and metoprolol 50 twice daily along with Imdur 90 twice daily
Prior renal transplant, on immunosuppressive therapy including tacrolimus, allopurinol, colchicine
Prior TIA
Subjective:
No CP
Physical Exam
Vital Signs/Labs
Vital Signs
Temp Pulse Resp BP Pulse Ox
98.5 F 58 19 150/76 92
03/16/24 04:57 03/16/24 06:00 03/16/24 06:00 03/16/24 06:00 03/16/24 02:00
03/15/24 03/16/24 03/17/24
06:59 06:59 06:59
Actual Weight 62.4 kg 62.8 kg
03/15/24 04:16
03/16/24 05:28
APTT 89.6 Sec (23.4-35.0) H 03/15/24 02:14
Magnesium 1.9 mg/dl (1.6-2.3) 03/15/24 04:16
03/13/24
07:29
Ovo-Y-Ysngepxbtgb Pept 1710
LAB Results
03/13/24 03/13/24 03/13/24
11:10 17:21 23:26
Troponin I 0.373 H* D 0.540 H* D Cancelled
03/14/24 03/14/24
00:12 20:45
Troponin I 0.505 H* 0.452 H*
Physical Exam
Constitutional: No acute distress
EENT: Anicteric
Cardiovascular: Rhythm & rate is regular
Respiratory: Respiratory effort normal
GI: Soft and Distention absent
Neuro/Psych: AO x 3
Data Reviewed
-
Date of Service: March 16, 2024
[2024-03-16] MEDS: IMDUR (EXTENDED RELEASE) 90 MG PO (09:09)
[2024-03-16] MEDS: MOLNUPIRAVIR (EUA) 800 MG PO (09:10)
[2024-03-16] MEDS: DIOVAN 80 MG PO (09:10)
[2024-03-16] MEDS: MUCINEX 600 MG PO (09:10)
[2024-03-16] MEDS: FLORASTOR 250 MG PO (09:11)
[2024-03-16] MEDS: TOPROL XL 50 MG PO (09:11)
[2024-03-16] MEDS: ZITHROMAX 500 MG PO (09:11)
[2024-03-16] MEDS: OMNICEF 300 MG PO (09:11)
[2024-03-16] MEDS: XANAX 1 MG PO (09:11)
[2024-03-16] MEDS: ASPIR LOW (ENTERIC COATED) 81 MG PO (09:11)
[2024-03-16] MEDS: REFRESH EYE DROPS (PF) 1 DROPS BOTH EYES (09:11)
[2024-03-16] MEDS: WELLBUTRIN XL (24 hour extended release) 300 MG PO (09:11)
[2024-03-16] MEDS: CELLCEPT 250 MG PO (09:12)
[2024-03-16] MEDS: VITAMIN D3 (cholecalciferol) 25 MCG PO (09:12)
[2024-03-16] MEDS: ROXICODONE 10 MG PO (09:12)
[2024-03-16] MEDS: PLAVIX 75 MG PO (09:12)
[2024-03-16] MEDS: PROGRAF 1 MG PO (09:12)
[2024-03-16] MEDS: PROTONIX 40 MG PO (09:13)
[2024-03-16] MEDS: COLCHICINE 0.599999999999999978 MG PO (09:13)
[2024-03-16] MEDS: ZYLOPRIM 300 MG PO (09:13)
[2024-03-16] MEDS: DELTASONE 5 MG PO (09:13)
[2024-03-16] MEDS: RANEXA EXTENDED RELEASE 500 MG PO (09:13)
[2024-03-16] MEDS: FEOSOL 325 MG PO (09:13)
--- NOTE | 2024-03-16 10:11 | W.PN.HOSP.TC ---
Today's Communication/Plan
-
Discharge
Assessment / Plan
Assessment / Plan
69-year-old male workup with chest pain around 4 AM. States that he had pain at the 'heart area' with no radiation. No shortness of breath. He took 4 nitro tablets and then called ambulance to come to the hospital. Pain slowly got better. He
also had cough with chills.
No chest pain last night. Slept well.
CVS: S1-S2 normal
Chest:few rales left base
Abdomen: Soft, NT / Bowel sounds present
Extremities: No edema
# Elevated troponin -type II AK per discussion cardiology
Troponin trending down
EKG without acute ischemia
Heparin drip to be stopped per cards
Aspirin / Plavix /metoprolol /Statin /valsartan/Imdur
Imdur was recently increased to 90 twice daily
Patient is also on Ranexa as outpatient
Routine echo-03/14/2024-normal LV size and function. Mild concentric LVH. EF 65 to 70%. Mild MR. Trace AI. Trace TR
# Coronary artery disease with history of stent
History of CABG
History of non-STEMI
Cath 06/2023-severe calcific multivessel CAD with patent THIBODEAUX-LAD and patent LRA�RPDA bypass grafts�.Unsuccessful attempted PCI of distal OM 2 branch due to inability to pass balloon catheter to the lesion site.
Medical therapy recommended
# COVID-19 infection
Not hypoxic
Paxlovid has interaction with Tacrolimus. Molnupiravir 6/10 doses given
Infectious disease consultation appreciated
# Left lower lobe pneumonia-because of low immunity will also treat for bacterial pneumonia
Ceftin and Zithromax 7/10 and 4/5 doses given
Sputum cultures are possible
Cultures negative
# Anemia-added p.o. iron
Pt aware re OP work up.
# Leukocytosis-likely secondary to Decadron given in the ER -improving
# History of kidney transplant 1996 which failed and got another transplant in 2007
Continue Prograf 1 mg twice daily
Continue CellCept 250 twice daily
Prednisone 5 mg daily
Follow[address] with [address]. Diane at [facility] had a Zoom appointment on January 19, [address] Murrieta at [facility]
Recent YURY treated at [facility] per patient
# Hypertension-valsartan 80 mg p.o. twice daily, metoprolol 50 twice daily
# Hyperlipidemia/atherosclerosis-Zetia, statin
# Aortic regurgitation
# Peripheral artery disease, Antiplatelets and Statin
# History of Castillo's palsy
# Chronic back pain/arthritis/sciatica/Neuropathy
Gabapentin
Opiate dependent for pain
# History of TIA-on Aspirin, Plavix, Statin
# History of testicular cancer with history of left orchiectomy
# Diverticulosis/History of IBS/History of hiatal hernia/History of bowel obstruction
# Anxiety/depression-continue Xanax
Patient states that he takes 2 mg at nighttime and 1 mg usually around 2 PM when he feels anxious.
Continue Wellbutrin 300 mg p.o. daily
# Gout-continue colchicine, allopurinol
# History of rheumatoid arthritis
# History of parathyroidectomy
# History of alcohol abuse sober since 2008
# Hypoalbuminemia
# Ex-smoker
# DVT prophylaxis subcutaneous heparin
# Full code
Discussed with Cards
D/W ID
D/W Nephrology
Discussed with nursing at bed side
Discharge today
Meds and OP follow up discussed
More than 30 minutes spent in discharge including
Final examination of the patient
Summarizing hospital stay
Instructions for continuing care to all relevant caregivers
Preparation of discharge records, prescriptions.
Total time spent (in minutes): 37
Anticipated Discharge: Today
Subjective/Interval History
-
Date of Service: March 16, 2024
Objective Data
-
Labs:
Laboratory Results
03/16/24
05:28
Sodium 138
Potassium 4.5
Chloride 107
Carbon Dioxide 24
BUN 26 H
Creatinine 0.8
Glucose 86
Calcium 10.3 H
Vital Signs:
Vital Signs
Temp Pulse Resp BP Pulse Ox
98.5 F 58 19 162/68 96
03/16/24 04:57 03/16/24 08:00 03/16/24 08:00 03/16/24 08:00 03/16/24 08:30
I&O
03/15/24 03/16/24 03/17/24
06:59 06:59 06:59
Intake Total 720 / 720 240 / 240
Output Total 400 / 400
Balance 720 / 720 -160 / -160
--- NOTE | 2024-03-16 10:14 | W.DS.TRANS ---
Addendum entered and electronically signed by Perez Jorge MD 03/16/24 16:12:
Dictation- [id number]
Original Note:
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
-
Discharge Instructions:
Discharge Diagnosis/Procedures Elevated troponin, coronary disease COVID-19
infection, left lower lobe pneumonia, anemia,
history of kidney transplant, hypertension, high
cholesterol, atherosclerosis, peripheral artery
disease, history of breast biopsy, chronic back
pain, history of TIA, diverticulosis, anxiety
and depression, gout, rheumatoid arthritis
Diet 2 Gram Sodium
Activity As tolerated
Driving Restrictions As prior to admission
Bathing Restrictions OK to Shower
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
Others Tests Chest x-ray 4 to 6 weeks
Other Services VN
Instructions:
Stand-Alone Forms:
Changes to Home Medications: Yes
Discharge Medications:
DC Medications w/original date entered in WhatsApp
colchicine 0.6 mg tablet 0.6 mg PO DAILY Gout 04/27/19
allopurinol 300 mg tablet 300 mg PO DAILY Gout 10/03/19
prednisone 5 mg tablet 5 mg PO DAILY Transplant 10/03/19
ranolazine 500 mg tablet,extended release,12 hr 500 mg PO BID Heart Failure 10/03/19
tamsulosin 0.4 mg capsule 0.4 mg PO BID@1700,2200 Urinary issue 10/03/19
ezetimibe 10 mg tablet 10 mg PO HS High cholesterol 01/26/20
atorvastatin 40 mg tablet 40 mg PO HS High cholesterol 10/24/20
methenamine hippurate 1 gram tablet (Hiprex) 1 g PO BID Urinary Issue 04/25/22
nitroglycerin 0.4 mg sublingual tablet 0.4 mg sublingual [id number] PRN chest pain 04/25/22
alprazolam 1 mg tablet 2 mg PO HSPRN PRN anxiety 12/10/23
bupropion HCl 300 mg 24 hr tablet, extended release (Wellbutrin XL) 300 mg PO DAILY Mental Health/Anxiety #0 tabs 12/14/23
clopidogrel 75 mg tablet 75 mg PO DAILY Blood clot prevention/tx #90 tabs 12/14/23
docusate sodium 100 mg capsule 100 mg PO HS Constipation #0 caps 12/14/23
isosorbide mononitrate 60 mg tablet,extended release 24 hr 60 mg PO BID Heart disease/condition #0 tabs 12/14/23
metoprolol succinate 50 mg tablet,extended release 24 hr 50 mg PO BID Heart disease/condition #0 tabs 12/14/23
mycophenolate mofetil 250 mg capsule (CellCept) 250 mg PO BID Transplant #0 caps 12/14/23
pantoprazole 40 mg tablet,delayed release 40 mg PO DAILY Gastrointestinal issue #90 tabs 12/14/23
valsartan 80 mg tablet 80 mg PO BID Blood pressure #0 tabs 12/14/23
artificial tears(hypromellose) 0.3 % eye gel 1 drp BOTH EYES HS Eye Condition 03/13/24
aspirin 81 mg tablet,delayed release 81 mg PO DAILY Blood clot prevention/tx 03/13/24
cholecalciferol (vitamin D3) 25 mcg (1,000 unit) tablet 25 mcg PO DAILY Supplement 03/13/24
isosorbide mononitrate 30 mg tablet,extended release 24 hr 30 mg PO BID Heart Disease/Condition 03/13/24
oxycodone-acetaminophen 10 mg-325 mg tablet 1 tab PO Q4H PRN severe pain 03/13/24
propylene glycol 0.6 % eye drops (Systane Complete) 1 drp BOTH EYES TID Eye Condition 03/13/24
sennosides 8.6 mg tablet (senna) 17.2 mg PO HS Gastrointestinal Issue 03/13/24
tacrolimus 1 mg capsule, immediate-release 1 mg PO Q12H Transplant 03/13/24
vitamins A,C,D-cojd-xarkgt 4,296 mcg-226 mg-90 mg capsule (PreserVision AREDS) 1 cap PO BID Supplement 03/13/24
azithromycin 250 mg tablet 500 mg (2 x 250 mg) PO DAILY Infection #1 tab 03/16/24
cefdinir 300 mg capsule 300 mg PO Q12 pneumonia #3 caps 03/16/24
guaifenesin 600 mg tablet, extended release 12 hr 600 mg PO Q12 Cough #10 tabs 03/16/24
molnupiravir 200 mg capsule (EUA) (Lagevrio) 800 mg (4 x 200 mg) PO BID covid #0 caps 03/16/24
Home Medication Changes
new
azithromycin 250 mg tablet 500 mg (2 x 250 mg) PO DAILY Infection #1 tab 03/16/24
cefdinir 300 mg capsule 300 mg PO Q12 pneumonia #3 caps 03/16/24
guaifenesin 600 mg tablet, extended release 12 hr 600 mg PO Q12 Cough #10 tabs 03/16/24
molnupiravir 200 mg capsule (EUA) (Lagevrio) 800 mg (4 x 200 mg) PO BID covid #0 caps 03/16/24
Pending Results: No
--- NOTE | 2024-03-16 10:39 | W.PN.ID1 ---
Date of Service
Date of Service: March 16, 2024
Today's Communication
- agree with molnupiravir x5 days
- would not increase steroids at this time
- agree with cefdinir/azithromcyin x5 days 03/13-03/17
- follow up with PCP
Assessment / Plan
COVID 19 Infection - mild
Immunosuppression - MMF, tacrolimus
Renal Transplant
RA
Multiple drug allergies/intolerances
- agree with molnupiravir x5 days
- would not increase steroids at this time
- agree with cefdinir/azithromcyin x5 days 03/13-03/17
- follow up with PCP
Chief Complaint
-: Other (covid-19 infection, immunosuppression)
Subjective / Review of Systems
afebrile
saturating well on room air
wbc improving
cr stable
blood cultures no growth
Vital Signs / Physical Exam
Vital Signs
Vital Signs
Temp Pulse Resp BP Pulse Ox
97.8 F 58 19 162/68 96
03/16/24 07:45 03/16/24 08:00 03/16/24 08:00 03/16/24 08:00 03/16/24 08:30
Physical Exam
Constitutional: No Acute Distress
Cardiovascular: Regular Rate and S1/S2; Negative Murmur or Rub
Pulmonary: Clear and Symmetric; Negative Wheezes or Rales
Gastrointestinal: Soft, Non Tender, Non Distended and Normal Bowel Sounds
Skin: Warm and Dry; Negative Rash or Jaundice
Objective Data
Lab Data
Lab Results
03/15/24 04:16
03/16/24 05:28
APTT 89.6 Sec (23.4-35.0) H 03/15/24 02:14
Estimated Creat Clear 72 ml/min 03/16/24 05:28
Lactic Acid 1.9 mmol/L (0.7-2.0) 03/13/24 07:29
Total Bilirubin 0.4 mg/dl (0.2-1.3) 03/13/24 07:28
AST 19 U/L (17-59) 03/13/24 07:28
ALT 15 U/L (0-50) 03/13/24 07:28
Alkaline Phosphatase 105 U/L (38-126) 03/13/24 07:28
C-Reactive Protein 19.60 mg/L (0.0-10.00) H 03/13/24 07:28
Most recent labs reviewed.
Micro Results:
03/13/24 07:28 Blood Culture - Preliminary
Blood/Venous No Growth in 72 hours- Final report to follow
03/14/24 17:19 Blood Culture - Preliminary
Blood/Venous No Growth in 24 hours- Final report to follow
03/13/24 07:29 Influenza Types A & B (GISELLE) - Final
Nasal Swab Negative for Influenza A & B, NAAT
Negative results must be combined with clinical observations
and patient history.
Nucleic Acid Amplification test (NAAT)performed on the
[employer] platform.
Care Review
Plan reviewed with: Physician (Dr Ania garrison)
--- NOTE | 2024-03-16 11:37 | W.PN.NEPH.PH ---
Today's Communication / Plan
-
No new recommendations
Assessment/Plan
-
Assessment:
renal txp in 2007 (prior 1996, failed)
COVID 19
LLL PNA
Type II SD
CAD
HTN
back pain
hx of TIA
Plan:
- Cr is currently at baseline
- cardiology on board for chest pain and known CAD, no plans for cath
- COVID-19 infection. should NOT use paxlovid as this can affect tac levels
- continue current IS with MMF, tac and prednisone as he is on room air. no need to hold MMF at this time
-Tacrolimus level 5 point
-
-
Date of Service: March 16, 2024
CC / HPI / ROS
-
Chief Complaint:
hx of renal txp
History of Present Illness:
COVID
chest pain
Creatinine at baseline
Review of Systems:
feeling improved
Labs
-
Labs:
WBC 13.3 10^3/uL (4.8-10.8) H 03/15/24 04:16
RBC 2.84 10^6/uL (4.70-6.10) L 03/15/24 04:16
Hgb 9.2 g/dL (13.0-18.0) L 03/15/24 04:16
Hct 27.4 % (39.0-52.0) L 03/15/24 04:16
Plt Count 205 10^3/uL (130-400) 03/15/24 04:16
Sodium 138 mmol/L (135-145) 03/16/24 05:28
Potassium 4.5 mmol/L (3.5-5.1) 03/16/24 05:28
Chloride 107 mmol/L (98-107) 03/16/24 05:28
Carbon Dioxide 24 mmol/L (22-30) 03/16/24 05:28
BUN 26 mg/dl (9-20) H 03/16/24 05:28
Creatinine 0.8 mg/dL (0.7-1.3) 03/16/24 05:28
eGFR > 60.00 03/16/24 05:28
Glucose 86 mg/dl (70-99) 03/16/24 05:28
Calcium 10.3 mg/dl (8.4-10.2) H 03/16/24 05:28
Umi-G-Ojyyzohoyas Pept 1710 pg/ml 03/13/24 07:29
Albumin 3.7 g/dl (3.5-5.0) 03/13/24 07:28
Physical Exam
-
Vital Signs:
Vital Signs
Temp Pulse Resp BP Pulse Ox
97.8 F 58 19 162/68 96
03/16/24 07:45 03/16/24 08:00 03/16/24 08:00 03/16/24 08:00 03/16/24 08:30
Cardiovascular:: Regular rate and rhythm
Respiratory:: Bilateral: Coarse
Lung Excursion:: Normal
Abdomen:: Nontender and Soft
Bowel Sounds:: Normal
Extremity Edema:: None: Bilateral:
Lopez Catheter: No
--- NOTE | 2024-03-16 13:51 | PTCARENOTE ---
Pt for d/c home. Instructions and med list reviewed. Belongings collected from room. Escorted off unit via wheelchair. D/c home with .
--- NOTE | 2024-03-16 16:30 | CM ---
Addendum entered by Vida Deng RN 03/16/24 16:32:
PT recommends HH.
Offered VN for PT and patient declined.
Original Note:
The patient was preparing for discharge today, and states he feels ready to go home. IMM completed.
The spouse will provide transport home today.
No CM d/c needs identified.
Plan home today.
== END 2024-03-16 13:45 | disposition home or self-care (01) | DRG 177 ==
LOC: IMU 14:31
PROVIDERS: Nurse Practitioner Family; ADMITTING PHYSICIAN Hospitalist; CONSULT PHYSICIAN Internal Medicine Cardiovascular Disease; EMERGENCY PHYSICIAN Emergency Medicine; FAMILY PHYSICIAN Family Medicine; OTHER PHYSICIAN Student in an Organized Health Care Education/Training Program
DX: U07.1 COVID-19 (principal); I21.A1 Myocardial infarction type 2; J15.9 Unspecified bacterial pneumonia; D84.821 Immunodeficiency due to drugs; Z94.0 Kidney transplant status; I13.2 Hypertensive heart and chronic kidney disease with heart failure and with stage 5 chronic kidney disease, or end stage renal disease; F11.20 Opioid dependence, uncomplicated; I25.10 Atherosclerotic heart disease of native coronary artery without angina pectoris; E78.00 Pure hypercholesterolemia, unspecified; M06.9 Rheumatoid arthritis, unspecified; I35.1 Nonrheumatic aortic (valve) insufficiency; I73.9 Peripheral vascular disease, unspecified; M54.30 Sciatica, unspecified side; G89.29 Other chronic pain; G62.9 Polyneuropathy, unspecified; M19.90 Unspecified osteoarthritis, unspecified site; D64.9 Anemia, unspecified; F41.9 Anxiety disorder, unspecified; F10.11 Alcohol abuse, in remission; E88.09 Other disorders of plasma-protein metabolism, not elsewhere classified; F32.A Depression, unspecified; M10.9 Gout, unspecified; Z95.5 Presence of coronary angioplasty implant and graft; Z95.1 Presence of aortocoronary bypass graft; Z90.79 Acquired absence of other genital organ(s); Z87.891 Personal history of nicotine dependence; Z85.47 Personal history of malignant neoplasm of testis; I25.2 Old myocardial infarction; Z79.624 Long term (current) use of inhibitors of nucleotide synthesis; Z79.52 Long term (current) use of systemic steroids; Z79.02 Long term (current) use of antithrombotics/antiplatelets; Z79.82 Long term (current) use of aspirin; Z90.89 Acquired absence of other organs; Z98.890 Other specified postprocedural states; Z86.73 Personal history of transient ischemic attack (TIA), and cerebral infarction without residual deficits; Z88.1 Allergy status to other antibiotic agents; Z88.3 Allergy status to other anti-infective agents; Z88.0 Allergy status to penicillin; Z88.2 Allergy status to sulfonamides; Z91.048 Other nonmedicinal substance allergy status; Z87.19 Personal history of other diseases of the digestive system
CPT/HCPCS: 71046; 80048; 80053; 80197; 82607; 82728; 83540; 83550; 83605; 83735; 83880; 84484; 85025; 85027; 85730; 86140; 86803; 87040; 87502; 87811; 93005; 93306; 94640; 96374; 96375; 97116; 97162; 97166; 97530; 99291